=== PATIENT | male | born 1945 | race Caucasian/White ===

== ENCOUNTER → 2016-09-14 | Outpatient (CLI) | payer MEDICARE, OTHER ==
[~2016-09-14] MED LIST: ALPR-557 GT; ALPR1T PO; ASP81CT PO; ASPI-875 PO; ATRV10T PO; BARIUM SUSPENSION 2.1% (VANILLA SILQ) 450 ML PO ONE; CATHETER FLUSH 10 ML SYR IV PRN; CITA-105 PO; CLOP75TA PO; CLR7.5T PO; CTLP20T PO; HYDR28CR10 TP; IBUP-30 PO; IOHEXOL 350 MG/ML 100 ML (OMNIPAQUE 350) VIAL IV ONE; ISM30TCR PO; LEVO200T30 PO; LOPE2CAP PO; LVT.1T PO; MTP100TCR PO; NEBI20TA2 PO; NFNEB10T PO; NS 100 ML (IVPB) BAG IV ONE; OMEG-9 PO; OMEP20CA6 PO; OMEP40CA36 PO; OMG1KC PO; PNT40TEC PO
[2016-09-14] MEDS: CATHETER FLUSH 10 ML SYR IV PRN ×2 (11:56→12:34)
[2016-09-14 12:09] LABS: BLOOD UREA NITROGEN 4 MG/DL (7-18); BUN/CREATININE RATIO 5 (0-20); CREATININE SERUM 0.83 MG/DL (0.60-1.30); GFR ESTIMATED > 60
--- NOTE | 2016-09-14 13:18 | Diagnostic Imaging Report ---
PROCEDURE: CT abdomen and pelvis with contrast. TECHNIQUE: Multiple contiguous axial images were obtained through the abdomen and pelvis after administration of intravenous contrast. INDICATION: Prostate cancer. COMPARISON: 05/31/14 FINDINGS: The lung bases demonstrate no significant abnormality. There is diffuse hepatic steatosis. The right hepatic lobe demonstrates a 1.5 cm hypodense lesion adjacent to the gallbladder and in the upper aspect of the left hepatic lobe there is a 1.7 cm hypodense lesion noted posteriorly. When compared to 05/31/2014 exam, these appear stable suggestive of benign etiology, possibly cysts. No calcified gallstones are seen. The spleen is not enlarged. The pancreas demonstrates a nonspecific focal calcification in the uncinate process similar to 05/31/14 with no associated mass identified. The adrenal glands appear unremarkable. The kidneys have symmetric enhancement and excretion. There is no hydronephrosis. The abdominal aorta is normal in caliber. No para-aortic significantly enlarged lymph nodes are seen. Tiny fat-containing periumbilical hernia seen. There is a direct fat-containing right inguinal hernia. The prostate is enlarged and slightly heterogeneous. It measures 5.3 cm in transverse dimension. There is no bowel obstruction. There is diverticulosis mostly in the sigmoid colon with no evidence of diverticulitis. No significant free fluid or fluid collection in the abdomen or pelvis is seen. The urinary bladder appears unremarkable. IMPRESSION: 1. The prostate is enlarged and heterogeneous with no abdominal or pelvic lymphadenopathy or evidence of metastasis. 2. Hepatic steatosis. 3. Diverticulosis. No diverticulitis. 4. Fat-containing periumbilical and right inguinal hernias. Dictated by: Dictated on workstation # [id number]
--- NOTE | 2016-09-14 16:06 | Diagnostic Imaging Report ---
Whole body bone scan. Technique: After the intravenous administration of 27.1 mCi of Technetium 99m MDP, whole body delayed phase bone scan images were obtained with lateral views of the head and neck and the chest regions. Indication: Prostate cancer. Findings: There is normal distribution of the tracer in the osseous structures with mild increased tracer activity in joints compatible with degenerative changes. There is photopenia around the knees suggestive of knee replacement. Urinary tract excretion is noted. No suspicious foci of increased activity particularly within the axial skeleton to suggest metastasis. IMPRESSION: No scintigraphic evidence of osseous metastasis. Dictated by: Dictated on workstation # [id number]
== END ==
LOC: CARD 11:21
PROVIDERS: ATTEND Urology
DX: C61 Malignant neoplasm of prostate (principal)
CPT/HCPCS: 36415; 74177; 78306; 82565; 84520

== ENCOUNTER 2017-05-26 10:40 | Day surgery (SDC) | payer MEDICARE, OTHER ==
[2017-05-26] VITALS (10 sets, daily range): BP systolic 114–151; BP diastolic 72–93
[~2017-05-26] VITALS: Ht 167.6 cm; Wt 79.8 kg
[~2017-05-26 10:40] MED LIST changes: -BARIUM SUSPENSION 2.1% (VANILLA SILQ) 450 ML PO ONE; -CATHETER FLUSH 10 ML SYR IV PRN; -IOHEXOL 350 MG/ML 100 ML (OMNIPAQUE 350) VIAL IV ONE; -NS 100 ML (IVPB) BAG IV ONE
--- OUTSIDE RECORDS SUMMARY | 2017-05-26 10:43 | XMS REPORT ---
Author BOB Gudino Organization [employer] Address Unknown Phone Unavailable Care Team Providers Care Embalmer Apprentice Name Role Phone BOB JOEL CP Unavailable Allergies No Known Allergies Problems Problem Type Condition ICD-9 Code Onset Dates Condition Status Assessment Dental examination V72.2 Active Medications No Known Medications Procedures Procedure Coding System Code Date Billing Notes on claim CPT-4 EC109 Dec 05, 2014 CROWN - PORCELAIN/CERAMIC SUBSTRATE CPT-4 D2740 Dec 05, 2014 Results No Known Results Summary Purpose [employer] Submission
--- OUTSIDE RECORDS SUMMARY | 2017-05-26 10:43 | XMS REPORT ---
Author CONCETTA Lopez Organization [employer] Address Unknown Phone Unavailable Care Team Providers Care Gill Tender Name Role Phone CONCETTA HERNANDEZ CP Unavailable Allergies, Adverse Reactions, Alerts Substance Reaction Event Type Sulfamethoxazole Info Not Available Drug Allergy Penicillin V Potassium Info Not Available Drug Allergy Problems Problem Type Condition Code Onset Dates Condition Status Assessment Dental examination Z01.20 Active Medications No Known Medications Procedures Procedure Coding System Code Date Billing Notes on claim CPT-4 EC109 Jan 01, 2015 CROWN - PORCELAIN/CERAMIC SUBSTRATE CPT-4 D2740 Dec 31, 2014 Vital Signs Date/Time: Jan 01, 2015 Blood Pressure Diastolic 91 mmHg Blood Pressure Systolic 130 mmHg Results No Known Results Summary Purpose [employer] Submission
--- OUTSIDE RECORDS SUMMARY | 2017-05-26 10:43 | XMS REPORT ---
Author Author KIMBERLI GARY Organization [employer] Address Unknown Phone Unavailable Care Team Providers Care Dental Insurance Biller Name Role Phone KIMBERLI GARY CP Unavailable Allergies No Known Allergies Problems Problem Type Condition Code Onset Dates Condition Status Assessment Dental examination Z01.20 Active Problem Major depressive disorder, recurrent episode, moderate F33.1 Active Medications No Known Medications Procedures Procedure Coding System Code Date Billing Notes on claim CPT-4 EC109 Dec 17, 2015 Results No Known Results Summary Purpose [employer] Submission
--- OUTSIDE RECORDS SUMMARY | 2017-05-26 10:43 | XMS REPORT ---
Author ANABELL Fallon Organization [employer] Address Unknown Phone Unavailable Care Team Providers Care Hadoop Infrastructure Architect Name Role Phone ANABELL SILVA CP Unavailable Allergies No Known Allergies Problems Problem Type Condition ICD-9 Code Onset Dates Condition Status Assessment Dental examination V72.2 Active Medications No Known Medications Procedures Procedure Coding System Code Date INTRAORL-PERIAPICAL 1 FILM 83067 CPT-4 D0220 October 19, 2014 INTRAORL-PERIAPICAL EA ADD FILM CPT-4 D0230 October 19, 2014 COMP ORAL EVALUATION - NEW/EST PT CPT-4 D0150 October 19, 2014 TOPICAL FLUORIDE VARNISH CPT-4 D1206 October 19, 2014 BITEWINGS - FOUR FILMS CPT-4 D0274 October 19, 2014 INTRAORL-PERIAPICAL EA ADD FILM CPT-4 D0230 October 19, 2014 PROPHYLAXIS - ADULT CPT-4 D1110 October 19, 2014 PANORAMIC FILM SEE ALSO CODE 88022 CPT-4 D0330 October 19, 2014 Results No Known Results Summary Purpose [employer] Submission
--- OUTSIDE RECORDS SUMMARY | 2017-05-26 10:43 | XMS REPORT ---
Author Author KIMBERLI GARY [facility] Address Unknown Care Team Providers Care Hardwood Flooring Specialist Name Role Phone KIMBERLI GARY Unavailable PROBLEMS Type Condition ICD9-CM Code DTO32-RL Code Onset Dates Condition Status SNOMED Code Problem Major depressive disorder, recurrent episode, moderate F33.1 Active [id number] ALLERGIES Substance Reaction Event Type Date Status Sulfamethoxazole Unknown Drug Allergy Jun, Active Penicillin V Potassium Unknown Drug Allergy Jun, Active SOCIAL HISTORY Never Assessed PLAN OF CARE Activity Details Follow Up prn Reason:PT WILL CALL VITAL SIGNS Blood pressure systolic 155 mmHg 2016-07-07 Blood pressure diastolic 85 mmHg 2016-07-07 MEDICATIONS Medication Instructions Dosage Frequency Start Date End Date Duration Status Xanax Active Bystolic Active Synthroid Active Aspir-81 Active Lexapro Active Lipitor Active RESULTS No Results PROCEDURES Procedure Date Ordered Result Body Site Dental no charge July 07, 2016 IMMUNIZATIONS No Known Immunizations MEDICAL (GENERAL) HISTORY Type Description Date Medical History HBP Medical History Thyroid Medical History Blood thinners Surgical History Stent placed 2012
--- OUTSIDE RECORDS SUMMARY | 2017-05-26 10:44 | XMS REPORT | Continuity of Care Document ---
Author Author [facility] Organization [facility] Address Unknown Phone Unavailable Allergies Active Description Code Type Severity Reaction Onset Reported/Identified Relationship to Patient Clinical Status Yes Penicillins [id number] Drug Allergy Unknown N/A 03/09/2011 Medications There is no data. Problems Date Dx Coded Attending Type Code Diagnosis Diagnosed By 03/13/2011 Ot 244.0 POSTSURGICAL HYPOTHYROID 03/13/2011 Ot 276.1 HYPOSMOLALITY 03/13/2011 Ot 291.0 DELIRIUM TREMENS 03/13/2011 Ot 300.00 ANXIETY STATE NOS 03/13/2011 Ot 303.00 AC ALCOHOL INTOX-UNSPEC 03/13/2011 Ot 401.9 HYPERTENSION NOS 03/13/2011 Ot 411.1 INTERMED CORONARY SYND 03/13/2011 Ot 414.01 CORONARY ATHEROSCLEROSIS OF [place] CORON 03/13/2011 Ot 571.0 ALCOHOLIC FATTY LIVER 03/13/2011 Ot 787.60 FULL INCONTINENCE OF FECES 03/13/2011 Ot V12.79 PERSONAL HISTORY OTH SPEC DIGESTIVE SYST 03/13/2011 Ot V15.82 HISTORY OF TOBACCO USE 03/13/2011 Ot V17.3 FAM HX- ISCHEM HEART DIS 01/03/2013 SELAM CALLEJAS MD Ot 244.9 HYPOTHYROIDISM NOS 01/03/2013 SELAM CALLEJAS MD Ot 272.4 HYPERLIPIDEMIA NEC/NOS 01/03/2013 SELAM CALLEJAS MD Ot 300.00 ANXIETY STATE NOS 01/03/2013 SELAM CALLEJAS MD Ot 305.1 TOBACCO USE DISORDER 01/03/2013 SELAM CALLEJAS MD Ot 401.9 HYPERTENSION NOS 01/03/2013 SELAM CALLEJAS MD Ot 414.01 CORONARY ATHEROSCLEROSIS OF [place] CORON 01/03/2013 SELAM CALLEJAS MD Ot 414.4 CORONARY ATHEROSCLEROSIS DUE TO [place] 01/03/2013 SELAM CALLEJAS MD Ot 530.81 ESOPHAGEAL REFLUX 01/03/2013 SELAM CALLEJAS MD Ot 786.50 CHEST PAIN NOS 01/03/2013 SELAM CALLEJAS MD Ot V45.82 PERCUTANEOUS TRANSLUM CORON ANGIOPLASTY 01/03/2013 SELAM CALLEJAS MD Ot V58.66 LONG-TERM (CURRENT) USE OF ASPIRIN 01/03/2013 SELAM CALLEJAS MD Ot V58.69 OTH MED,LT,CURRENT USE 06/22/2014 Ot 550.90 06/22/2014 Ot 553.1 06/22/2014 Ot 562.10 06/22/2014 Ot 571.8 12/27/2014 ELIZABETH ANAND REAL ESTATE APPRAISER Ot 611.71 01/14/2015 ELIZABETH ANAND REAL ESTATE APPRAISER Ot 611.71 09/27/2015 Ot 562.10 DIVERTICULOSIS COLON (W/O MENT OF HEMORR 09/27/2015 Ot 786.50 CHEST PAIN NOS 09/27/2015 Ot 789.00 ABDOMINAL PAIN, UNSPECIFIED SITE 11/22/2015 Ot 401.1 BENIGN HYPERTENSION 11/22/2015 Ot 562.10 DIVERTICULOSIS COLON (W/O MENT OF HEMORR 11/22/2015 Ot 786.50 CHEST PAIN NOS 11/22/2015 Ot 789.00 ABDOMINAL PAIN, UNSPECIFIED SITE 11/22/2015 SELAM CALLEJAS MD Ot 397.0 TRICUSPID VALVE DISEASE 11/22/2015 SELAM CALLEJAS MD Ot 414.00 CORON ATHEROSCLER NOS TYPE VESSEL, NATIV 11/22/2015 SELAM CALLEJAS MD Ot 424.0 MITRAL VALVE DISORDER 11/22/2015 SELAM CALLEJAS MD Ot 786.50 CHEST PAIN NOS 11/22/2015 SELAM CALLEJAS MD Ot 414.01 CORONARY ATHEROSCLEROSIS OF [place] CORON 11/22/2015 SELAM CALLEJAS MD Ot 786.50 CHEST PAIN NOS 11/22/2015 CANDIDO ESCALANTE MD Ot 331.9 CEREB DEGENERATION NOS 11/22/2015 CANDIDO ESCALANTE MD Ot 721.3 LUMBOSACRAL SPONDYLOSIS 11/22/2015 CANDIDO ESCALANTE MD Ot 723.0 CERVICAL SPINAL STENOSIS 11/22/2015 CANDIDO ESCALANTE MD Ot 782.0 SKIN SENSATION DISTURB 11/22/2015 CANDIDO ESCALANTE MD Ot 959.01 HEAD INJURY, NOS 11/22/2015 CANDIDO ESCALANTE MD Ot E888.9 FALL NOS 11/22/2015 Ot 550.90 UNILAT INGUINAL HERNIA 11/22/2015 Ot 553.1 UMBILICAL HERNIA 11/22/2015 Ot 562.10 DIVERTICULOSIS COLON (W/O MENT OF HEMORR 11/22/2015 Ot 571.8 CHRONIC LIVER DIS NEC 11/22/2015 CHENG ELIZABETHBirgit Live APRN Ot 611.71 MASTODYNIA 11/25/2015 KIRAN CANTU Ot E78.2 MIXED HYPERLIPIDEMIA 11/25/2015 KIARN CANTU Ot I10 ESSENTIAL (PRIMARY) HYPERTENSION 11/25/2015 MIYA RODGERS, KIRAN Dowd Ot I25.10 ATHSCL HEART DISEASE OF [place] CORONARY 11/25/2015 KIARN CANTU Ot Z72.0 TOBACCO USE 11/28/2015 KIRAN CANTU Ot E78.2 MIXED HYPERLIPIDEMIA 11/28/2015 ZEE CANTUTH Noemí Ot I10 ESSENTIAL (PRIMARY) HYPERTENSION 11/28/2015 KIRAN CANTU Ot I25.10 ATHSCL HEART DISEASE OF [place] CORONARY 11/28/2015 KIRAN CANTU Ot Z72.0 TOBACCO USE 12/03/2015 KIRAN CANTU Ot E78.2 MIXED HYPERLIPIDEMIA 12/03/2015 ZEE CANTUTH K Ot I10 ESSENTIAL (PRIMARY) HYPERTENSION 12/03/2015 KIRAN CANTU Ot I25.10 ATHSCL HEART DISEASE OF [place] CORONARY 12/03/2015 KIRAN CANTU K Ot Z72.0 TOBACCO USE 12/17/2015 KIRAN CANTU Ot E78.2 MIXED HYPERLIPIDEMIA 12/17/2015 ZEE CANTUTH K Ot I10 ESSENTIAL (PRIMARY) HYPERTENSION 12/17/2015 KIRAN CANTU K Ot I25.10 ATHSCL HEART DISEASE OF [place] CORONARY 12/17/2015 KIRAN CANTU Ot Z72.0 TOBACCO USE 12/18/2015 KIRAN CANTU Ot E78.2 MIXED HYPERLIPIDEMIA 12/18/2015 ZEE CANTUTH K Ot I10 ESSENTIAL (PRIMARY) HYPERTENSION 12/18/2015 KIRAN CANTU Ot I25.10 ATHSCL HEART DISEASE OF [place] CORONARY 12/18/2015 KIRAN CANTU Ot Z72.0 TOBACCO USE 09/09/2016 SELAM CALLEJAS MD Ot 397.0 TRICUSPID VALVE DISEASE 09/09/2016 SELAM CALLEJAS MD Ot 414.00 CORON ATHEROSCLER NOS TYPE VESSEL, NATIV 09/09/2016 SELAM CALLEJAS MD Ot 424.0 MITRAL VALVE DISORDER 09/09/2016 SELAM CALLEJAS MD Ot 786.50 CHEST PAIN NOS 09/09/2016 SELAM CALLEJAS MD Ot 414.01 CORONARY ATHEROSCLEROSIS OF [place] CORON 09/09/2016 SELAM CALLEJAS MD Ot 786.50 CHEST PAIN NOS 09/09/2016 CANDIDO ESCALANTE MD Ot 331.9 CEREB DEGENERATION NOS 09/09/2016 CANDIDO ESCALANTE MD Ot 721.3 LUMBOSACRAL SPONDYLOSIS 09/09/2016 CANDIDO ESCALANTE MD Ot 723.0 CERVICAL SPINAL STENOSIS 09/09/2016 CANDIDO ESCALANTE MD Ot 782.0 SKIN SENSATION DISTURB 09/09/2016 CANDIDO ESCALANTE MD Ot 959.01 HEAD INJURY, NOS 09/09/2016 CANDIDO ESCALANTE MD Ot E888.9 FALL NOS 09/09/2016 Ot 550.90 UNILAT INGUINAL HERNIA 09/09/2016 Ot 553.1 UMBILICAL HERNIA 09/09/2016 Ot 562.10 DIVERTICULOSIS COLON (W/O MENT OF HEMORR 09/09/2016 Ot 571.8 CHRONIC LIVER DIS NEC 09/09/2016 ELIZABETH ANAND APRN Ot 611.71 MASTODYNIA 09/09/2016 KIRAN CANTU Ot E78.2 MIXED HYPERLIPIDEMIA 09/09/2016 KIRAN CANTU Ot I10 ESSENTIAL (PRIMARY) HYPERTENSION 09/09/2016 KIRAN CANTU Ot I25.10 ATHSCL HEART DISEASE OF [place] CORONARY 09/09/2016 KIRAN CANTU Ot Z72.0 TOBACCO USE 09/09/2016 KIRAN CANTU Ot E78.2 MIXED HYPERLIPIDEMIA 09/09/2016 KIRAN CANTU Ot I10 ESSENTIAL (PRIMARY) HYPERTENSION 09/09/2016 KIRAN CANTU Ot I25.10 ATHSCL HEART DISEASE OF [place] CORONARY 09/09/2016 KIRAN CANTU Ot Z72.0 TOBACCO USE 09/10/2016 SELAM CALLEJAS MD Ot 397.0 TRICUSPID VALVE DISEASE 09/10/2016 SELAM CALLEJAS MD Ot 414.00 CORON ATHEROSCLER NOS TYPE VESSEL, NATIV 09/10/2016 SELAM CALLEJAS MD Ot 424.0 MITRAL VALVE DISORDER 09/10/2016 SELAM CALLEJAS MD Ot 786.50 CHEST PAIN NOS 09/10/2016 SELAM CALLEJAS MD Ot 414.01 CORONARY ATHEROSCLEROSIS OF [place] CORON 09/10/2016 SELAM CALLEJAS MD Ot 786.50 CHEST PAIN NOS 09/10/2016 CANDIDO ESCALANTE MD Ot 331.9 CEREB DEGENERATION NOS 09/10/2016 CANDIDO ESCALANTE MD Ot 721.3 LUMBOSACRAL SPONDYLOSIS 09/10/2016 CANDIDO ESCALANTE MD Ot 723.0 CERVICAL SPINAL STENOSIS 09/10/2016 CANDIDO ESCALANTE MD Ot 782.0 SKIN SENSATION DISTURB 09/10/2016 CANDIDO ESCALANTE MD Ot 959.01 HEAD INJURY, NOS 09/10/2016 CANDIDO ESCALANTE MD Ot E888.9 FALL NOS 09/10/2016 Ot 550.90 UNILAT INGUINAL HERNIA 09/10/2016 Ot 553.1 UMBILICAL HERNIA 09/10/2016 Ot 562.10 DIVERTICULOSIS COLON (W/O MENT OF HEMORR 09/10/2016 Ot 571.8 CHRONIC LIVER DIS NEC 09/10/2016 ELIZABETH ANAND APRN Ot 611.71 MASTODYNIA 09/10/2016 KIRAN CANTU Ot E78.2 MIXED HYPERLIPIDEMIA 09/10/2016 KIRAN CANTU Ot I10 ESSENTIAL (PRIMARY) HYPERTENSION 09/10/2016 KIRAN CANTU Ot I25.10 ATHSCL HEART DISEASE OF [place] CORONARY 09/10/2016 KIRAN CANTU Ot Z72.0 TOBACCO USE 09/10/2016 KIRAN CANTU Ot E78.2 MIXED HYPERLIPIDEMIA 09/10/2016 KIRAN CANTU Ot I10 ESSENTIAL (PRIMARY) HYPERTENSION 09/10/2016 KIRAN CATNU Ot I25.10 ATHSCL HEART DISEASE OF [place] CORONARY 09/10/2016 KIRAN CANTU Ot Z72.0 TOBACCO USE 09/14/2016 SELAM CALLEJAS MD Ot 397.0 TRICUSPID VALVE DISEASE 09/14/2016 SELAM CALLEJAS MD Ot 414.00 CORON ATHEROSCLER NOS TYPE VESSEL, NATIV 09/14/2016 SELAM CALLEJAS MD Ot 424.0 MITRAL VALVE DISORDER 09/14/2016 SELAM CALLEJAS MD Ot 786.50 CHEST PAIN NOS 09/14/2016 SELAM CALLEJAS MD Ot 414.01 CORONARY ATHEROSCLEROSIS OF [place] CORON 09/14/2016 SELAM CALLEJAS MD Ot 786.50 CHEST PAIN NOS 09/14/2016 CANDIDO ESCALANTE MD Ot 331.9 CEREB DEGENERATION NOS 09/14/2016 CANDIDO ESCALANTE MD Ot 721.3 LUMBOSACRAL SPONDYLOSIS 09/14/2016 CANDIDO ESCALANTE MD Ot 723.0 CERVICAL SPINAL STENOSIS 09/14/2016 CANDIDO ESCALANTE MD Ot 782.0 SKIN SENSATION DISTURB 09/14/2016 CANDIDO ESCALANTE MD Ot 959.01 HEAD INJURY, NOS 09/14/2016 CANDIDO ESCALANTE MD Ot E888.9 FALL NOS 09/14/2016 Ot 550.90 UNILAT INGUINAL HERNIA 09/14/2016 Ot 553.1 UMBILICAL HERNIA 09/14/2016 Ot 562.10 DIVERTICULOSIS COLON (W/O MENT OF HEMORR 09/14/2016 Ot 571.8 CHRONIC LIVER DIS NEC 09/14/2016 ELIZABETH ANAND APRN Ot 611.71 MASTODYNIA 09/14/2016 KIRAN CANTU Ot E78.2 MIXED HYPERLIPIDEMIA 09/14/2016 KIRAN CANTU Ot I10 ESSENTIAL (PRIMARY) HYPERTENSION 09/14/2016 KIRAN CANTU Ot I25.10 ATHSCL HEART DISEASE OF [place] CORONARY 09/14/2016 KIRAN CANTU Ot Z72.0 TOBACCO USE 09/14/2016 KIRAN CANTU Ot E78.2 MIXED HYPERLIPIDEMIA 09/14/2016 KIRAN CANTU Ot I10 ESSENTIAL (PRIMARY) HYPERTENSION 09/14/2016 KIRAN CANTU Ot I25.10 ATHSCL HEART DISEASE OF [place] CORONARY 09/14/2016 KIRAN CANTU Ot Z72.0 TOBACCO USE 09/14/2016 KIRAN CANTU Ot E78.2 MIXED HYPERLIPIDEMIA 09/14/2016 KIRAN CANTU Ot I10 ESSENTIAL (PRIMARY) HYPERTENSION 09/14/2016 KIRAN CANTU Ot I25.10 ATHSCL HEART DISEASE OF [place] CORONARY 09/14/2016 KIRAN CANTU Ot Z72.0 TOBACCO USE 09/14/2016 YANET ALONSO, SAY Becerra Ot C61 MALIGNANT NEOPLASM OF PROSTATE 09/16/2016 SAY HOLT MD, Ot C61 MALIGNANT NEOPLASM OF PROSTATE 10/07/2016 SAY HOLT MD, Ot C61 MALIGNANT NEOPLASM OF PROSTATE Procedures Code Description Performed By Performed On 94.62 03/09/2011 88.56 03/10/2011 00.40 03/12/2011 00.45 03/12/2011 00.66 03/12/2011 36.07 03/12/2011 Results Test Result Range [id number] - 09/14/16 11:51 Serum or plasma urea nitrogen measurement (mass/volume) 4 mg/dL 7-18 Serum or plasma creatinine measurement (mass/volume) 0.83 mg/dL 0.60-1.30 Serum or plasma urea nitrogen/creatinine mass ratio 5 0- 20 Serum or plasma creatinine measurement with calculation of estimated glomerular filtration rate > NRG Encounters ACCT No. Visit Date/Time Discharge Status Pt. Type Provider Facility Loc./Unit Complaint [id number] 09/14/2016 11:21:00 09/14/2016 23:59:59 CLS Outpatient SAY HOLT MD [facility] CARD CA PROSTATE [id number] 11/27/2015 11:26:00 11/27/2015 23:59:59 CLS Outpatient KIRAN CANTU [facility] CARD CAD,HTN,HLP [id number] 11/22/2015 12:49:00 11/22/2015 23:59:59 CLS Outpatient KIRAN CANTU [facility] CARD CAD,HTN,HLP [id number] 12/07/2014 08:58:00 12/07/2014 23:59:59 CLS Outpatient ELIZABETH ANAND APRN [facility] RAD LEFT BREAST PAIN [id number] 08/18/2013 13:46:00 08/18/2013 23:59:59 CLS Outpatient CANDIDO ESCALANTE MD [facility] RAD FALL TRAUMA TO HEAD [id number] 03/27/2013 13:17:00 03/27/2013 23:59:59 CLS Outpatient CANDIDO ESCALANTE MD [facility] RAD LEFT SIDE [place], SPASTICITY [id number] 01/03/2013 10:28:00 01/03/2013 17:00:00 DIS Outpatient SELAM CALLEJAS MD [facility] CATH CHEST PAIN,CAD,HTN,SOB [id number] 12/06/2012 11:56:00 12/06/2012 23:59:59 CLS Outpatient SELAM CALLEJAS MD [facility] RAD CP,CAD [id number] 12/01/2012 07:53:00 12/01/2012 23:59:59 CLS Outpatient SELAM CALLEJAS MD [facility] CARD CP,CAD [id number] 11/22/2015 12:49:00 Document Registration [id number] 05/31/2014 10:04:00 Document Registration [id number] 03/09/2011 16:09:00 Document Registration [id number] 03/09/2011 13:47:00 Document Registration [id number] 02/23/2011 10:43:00 Document Registration
[2017-05-26] MEDS ORDERED: NS IV 1000 ML 1,000 ML ONE (11:42)
[2017-05-26] MEDS ORDERED: HEParin (CATH LAB) 2,000 ML IV ONE (11:42)
[2017-05-26] MEDS ORDERED: LIDOCAINE 1% INJ 50 ML (XYLOCAINE) VIAL ONE (11:42)
[2017-05-26] MEDS ORDERED: INFLUENZA TRIvalent 2017-2018 0.5 ML/45 MCG SYR IM ONE (12:15)
[2017-05-26] MEDS ORDERED: NS IV 1000 ML 1,000 ML IV ONE (12:15)
[2017-05-26 12:17] LABS: HEMOGLOBIN 15.4 G/DL (13.3-17.7); MEAN PLATELET VOLUME 9.7 FL (7.4-10.4); RED BLOOD COUNT 4.88 10^6/uL (4.35-5.85); RED CELL DISTRIBUTION WIDTH 13.4 % (10.0-14.5); WHITE BLOOD COUNT 5.6 10^3/uL (4.3-11.0)
[2017-05-26] MEDS ORDERED: LEVO100T7 PO (12:22)
[2017-05-26] MEDS ORDERED: NFNEB10T PO (12:23)
[2017-05-26] MEDS ORDERED: ESCI20TA PO (12:23)
[2017-05-26] MEDS ORDERED: FOLI-88 PO (12:24)
[2017-05-26] MEDS ORDERED: ALPR1TAB7 PO (12:25)
[2017-05-26 12:28] LABS: PROTHROMBIN TIME PATIENT 13.6 SEC (12.2-14.7)
--- NOTE | 2017-05-26 12:35 | Diagnostic Imaging Report ---
INDICATION: pre op heart cath COMPARISON: 01/03/2013 FINDINGS: Single frontal view of the chest demonstrates normal heart size and pulmonary vascularity. The lungs are well aerated and clear. No large pleural effusion or pneumothorax is seen. The visualized osseous structures show no acute abnormalities. There is calcified aortic atherosclerosis. IMPRESSION: 1. No acute cardiopulmonary process. Dictated by: Dictated on workstation # [id number]
[2017-05-26 12:36] LABS: ALANINE AMINOTRANSFERASE 50 U/L (0-55); ALBUMIN 3.7 GM/DL (3.2-4.5); ALKALINE PHOSPHATASE 92 U/L (40-136); BILIRUBIN,TOTAL 1.2 MG/DL (0.1-1.0); BUN/CREATININE RATIO 6; CALCIUM 8.5 MG/DL (8.5-10.1); CARBON DIOXIDE 22 MMOL/L (21-32); CHLORIDE 101 MMOL/L (98-107); CHOLESTEROL 126 MG/DL (< 200); CREATININE SERUM 0.62 MG/DL (0.60-1.30); GFR ESTIMATED > 60; GLUCOSE 84 MG/DL (70-105); HDL CHOLESTEROL 51 MG/DL (40-60); POTASSIUM 3.8 MMOL/L (3.6-5.0); SODIUM 135 MMOL/L (135-145); TOTAL PROTEIN 7.2 GM/DL (6.4-8.2); TRIGLYCERIDES 58 MG/DL (<150); VLDL CHOLESTEROL 12 MG/DL (5-40)
[2017-05-26] MEDS ORDERED: fentaNYL INJECTION 100 MCG/2 ML AMP ONE (14:39)
[2017-05-26] MEDS ORDERED: MIDAZOLAM 5 MG/5 ML (VERSED) VIAL ONE (14:39)
--- NOTE | 2017-05-26 14:55 | Cardiac Procedure Note-CS/ASA ---
Pre-Procedure Note Pre-Op Procedure Note H&P Reviewed The H&P was reviewed, patient examined and no changes noted. Date H&P Reviewed: May 26, 2017 Time H&P Reviewed: 14:55 Conscious Sedation Pre-Proced Time Reviewed: 14:55 ASA Class: 3 Airway Mallampati Classification: ([place] appropriate class) I. II. III, IV Lungs Heart ASA score ASA 1: a normal healthy patient ASA 2: a patient with a mild systemic disease (mid diabetes, controlled hypertension, obesity x ASA 3: a patient with a severe systemic disease that limits activity (angina , COPD, prior Myocardial infarction) ASA 4: a patient with an incapacitating disease that is a constant threat to life (CHF, renal failure) ASA 5: a moribund patient not expected to survive 24 hrs. (ruptured aneurysm) ASA 6: a declared brain patient whose organs are being harvested. For emergent operations, add the letter E after the classification Grade 3 Sedation Plan: Analgesia, Amnesia, Plan communicated to team members, Discussed options with patient/fam, Discussed risks with patient/fam Note The patient is an appropriate candidate to undergo the planned procedure, sedation, and anesthesia. The patient immediately re-assessed prior to indication. SELAM CALLEJAS MD May 26, 2017 14:55
[2017-05-26] MEDS ORDERED: NS IV 1000 ML 1,000 ML IV SCH (15:05)
--- NOTE | 2017-05-26 15:07 | Discharge Inst-Post CATH ---
Discharge Inst-CATH Post Cardiac Cath D/C Inst Follow Up/Plan Appointment with Dr. Coughlin's office in 4 weeks CARDIAC CATH DISCHARGE INSTRUCTIONS *Hold Metformin for 48 hours post heart cath. ACTIVITY * Go Home directly and rest. * Limit activity of the leg (or wrist if it was used) for 7 days including aerobics, swimming, jogging, bicycling, etc. * Restrict stair-climbing for 7 days if possible, if not, climb up with your non -cath leg, then bring together on the same step. * Avoid lifting, pushing, pulling or excessive movement of the affected extremity for 7 days. * Customary sexual activity may be resumed after 2 days-use caution not to use a position that strains or causes pain to the affected extremity. * No driving for 24 hours. * NO SMOKING. * Avoid straining for bowel movements for 7 days. * Gentle walking on level ground is allowed. * Returning to work will depend on the type of procedure and the results. Your doctor will discuss this with you. CALL YOUR DOCTOR FOR ANY OF THE FOLLOWING: *If bleeding from the puncture site occurs- Apply gentle pressure to site with clean cloth and call your doctor or EMS. * If a knot or lump forms under the skin, increases in size, or causes pain. * If bruising appears to be worsening or moving further down your leg instead of disappearing. * Temperature above 101 F. CARE OF YOUR GROIN INCISION; * Bruising or purple discoloration of the skin near the puncture site is common. * You may shower only, no bathtub bathing for 5 days. Be careful to avoid slipping as your leg may feel stiff. * If a closure device was used on your femoral artery, please see the attached guide regarding care of the device and your leg. * REMOVE the dressing from your groin the next day after your procedure in the shower. CARE OF YOUR WRIST INCISION; * Bruising or purple discoloration of the skin near the puncture site is common. * You may shower. * DO NOT submerge wrist. * Remove dressing in 24 hours. SELAM COUGHLIN MD May 26, 2017 15:07
[2017-05-26] MEDS ORDERED: PATIENT MAY USE OWN MEDS, ALL PO SCH (15:15)
--- NOTE | 2017-05-26 15:55 | Cardiac Cath Report ---
Cardiac Cath Report Physician (s)/Rougher Helper (s) Physician SELAM CALLEJAS MD Pre-Procedure Diagnosis Pre-Procedure Diagnosis: Coronary artery disease, chest pain Post-Procedure Note Procedure Start Date: May 26, 2017 Name of Procedure: Left heart catheterization, left ventriculogram Findings/Procedure Note PROCEDURE NOTE: After explaining the procedure to the patient, all pros and cons were explained, all questions were answered. The patient signed the consent and then she was placed on the cardiac catheterization laboratory. The patient was placed on the cardiac catheterization laboratory. Groin was prepped SL fashion local anesthesia was used. Sheath placed in the right femoral artery. Eligio right and left catheter were used to access the coronary system. Eligio right was advanced to the right ventricular cavity, pressure was measured, left ventricular gram was done At the end of the procedure the sheath was removed. Closure device was used FINDINGS: Hemodynamics LV 135/15, end-diastolic pressure 15 Aorta 145/80, mean of 62 ANATOMY: Left Main is free of obstructive disease Left Anterior Descending has patent stent with 30-40 percent in-stent restenosis , mild disease distally Left Circumflex has mild disease nonobstructive disease Right Coronory Artery is dominant with mild disease nonobstructive disease LV Gram was done showing normal left ventricular size and normal contracted T with ejection fraction 60 percent CONCLUSION: 1. Patent stent in the mid LAD with mild in-stent restenosis, mild coronary artery disease otherwise nonobstructive disease 2. Normal left ventricular size and systolic function estimated ejection fraction 60 percent DISCUSSION AND RECOMMENDATION: medical therapy is recommended no intervention is warranted Anesthesia Type: Conscious Sedation Estimated blood loss (mL): 10 ml Contrast Amount: 35 ml Total Radiation Dose: 477 mGy Post-Procedure Diagnosis Post-operative diagnosis: Chest pain nonspecific etiology Coronary artery disease Hypertension Hyperlipidemia SELAM CALLEJAS MD May 26, 2017 15:55
== END 2017-05-26 19:12 | disposition home or self-care (01) ==
LOC: CATH 10:40 → ICU 15:25 → CATH 19:12
PROVIDERS: ATTEND Internal Medicine Cardiovascular Disease
DX: R07.9 Chest pain, unspecified (principal); I25.10 Atherosclerotic heart disease of native coronary artery without angina pectoris; I10 Essential (primary) hypertension; E78.5 Hyperlipidemia, unspecified; E03.9 Hypothyroidism, unspecified; Z88.0 Allergy status to penicillin; Z88.2 Allergy status to sulfonamides; Z79.82 Long term (current) use of aspirin; Z79.899 Other long term (current) drug therapy; F17.210 Nicotine dependence, cigarettes, uncomplicated; F32.9 Major depressive disorder, single episode, unspecified; R09.89 Other specified symptoms and signs involving the circulatory and respiratory systems
CPT/HCPCS: 36415; 71045; 80053; 80061; 85027; 85610; 85730; 87081; 93458

== ENCOUNTER → 2017-12-29 | Outpatient (CLI) | payer MEDICARE, OTHER ==
[~2017-12-29] MED LIST changes: +ALPR1TAB7 PO; +ESCI20TA PO; +FOLI-88 PO; +LEVO100T7 PO
--- NOTE | 2017-12-29 11:29 | Diagnostic Imaging Report ---
Lumbar spine. INDICATION: Back pain. AP, lateral and spot lateral views were obtained. FINDINGS: As noted on the thoracic spine exam performed in conjunction with the study, there is a 40-50% compression deformity of superior endplate of L1. This finding was not present on the prior CT abdomen/pelvis exam of 09/14/2016 and consequently this injury could be acute or subacute in nature. If further imaging is desired, then MRI would be recommended. There is no acute bony abnormality noted otherwise. There is narrowing of the disc spaces at L4-L5 and L5-S1 and there is vacuum disc formation at these 2 levels. The other intervertebral disc space is well-maintained. There is no sign of a paraspinal mass. There is mild sclerosis of the left sacroiliac joint. The right sacroiliac joint is not included. IMPRESSION: 1. There is a 40-50% compression deformity of the superior endplate of L1. The age of this injury is indeterminate but this could be acute or subacute in nature. Recommendations as above. 2. There is no acute bony abnormality noted otherwise. Dictated by: Dictated on workstation # [id number]
--- NOTE | 2017-12-29 11:52 | Diagnostic Imaging Report ---
Thoracic spine at 10:51 a.m. INDICATION: Back pain. AP, lateral and swimmer's views were obtained. FINDINGS: There is a mild compression deformity of the superior endplate of T9. This injury may well be long-standing in nature. There is no acute bony abnormality identified with certainty. There is at least moderate degenerative disease of the thoracic spine. There is no sign of a paraspinal mass. Incidental note is made of a 40-50% compression deformity of L1. The age of this injury is indeterminate but this could be acute. Lumbar spine exam is pending for further study. IMPRESSION: There is no acute bony abnormality of the thoracic spine but there is a 40-50% compression fracture of L1. A lumbar spine exam is pending for further evaluation. Dictated by: Dictated on workstation # [id number]
== END ==
LOC: RAD 10:15
PROVIDERS: ATTEND Family Medicine
DX: S32.010A Wedge compression fracture of first lumbar vertebra, initial encounter for closed fracture (principal); M51.37 Other intervertebral disc degeneration, lumbosacral region; M53.3 Sacrococcygeal disorders, not elsewhere classified; M54.6 Pain in thoracic spine
CPT/HCPCS: 72072; 72100

== ENCOUNTER → 2018-10-06 | Outpatient (CLI) | payer MEDICARE, OTHER | LOC: RAD 14:30 | PROVIDERS: ATTEND Family Medicine | DX: R07.81 Pleurodynia (principal); Z53.8 Procedure and treatment not carried out for other reasons ==

== ENCOUNTER → 2018-10-20 | Outpatient (CLI) | payer MEDICARE, OTHER ==
[~2018-10-20] MED LIST changes: +HOLD METFORMIN - RECEIVED CONTRAST 20 ML VIAL IV SCH; +IOHEXOL 350 MG/ML 100 ML (OMNIPAQUE 350) VIAL IV ONE; +NS 100 ML (IVPB) BAG IV ONE
--- NOTE | 2018-10-20 15:36 | Diagnostic Imaging Report ---
PROCEDURE: CT abdomen and pelvis with contrast. TECHNIQUE: Multiple contiguous axial images were obtained through the abdomen and pelvis after administration of intravenous contrast. Auto Exposure Controls were utilized during the CT exam to meet ALARA standards for radiation dose reduction. INDICATION: Abdominal pain and left lower quadrant pain. COMPARISON: Comparison is made with prior examination of 09/14/2016. FINDINGS: The heart size is normal. The lung bases are clear. There is fatty infiltration of the liver. The gallbladder is unremarkable. There is no biliary ductal dilatation. Spleen is normal. The pancreas and adrenal glands are unremarkable. The kidneys are normal in appearance. There is atherosclerotic calcification of the aorta which is nonaneurysmal. The bowel gas pattern is nonspecific. There is no free air. There is no ascites. No focal inflammatory changes. There is mild diverticular disease without evidence of diverticulitis. There is a small periumbilical hernia containing only omental fat. There are degenerative changes in the spine. There has been previous L1 kyphoplasty. IMPRESSION: Fatty infiltration of the liver. There is unchanged cyst in the posterior aspect of left lobe of the liver. Small periumbilical hernia containing only omental fat. Diverticular disease without evidence of diverticulitis. No other acute abnormality in the abdomen or pelvis. Dictated by: Dictated on workstation # [id number]
== END ==
LOC: RAD 13:39
PROVIDERS: ATTEND Family Medicine
DX: K76.0 Fatty (change of) liver, not elsewhere classified (principal); K76.89 Other specified diseases of liver; K42.9 Umbilical hernia without obstruction or gangrene; K57.90 Diverticulosis of intestine, part unspecified, without perforation or abscess without bleeding
CPT/HCPCS: 74177

== ENCOUNTER → 2018-12-05 | Outpatient (CLI) | payer MEDICARE, OTHER ==
[~2018-12-05] MED LIST changes: -HOLD METFORMIN - RECEIVED CONTRAST 20 ML VIAL IV SCH; -IOHEXOL 350 MG/ML 100 ML (OMNIPAQUE 350) VIAL IV ONE; -NS 100 ML (IVPB) BAG IV ONE
--- NOTE | 2018-12-05 16:51 | Diagnostic Imaging Report ---
INDICATION: Low back pain. Recent fall. COMPARISON: 12/29/2017 FINDINGS: Frontal and lateral radiographic views of the lumbar spine were obtained. Patient is status post interval L1 methylmethacrylate augmentation. No new vertebral body height loss is identified. There is no evidence of acute fracture. Static alignment is maintained. Mild multilevel degenerative changes are noted. Included small bowel loops are nondistended. Note is made of calcified aortic atherosclerosis. IMPRESSION: 1. Interval methylmethacrylate augmentation of L1. 2. No convincing evidence of new acute fracture or dislocation of the lumbar spine. 3. Mild multilevel degenerative changes. Dictated by: Dictated on workstation # [id number]
--- NOTE | 2018-12-05 19:03 | Diagnostic Imaging Report ---
INDICATION: Right-sided rib pain. PA and lateral chest. FINDINGS: Heart size and pulmonary vascularity are normal. Lungs are clear. There are no effusions or pneumothoraces. IMPRESSION: Negative chest. Dictated by: Dictated on workstation # [id number]
== END ==
LOC: RAD 15:19
PROVIDERS: ATTEND Family Medicine
DX: R07.81 Pleurodynia (principal); W19.XXXA Unspecified fall, initial encounter; M47.816 Spondylosis without myelopathy or radiculopathy, lumbar region
CPT/HCPCS: 71046; 72100

== ENCOUNTER 2019-06-07 09:56 | Inpatient (IN) | payer MEDICARE, OTHER ==
[~2019-06-07] VITALS: Ht 160 cm; Wt 72.0 kg
[2019-06-07] MEDS ORDERED: LACTATED RINGERS 1,000 ML IV ONE (10:17)
[2019-06-07] MEDS ORDERED: CATHETER FLUSH 10 ML SYR IV PRN ×2 (10:30→15:00)
[2019-06-07] MEDS ORDERED: HOLD METFORMIN - RECEIVED CONTRAST 20 ML VIAL IV SCH (10:30)
[2019-06-07] MEDS ORDERED: IOHEXOL 350 MG/ML 100 ML (OMNIPAQUE 350) VIAL IV ONE (10:30)
[2019-06-07] MEDS ORDERED: NS 100 ML (IVPB) BAG IV ONE (10:30)
[2019-06-07 11:00] LABS: BASOPHILS % (AUTO) 0 % (0-10); EOSINOPHILS # (AUTO) 0.1 10^3/uL (0.0-0.3); EOSINOPHILS % (AUTO) 1 % (0-10); HEMATOCRIT 42 % (40-54); HEMOGLOBIN 14.1 G/DL (13.3-17.7); LYMPHOCYTES # (AUTO) 1.8 X 10^3 (1.0-4.0); LYMPHOCYTES % (AUTO) 21 % (12-44); MEAN CORPUSCULAR HEMOGLOBIN 28 PG (25-34); MEAN CORPUSCULAR HGB CONC 34 G/DL (32-36); MEAN CORPUSCULAR VOLUME 83 FL (80-99); MEAN PLATELET VOLUME 9.5 FL (7.4-10.4); MONOCYTES # (AUTO) 1.2 X 10^3 (0.0-1.0); MONOCYTES % (AUTO) 14 % (0-12); NEUTROPHILS # (AUTO) 5.4 X 10^3 (1.8-7.8); NEUTROPHILS % (AUTO) 63 % (42-75); PLATELET COUNT 225 10^3/uL (130-400); RED CELL DISTRIBUTION WIDTH 14.7 % (10.0-14.5); WHITE BLOOD COUNT 8.6 10^3/uL (4.3-11.0)
[2019-06-07 11:16] LABS: INR 1.1 (0.8-1.4); PROTHROMBIN TIME PATIENT 14.2 SEC (12.2-14.7)
[2019-06-07 11:17] LABS: ALANINE AMINOTRANSFERASE 19 U/L (0-55); ALBUMIN 3.8 GM/DL (3.2-4.5); ALKALINE PHOSPHATASE 107 U/L (40-136); AMYLASE 59 U/L (25-125); BILIRUBIN,TOTAL 1.6 MG/DL (0.1-1.0); BUN/CREATININE RATIO 11; CALCIUM 8.9 MG/DL (8.5-10.1); CARBON DIOXIDE 21 MMOL/L (21-32); CHLORIDE 97 MMOL/L (98-107); CREATINE KINASE 208 U/L (30-200); GFR ESTIMATED > 60; GLUCOSE 67 MG/DL (70-105); LIPASE 22 U/L (8-78); MAGNESIUM 1.9 MG/DL (1.6-2.4); POTASSIUM 3.8 MMOL/L (3.6-5.0); SODIUM 130 MMOL/L (135-145); TOTAL PROTEIN 7.5 GM/DL (6.4-8.2)
--- NOTE | 2019-06-07 11:23 | ED Fall/Injury ---
General Chief Complaint: Trauma-Non Activation Stated Complaint: FALL Nursing Triage Note: pt presents to ed via ems from home with complaints of head, back, and r knee pain after having a fall at home last evening at 1800. Source: patient (LIMITED HISTORIAN) History of Present Illness Date Seen by Provider: Jun 07, 2019 Time Seen by Provider: 10:00 Initial Comments PT ARRIVES VIA [facility] FROM HOME PT STATES HE FELL YESTERDAY AROUND 1800--NOT WITNESSED PT STATES HE WAS "TURNING LEFT WITH MY WALKER" AND "WALKER FEEL OVER TO THE RIGHT AND SO DID I" STATES HE HIT HIS HEAD AND HIS RIBS ON THE DOOR JAM PT DOES NOT KNOW IF HE HAD LOSS OF CONSCIOUSNESS OR NOT A FRIEND/NEIGHBOR CAME OVER AND HELPED HIM INTO BED LAST NIGHT--IS UNCLEAR HOW LONG HE WAS ON THE FLOOR--, AND PT HAS NOT BEEN OUT OF BED SINCE THEN--COULD NOT GET OUT OF BED THIS MORNING "BECAUSE OF THE PAIN" PT HAS DIFFICULTY LOCALIZING PAIN--BUT DOES C/O PAIN TO HIS HEAD, " ALL ACROSS MY BACK", "ALL DOWN MY RIGHT LEG" AND BILATERAL RIB PAIN ON DIRECT QUESTIONING. NO DIZZINESS NO VISION CHANGES + NAUSEA, NO VOMITING NO PARESTHESIAS OR ACTUAL MOTOR DEFICITS--JUST HURTS TO MOVE PT HAS BEEN INCONTINENT OF URINE AND BEDDING FROM HOME IS SATURATED, BUT PT IS ALSO WEARING INCONTINENCE BRIEFS. PT HAD RIGHT HIP FRACTURE AND REPAIR 12/[address] CAUSEY AT [place]. STATES "I BROKE IT TWICE" Location Injury Occurred: home residence PCP: DR. DEWAYNE QUINN Allergies and Home Medications Allergies Coded Allergies: Penicillins (Unverified Allergy, Unknown, 03/09/11) Home Medications Alprazolam 1 Mg Tablet, 0.5 MG PO HS PRN for SLEEP, (Reported) Aspirin 81 Mg Tablet., 81 MG PO DAILY, (Reported) Atorvastatin Calcium 10 Mg Tablet, 10 MG PO DAILY, (Reported) Escitalopram Oxalate 20 Mg Tablet, 40 MG PO DAILY, (Reported) Folic Acid/Multivit-Min/Lutein 1 Each Tab.chew, 1 EACH PO DAILY, (Reported) Ibuprofen 200 Mg Tablet, 600 MG PO DAILY PRN, (Reported) NEEDED FOR HEADACHE Levothyroxine Sodium 100 Mcg Tablet, 100 MCG PO DAILY, (Reported) Nebivolol HCl 10 Mg Tab, 10 MG PO DAILY, (Reported) Omeprazole 40 Mg Capsule.dr, 40 MG PO DAILY, (Reported) Review of Systems Review of Systems Constitutional: no symptoms reported Eyes: No Symptoms Reported Ears, Nose, Mouth, Throat: no symptoms reported Respiratory: No cough, No short of breath Cardiovascular: see HPI, chest pain Gastrointestinal: No abdominal pain; nausea Genitourinary: see HPI, incontinence Musculoskeletal: see HPI, back pain, other ("HURTS ALL OVER" ) Skin: no symptoms reported Psychiatric/Neurological: See HPI, Headache; Denies Numbness, Denies Paresthesia, Denies Weakness Past Gyicbno-Akivxt-Prlsla Hx Past Med/Social Hx: Reviewed and Corrections made Patient Social History Alcohol Use: Occasionally Uses (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, NOW "OCCASIONALLY" DRINKS) Recreational Drug Use: No Smoking Status: Former Smoker (> 2 PPD, AND CHEWING TOBACCO) Type Used: Cigarettes, Smokeless Tobacco Former Smoker, Quit: Jun 16, 2004 Recent Foreign Travel: No Contact w/Someone Who Travel: No Recent Infectious Disease Expo: No Recent Hopitalizations: No Physical Abuse: No Sexual Abuse: No Mistreated: No Fear: No Immunizations Up To Date Date of Pneumonia Vaccine: May 26, 2015 Date of Influenza Vaccine: Jan 07, 2011 Past Medical History Surgeries: Yes (SEE BELOW) Cardiac, Coronary Stent, Orthopedic, Thyroidectomy Respiratory: Yes COPD Cardiac: Yes (STENT TO LAD 2010--STENT PATENT ON CATH 04/2017) Coronary Artery Disease, High Cholesterol, Hypertension Neurological: No Reproductive Disorders: No Genitourinary: Yes (INCONTINENCE) Gastrointestinal: Yes (GASTRITIS NOTED ON EGD) Diverticulosis, Hemorrhoids, Irritable Bowel Musculoskeletal: Yes (RIGHT HIP/FEMUR FRACTURE/ORIF; L1 KYPHOPLASTY; POOR AMBULATION/USES WALKER) Arthritis, Chronic Back Pain, Fractures Endocrine: Yes (RIGHT THYROIDECTOMY FOR BENIGN GOITER) Hypothyroidsim HEENT: No Cancer: No Psychosocial: Yes Anxiety, Depression Integumentary: Yes (REMOVAL OF SKIN LESIONS) Blood Disorders: No Family Medical History PSH: -CARDIAC CATHS--STENT TO LAD IN 2010. LAST CATH 04/2017--PATENT STENT, NO INTERVENTION. -EGD/COLONOSCOPY 2009--GASTRITIS, DIVERTICULOSIS, HEMORRHOIDS, IBS -RIGHT HIP/FEMUR FX/ORIF -L1 KYPHOPLASTY -RIGHT THYROIDECTOMY FOR BENIGN GOITER -REMOVAL OF SKIN LESIONS Physical Exam Vital Signs Vital Signs - First Documented 3/11/20 10:11 Temp 37.1 Pulse 70 Resp 18 B/P (MAP) 153/84 (107) Pulse Ox 91 Capillary Refill : Less Than 3 Seconds Height, Weight, BMI Height: 5'6.00" Weight: 176lbs. 0.0oz. 79.822245it; 25.00 BMI Method: General Appearance: WD/WN, no apparent distress, other (REEKS OF OLD URINE) HEENT: PERRL/EOMI Neck: tender lateral, tender midline Cardiovascular: normal peripheral pulses, regular rate, rhythm, no murmur Respiratory: normal breath sounds, no respiratory distress, no accessory muscle use, other (DIFFUSE CHEST TENDERNESS--RIGHT > LEFT, NO CREPITANCE, NO DEFORMITY OR SUB Q AIR) Gastrointestinal: normal bowel sounds, non tender, soft Back: other (DIFFUSE TENDERNESS TO BACK) Extremities: no pedal edema, normal capillary refill, other (DIFFUSE TENDERNESS TO RIGHT HIP AND ENTIRE LEG, INCLUDING FOOT) Neurologic/Psychiatric: truck jumper II-XII nml as tested, no motor/sensory deficits, alert, normal mood/affect, oriented x 3 Skin: normal color, warm/dry, other (NO EXTERNAL EVIDENCE OF TRAUMA) [place] Coma Score Best Eye Response: (4) Open Spontaneously Best Verbal Response: (5) Oriented Best Motor Response: (6) Obeys Commands Megha Total: 15 Progress/Results/Core Measures Results/Orders Lab Results Laboratory Tests Test 06/07/19 10:36 06/07/19 11:38 Range/Units White Blood Count 8.6 4.3-11.0 10^3/uL Red Blood Count 5.06 4.35-5.85 10^6/uL Hemoglobin 14.1 13.3-17.7 G/DL Hematocrit 42 40-54 % Mean Corpuscular Volume 83 80-99 FL Mean Corpuscular Hemoglobin 28 25-34 PG Mean Corpuscular Hemoglobin Concent 34 32-36 G/DL Red Cell Distribution Width 14.7 H 10.0-14.5 % Platelet Count 225 130-400 10^3/uL Mean Platelet Volume 9.5 7.4-10.4 FL Neutrophils (%) (Auto) 63 42-75 % Lymphocytes (%) (Auto) 21 12-44 % Monocytes (%) (Auto) 14 H 0-12 % Eosinophils (%) (Auto) 1 0-10 % Basophils (%) (Auto) 0 0-10 % Neutrophils # (Auto) 5.4 1.8-7.8 X 10^3 Lymphocytes # (Auto) 1.8 1.0-4.0 X 10^3 Monocytes # (Auto) 1.2 H 0.0-1.0 X 10^3 Eosinophils # (Auto) 0.1 0.0-0.3 10^3/uL Basophils # (Auto) 0.0 0.0-0.1 10^3/uL Prothrombin Time 14.2 12.2-14.7 SEC INR Comment 1.1 0.8-1.4 Activated Partial Thromboplast Time 29 24-35 SEC Sodium Level 130 L 135-145 MMOL/L Potassium Level 3.8 3.6-5.0 MMOL/L Chloride Level 97 L 98-107 MMOL/L Carbon Dioxide Level 21 21-32 MMOL/L Anion Gap 12 5-14 MMOL/L Blood Urea Nitrogen 8 7-18 MG/DL Creatinine 0.70 0.60-1.30 MG/DL Estimat Glomerular Filtration Rate > 60 BUN/Creatinine Ratio 11 Glucose Level 67 L 70-105 MG/DL Calcium Level 8.9 8.5-10.1 MG/DL Corrected Calcium 9.1 8.5-10.1 MG/DL Magnesium Level 1.9 1.6-2.4 MG/DL Total Bilirubin 1.6 H 0.1-1.0 MG/DL Aspartate Amino Transf (AST/SGOT) 39 H 5-34 U/L Alanine Aminotransferase (ALT/SGPT) 19 0-55 U/L Alkaline Phosphatase 107 40-136 U/L Total Creatine Kinase 208 H 30-200 U/L Creatine Kinase MB 2.0 <6.6 NG/ML Myoglobin 74.3 10.0-92.0 NG/ML Total Protein 7.5 6.4-8.2 GM/DL Albumin 3.8 3.2-4.5 GM/DL Amylase Level 59 25-125 U/L Lipase 22 8-78 U/L Urine Color YELLOW Urine Clarity CLEAR Urine pH 6.0 5-9 Urine Specific [place] 1.020 1.016-1.022 Urine Protein NEGATIVE NEGATIVE Urine Glucose (UA) NEGATIVE NEGATIVE Urine Ketones TRACE H NEGATIVE Urine Nitrite NEGATIVE NEGATIVE Urine Bilirubin NEGATIVE NEGATIVE Urine Urobilinogen 1.0 < = 1.0 MG/DL Urine Leukocyte Esterase NEGATIVE NEGATIVE Urine RBC (Auto) TRACE-I NEGATIVE Urine RBC RARE /HPF Urine WBC NONE /HPF Urine Crystals NONE /LPF Urine Bacteria NEGATIVE /HPF Urine Casts NONE /LPF Urine Mucus NEGATIVE /LPF Urine Culture Indicated NO My Orders Orders - TATIANA SCHULTZ DO Ct Head/Cervical Spine Wo (06/07/19 10:04) Ct Thoracic/Lumbar Spine Wo (06/07/19 10:17) Chest 1 View, Ap/Pa Only (06/07/19 10:17) Femur, Right, 2 Views (06/07/19 10:17) Tibia/Fibula, Right, 2 Views (06/07/19 10:17) Knee, Right, 3 Views (06/07/19 10:17) Foot, Right, 3 View (06/07/19 10:17) Ankle, Right, 3 Views (06/07/19 10:17) Pelvis With Right Hip 2-3views (06/07/19 10:17) Amylase (06/07/19 10:17) Cbc With Automated Diff (06/07/19 10:17) Comprehensive Metabolic Panel (06/07/19 10:17) Creatine Kinase (06/07/19 10:17) Creatine Kinase Mb (06/07/19 10:17) Lipase (06/07/19 10:17) Magnesium (06/07/19 10:17) Protime With Inr (06/07/19 10:17) Partial Thromboplastin Time (06/07/19 10:17) Ua Culture If Indicated (06/07/19 10:17) Myoglobin Serum (06/07/19 10:17) Ed Iv/Invasive Line Start (06/07/19 10:17) Lactated Ringers (Lr 1000 Ml Iv Solution (06/07/19 10:17) Ct Chest/Abdomen/Pelvis W (06/07/19 10:17) Iohexol Injection (Omnipaque 350 Mg/Ml 1 (06/07/19 10:30) Received Contrast (Hold Metformin- Contr (06/07/19 10:30) Sodium Chloride Flush (Catheter Flush Sy (06/07/19 10:30) Ns (Ivpb) (Sodium Chloride 0.9% Ivpb Bag (06/07/19 10:30) Fentanyl Injection (Sublimaze Injection (06/07/19 12:13) Fentanyl Injection (Sublimaze Injection (06/07/19 13:15) Medications Given in ED Current Medications Medications Dose Ordered Sig/Malcolm Route Start Time Stop Time Status Last Admin Dose Admin Fentanyl Citrate 50 mcg ONCE ONCE IVP 06/07/19 13:15 06/07/19 13:16 DC 06/07/19 13:09 50 MCG Iohexol 100 ml ONCE ONCE IV 06/07/19 10:30 06/07/19 10:31 DC 06/07/19 12:21 100 ML Lactated Ringer's 1,000 ml @ 0 mls/hr Q0M ONCE IV 06/07/19 10:17 06/07/19 10:20 DC 06/07/19 10:40 0 MLS/HR Sodium Chloride 100 ml ONCE ONCE IV 06/07/19 10:30 06/07/19 10:31 DC 06/07/19 12:21 80 ML Vital Signs/I&O 06/07/19 06/07/19 10:11 11:04 Temp 37.1 37.1 Pulse 70 70 Resp 18 18 B/P (MAP) 153/84 (107) 153/84 (107) Pulse Ox 91 91 2 Blood Pressure Mean: 107 Progress Progress Note : Progress Note O2 SATS 90-92% ON ROOM AIR--UP TO MID 90'S ON O2 AT 2L/NC--DOES NOT HAVE HOME O2 NO DETERIORATION IN PT'S CONDITION DURING ER STAY Departure Departure-Patient Inst. Referrals: DEWAYNE QUINN MD (PCP/Family) Primary Care Physician TATIANA SCHULTZ DO Jun 07, 2019 11:23
[2019-06-07 11:47] LABS: BILIRUBIN,URINE NEGATIVE (NEGATIVE); CLARITY,URINE CLEAR; COLOR,URINE YELLOW; GLUCOSE, URINE (UA) NEGATIVE (NEGATIVE); KETONES,URINE TRACE (NEGATIVE); LEUKOCYTE ESTERASE ,URINE NEGATIVE (NEGATIVE); NITRITE,URINE NEGATIVE (NEGATIVE); PROTEIN,URINE NEGATIVE (NEGATIVE)
[2019-06-07 11:56] LABS: BACTERIA,URINE NEGATIVE /HPF; RBC,URINE RARE /HPF
[2019-06-07] MEDS ORDERED: fentaNYL INJECTION 100 MCG/2 ML AMP IVP STA (12:13)
--- NOTE | 2019-06-07 12:36 | Diagnostic Imaging Report ---
PROCEDURE: CT thoracic and lumbar spine without contrast. TECHNIQUE: Multiple contiguous axial images were obtained through the thoracic and lumbar spine without the use of intravenous contrast. Sagittal and coronal reformations were then performed. All CT scans use one or more of the following dose optimizing techniques: automated exposure control, MA and/or KvP adjustment based on a patient size and exam type, or iterative reconstruction. INDICATION: Fall with mid back pain. FINDINGS: CT THORACIC SPINE: There is normal thoracic kyphotic curvature. The thoracic vertebral body heights appear to be maintained. No acute fracture is seen. The bony canal appears to be patent. The patient does have fractures involving the right posterior 5th and 6th ribs. There is some pleural fluid on the right which may represent a hemothorax. The paraspinous tissues are unremarkable. IMPRESSION: 1. Right posterior 5th and 6th rib fractures with a probable small right hemothorax. 2. No thoracic spinal fracture is seen. CT LUMBAR SPINE: The curvature of the lumbar spine is normal. There are kyphoplasty changes at the L1 vertebral body. The remaining lumbar vertebrae show normal stature. No acute vertebral body fracture is seen. The paraspinous tissues are unremarkable. IMPRESSION: Treated compression fracture at L1. No acute lumbar fracture is detected. Dictated by: Dictated on workstation # [id number]
--- NOTE | 2019-06-07 12:46 | Diagnostic Imaging Report ---
PROCEDURE: CT chest, abdomen, and pelvis with contrast. TECHNIQUE: Multiple contiguous axial images were obtained through the chest, abdomen, and pelvis after the administration of intravenous contrast. Auto Exposure Controls were utilized during the CT exam to meet ALARA standards for radiation dose reduction. INDICATION: Fall with difficulty breathing. Patient also complains of rib pain. COMPARISON: Correlation is made with prior CT chest from 05/31/[address] abdomen and pelvis from 10/20/2018. FINDINGS: CT chest: No definite mediastinal hematoma or great vessel injury is identified. No pericardial fluid is identified. There appears to be some trace right pleural fluid. No pneumothorax is identified. There is some parenchymal consolidation in right lower lobe. This could represent a pulmonary contusion or atelectasis. There is a fracture involving the right posterior fifth and sixth ribs. There is also fracture of the right posterior 10th rib which appears to be partially healed. Left-sided ribs are intact. Sternum is unremarkable. IMPRESSION: Right-sided 5th, 6th and 10th rib fractures, as described. Trace right pleural fluid is noted which could represent a small hemothorax. There is also some associated consolidation in the right lower lobe consistent with atelectasis versus pulmonary contusion. No mediastinal hematoma or great vessel injury is detected. CT abdomen and pelvis: Small low densities in the liver are noted, suggestive of cysts. There is some generalized low density within the liver consistent with hepatic steatosis. No focal liver laceration is identified. The gallbladder is unremarkable. Pancreas is unremarkable. No splenic laceration is seen. No adrenal hematoma or renal injury is identified. Aorta is unremarkable. There is no retroperitoneal hemorrhage. Bowel loops are normal caliber. There is no free fluid to suggest hemoperitoneum. The bladder is unremarkable. The prostate is enlarged. There are postsurgical changes to the right hip. No acute pelvic fracture is detected. IMPRESSION: 1. Hepatic steatosis and hepatic cysts. 2. No evidence of abdominal or pelvic visceral injury. 3. Prostatomegaly. Dictated by: Dictated on workstation # [id number]
--- NOTE | 2019-06-07 12:46 | Diagnostic Imaging Report ---
PROCEDURE: CT head and CT cervical spine without contrast. TECHNIQUE: Multiple contiguous axial images were obtained through the brain and cervical spine without the use of intravenous contrast. Sagittal and coronal reformations through the cervical spine were then performed. Auto Exposure Controls were utilized during the CT exam to meet ALARA standards for radiation dose reduction. INDICATION: Fall and headache. Correlation is made with prior head CT from 08/18/2013. CT HEAD: The ventricles and sulci are appropriate for the patient's age. No sulcal effacement or midline shift is identified. No acute intra-axial or extra-axial hemorrhage is detected. Cisterns are patent. Visualized paranasal sinuses are clear. IMPRESSION: No acute intracranial process is detected. CT CERVICAL SPINE: Curvature and alignment of the cervical spine is normal. There is some degenerative disc disease C5-C6 level with disc space narrowing noted. No fractures are identified. The odontoid is intact. Prevertebral tissues are within normal limits. IMPRESSION: No acute bony abnormality is detected. Dictated by: Dictated on workstation # [id number]
--- NOTE | 2019-06-07 13:08 | Diagnostic Imaging Report ---
INDICATION: Fall. TIME OF EXAMINATION: 12:40 PM. TECHNIQUE: Three views of the right knee were obtained. FINDINGS: There is generalized demineralization. The alignment is normal. The joint spaces are well maintained. The articular surfaces are smooth. No fracture, dislocation, or effusion is seen. IMPRESSION: No acute bony abnormality is detected. Dictated by: Dictated on workstation # [id number]
--- NOTE | 2019-06-07 13:13 | Diagnostic Imaging Report ---
INDICATION: Fall with right leg pain. TIME OF EXAMINATION: 12:39 PM. FINDINGS: An intramedullary carlie and compression screw transfix the proximal right femur. The distal femur appears to be intact. The proximal femur does show a medially displaced fracture fragment involving the lesser trochanter. There appears to be an osseous density cephalad to the femoral neck, also likely an old fracture fragment. The rami appear to be intact. IMPRESSION: Post surgical and post traumatic changes in the proximal right femur. The mid and distal femur appear to be intact. Dictated by: Dictated on workstation # [id number]
--- NOTE | 2019-06-07 13:14 | Diagnostic Imaging Report ---
INDICATION: Fall with right ankle pain. TIME OF EXAMINATION: 12:42 PM. TECHNIQUE: Three views of the right ankle were obtained. FINDINGS: The ankle alignment is normal. The ankle mortise is well-maintained. The talar dome is smooth. No fracture or dislocation is seen. There are vascular calcifications. IMPRESSION: No acute bony abnormality is detected. Dictated by: Dictated on workstation # [id number]
[2019-06-07] MEDS ORDERED: fentaNYL INJECTION 100 MCG/2 ML AMP IVP ONE ×2 (13:15→14:30)
--- NOTE | 2019-06-07 13:17 | Diagnostic Imaging Report ---
INDICATION: Fall, pain. COMPARISON: CT from the same date and from October 20, 2018. TECHNIQUE: Three radiographs of the pelvis and right hip are obtained dated June 07, 2019. FINDINGS: Contrast is identified within the urinary bladder related to recent CT examination. Gamma nail is identified transfixing a proximal right femoral fracture. The lesser trochanter is medially displaced. No evidence of hardware complication. No acute fracture or dislocation. No destructive osseous process. The sacroiliac joints are intact. Mild degenerative changes within the partially visualized lower lumbar spine. The right femoral head maintains its normal shape and contour. IMPRESSION: No acute osseous abnormality. Postsurgical changes associated with the right femur without evidence of hardware complication. Dictated by: Dictated on workstation # [id number]
--- NOTE | 2019-06-07 13:21 | Diagnostic Imaging Report ---
EXAMINATION: Right foot at 12:43 p.m. INDICATION: Fell, foot pain. FINDINGS: Three views were obtained. There are no prior studies available for comparison. There is no fracture, dislocation, or acute bony abnormality evident. The Lisfranc joint seems well maintained. There is a minimal calcaneal spur. The soft tissues are unremarkable. IMPRESSION: There is no evidence for an acute bony abnormality. Dictated by: Dictated on workstation # [id number]
--- NOTE | 2019-06-07 13:22 | Diagnostic Imaging Report ---
INDICATION: Fall, pain. COMPARISON: 12/05/[address] of the chest dated 06/07/2019. FINDINGS: The cardiac silhouette is within normal limits in size. No significant pulmonary vascular congestion. Linear right perihilar opacities are present. The left lung is clear. Tiny right pleural effusion. No significant left pleural effusion. No pneumothorax. Recent posterior right 6th rib fracture, mildly displaced. Vertebroplasty changes within the upper lumbar spine. IMPRESSION: Mildly displaced recent appearing posterior right 6th rib fracture. Tiny right pleural effusion. No pneumothorax. Right perihilar atelectasis and/or contusion. Recommend radiographic followup to ensure resolution. Dictated by: Dictated on workstation # [id number]
--- NOTE | 2019-06-07 13:24 | Diagnostic Imaging Report ---
EXAMINATION: Right tibia and fibula. INDICATION: Pain. FINDINGS: AP and lateral views of the tibia and fibula were obtained. The knee joint was not included on this exam. In reviewing the right knee exam performed in conjunction with this study, there was no sign of an acute bony abnormality. There is no fracture or acute bony abnormality of the remainder of the tibia or fibula. The ankle joint is fairly well maintained. The soft tissues are unremarkable. IMPRESSION: The tibia and fibula, where visualized, are unremarkable for an acute abnormality. Dictated by: Dictated on workstation # [id number]
[2019-06-07 13:59] LABS: SALICYLATE < 5.0 MG/DL (5.0-20.0)
[2019-06-07 14:02] LABS: ACETAMINOPHEN < 10 UG/ML (10-30)
[2019-06-07 14:07] LABS: AMPHETAMINE SCREEN, URINE NEGATIVE (NEGATIVE); BARBITURATE SCREEN URINE NEGATIVE (NEGATIVE); CANNABINOID SCREEN, URINE NEGATIVE (NEGATIVE); COCAINE SCREEN URINE NEGATIVE (NEGATIVE); METHADONE STAT NEGATIVE (NEGATIVE); METHAMPHETAMINE SCREEN URINE S NEGATIVE (NEGATIVE); OPIATE SCREEN URINE POSITIVE (NEGATIVE); TRICYCLIC ANTIDEPRESSANTS SCRE NEGATIVE (NEGATIVE)
[2019-06-07 14:08] LABS: BENZODIAZEPINES SCREEN URINE POSITIVE (NEGATIVE); OXYCODONE STAT NEGATIVE (NEGATIVE); PROPOXYPHENE STAT NEGATIVE (NEGATIVE)
[2019-06-07] MEDS ORDERED: 1/2 NS IV SOLUTION 1,000 ML IV PRN (14:47)
[2019-06-07] MEDS ORDERED: SENNA W/DOCUSATE (SENOKOT S) TABLET PO PRN (15:00)
[2019-06-07] MEDS ORDERED: ONDANSETRON 4 MG (ZOFRAN) ORAL DISSOLVE TAB SL PRN (15:00)
[2019-06-07] MEDS ORDERED: LORazepam INJ 2 MG/ML (ATIVAN) VIAL IM/IV PRN (15:00)
[2019-06-07] MEDS ORDERED: LORazepam INJ 2 MG/ML (ATIVAN) VIAL IV PRN (15:00)
[2019-06-07] MEDS ORDERED: LORazepam 1 MG (ATIVAN) TAB PO PRN (15:00)
[2019-06-07] MEDS ORDERED: ONDANSETRON 4 MG/2 ML (SDV) Z0FRAN IV PRN (15:00)
[2019-06-07] MEDS ORDERED: ANTACID SUSP 30 ML UDC (MYLANTA) PO PRN (15:00)
[2019-06-07] MEDS ORDERED: D5 1/2 NS 1000 ML IV SOLUTION 1,000 ML IV PRN (15:00)
[2019-06-07] MEDS: D5 1/2 NS W/KCL 20 MEQ/L 1,000 ML IV SCH (15:00)
--- NOTE | 2019-06-07 15:45 | History & Physical-Surgical ---
History of Present Illness History of Present Illness Reason for visit/HPI CC: Fall/Trauma Zackary Aguayo is a 74 y/o male who presents to [facility] today for trauma. Pt states yesterday he was using his walker and fell at 1800. PT states he fell on his back and hit his head. He states he now has constant sharp pain in his back/rib area. Pt states the pain is sharp and constant, a 10/10 on the pain scale. The pain does not radiate anywhere other than his back. Pt states the pain gets worse on movement and coughing. Pt is currently on Fentanyl which he states helps the pain. ROS: Pt denies fever, SOB, chest pain, nausea, vomiting, diarrhea, chills, headache Date of Admission Jun 07, 2019 at 13:30 Date Seen by a Provider: Jun 07, 2019 Time Seen by a Provider: 15:00 I consulted on this patient on 06/07/19 15:39 Attending Physician Dudley Foster DO Admitting Physician Alejandro Hawk MD Consult Allergies and Home Medications Allergies Coded Allergies: Penicillins (Unverified Allergy, Unknown, 03/09/11) Sulfa (Sulfonamide Antibiotics) (Verified Allergy, Unknown, 06/07/19) Home Medications Alprazolam 1 Mg Tablet, 0.5 MG PO HS PRN for SLEEP, (Reported) Aspirin 81 Mg Tablet.dr, 81 MG PO DAILY, (Reported) Atorvastatin Calcium 10 Mg Tablet, 10 MG PO DAILY, (Reported) Escitalopram Oxalate 20 Mg Tablet, 40 MG PO DAILY, (Reported) Folic Acid/Multivit-Min/Lutein 1 Each Tab.chew, 1 EACH PO DAILY, (Reported) Ibuprofen 200 Mg Tablet, 600 MG PO DAILY PRN, (Reported) NEEDED FOR HEADACHE Levothyroxine Sodium 100 Mcg Tablet, 100 MCG PO DAILY, (Reported) Nebivolol HCl 10 Mg Tab, 10 MG PO DAILY, (Reported) Omeprazole 40 Mg Capsule.dr, 40 MG PO DAILY, (Reported) Past Wpthomp-Obkcpl-Lfgefa Hx Patient Social History Alcohol Use: Occasionally Uses (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, NOW "OCCASIONALLY" DRINKS) Recreational Drug Use: No Smoking Status: Former Smoker (> 2 PPD, AND CHEWING TOBACCO) Former Smoker, Quit: Jun 16, 2004 Type Used: Cigarettes, Smokeless Tobacco Recent Foreign Travel: No Contact w/Someone Who Travel: No Recent Infectious Disease Expo: No Recent Hopitalizations: No Immunizations Up To Date Date of Pneumonia Vaccine: May 26, 2015 Date of Influenza Vaccine: Jan 07, 2011 Surgeries History of Surgeries: Yes (SEE BELOW) Surgeries: Cardiac, Coronary Stent, Orthopedic, Thyroidectomy Respiratory History of Respiratory Disorde: Yes Respiratory Disorders: COPD Cardiovascular History of Cardiac Disorders: Yes (STENT TO LAD 2010--STENT PATENT ON CATH 04/2017) Cardiac Disorders: Coronary Artery Disease, High Cholesterol, Hypertension Neurological History of Neurological Disord: No Reproductive System Hx Reproductive Disorders: No Genitourinary History of Genitourinary Disor: Yes (INCONTINENCE) Gastrointestinal History of Gastrointestinal Di: Yes (GASTRITIS NOTED ON EGD) Gastrointestinal Disorders: Diverticulosis, Hemorrhoids, Irritable Bowel Musculoskeletal History of Musculoskeletal Dis: Yes (RIGHT HIP/FEMUR FRACTURE/ORIF; L1 KYPHOPLASTY; POOR AMBULATION/USES WALKER) Musculoskeletal Disorders: Arthritis, Chronic Back Pain, Fractures Endocrine History of Endocrine Disorders: Yes (RIGHT THYROIDECTOMY FOR BENIGN GOITER) Endocrine Disorders: Hypothyroidsim HEENT History of HEENT Disorders: No Cancer History of Cancer: No Psychosocial History of Psychiatric Problem: Yes Behavioral Health Disorders: Anxiety, Depression Integumentary History of Skin or Integumenta: Yes (REMOVAL OF SKIN LESIONS) Blood Transfusions History of Blood Disorders: No Review of Systems Constitutional: No chills, No dizziness, No fever EENTM: No eye pain, No vision loss Respiratory: cough; No short of breath Cardiovascular: No chest pain, No edema Gastrointestinal: No abdominal pain, No constipation, No diarrhea; heartburn Genitourinary: No dysuria, No frequency Musculoskeletal: back pain (back and rib pain- right sided); No muscle pain Skin: No lumps, No rash Psychiatric/Neurological: Denies Anxiety, Denies Depressed Physical Exam Vital Signs Vital Signs - First Documented 06/07/19 06/07/19 10:11 10:20 Temp 37.1 Pulse 70 Resp 18 B/P (MAP) 153/84 (107) Pulse Ox 91 O2 Delivery Nasal Cannula O2 Flow Rate 2.00 Capillary Refill : Less Than 3 Seconds Height, Weight, BMI Height: 5'6.00" Weight: 176lbs. 0.0oz. [id number]; 25.00 BMI Method: General Appearance: No Apparent Distress Eyes: Bilateral Eye Normal Inspection, Bilateral Eye PERRL, Bilateral Eye EOMI HEENT: PERRL/EOMI, TMs Normal, Normal ENT Inspection Neck: Full Range of Motion, Supple Respiratory: Chest Non Tender, Lungs Clear, Normal Breath Sounds, No Respiratory Distress; No Crackles Cardiovascular: Regular Rate, Rhythm, No Edema, No Gallop, No JVD Gastrointestinal: Normal Bowel Sounds, No Pulsatile Mass Extremity: Normal Capillary Refill, Normal Inspection, No Calf Tenderness Neurologic/Psychiatric: Alert, Oriented x3, No Motor/Sensory Deficits Skin: Normal Color, Warm/Dry Data Review Labs Laboratory Tests 06/07/19 10:36: White Blood Count 8.6, Red Blood Count 5.06, Hemoglobin 14.1, Hematocrit 42, Mean Corpuscular Volume 83, Mean Corpuscular Hemoglobin 28, Mean Corpuscular Hemoglobin Concent 34, Red Cell Distribution Width 14.7H, Platelet Count 225, Mean Platelet Volume 9.5, Neutrophils (%) (Auto) 63, Lymphocytes (%) (Auto) 21, Monocytes (%) (Auto) 14H, Eosinophils (%) (Auto) 1, Basophils (%) (Auto) 0, Neutrophils # (Auto) 5.4, Lymphocytes # (Auto) 1.8, Monocytes # (Auto) 1.2H, Eosinophils # (Auto) 0.1, Basophils # (Auto) 0.0, Prothrombin Time 14.2, INR Comment 1.1, Activated Partial Thromboplast Time 29, Sodium Level 130L, Potassium Level 3.8, Chloride Level 97L, Carbon Dioxide Level 21, Anion Gap 12, Blood Urea Nitrogen 8, Creatinine 0.70, Estimat Glomerular Filtration Rate > 60, BUN/Creatinine Ratio 11, Glucose Level 67L, Calcium Level 8.9, Corrected Calcium 9.1, Magnesium Level 1.9, Total Bilirubin 1.6H, Aspartate Amino Transf (AST/SGOT) 39H, Alanine Aminotransferase (ALT/SGPT) 19, Alkaline Phosphatase 107, Total Creatine Kinase 208H, Creatine Kinase MB 2.0, Myoglobin 74.3, Total Protein 7.5, Albumin 3.8, Amylase Level 59, Lipase 22, Salicylates Level < 5.0L, Acetaminophen Level < 10L, Serum Alcohol 36H 06/07/19 11:38: Urine Color YELLOW, Urine Clarity CLEAR, Urine pH 6.0, Urine Specific [place] 1.020, Urine Protein NEGATIVE, Urine Glucose (UA) NEGATIVE, Urine Ketones TRACEH , Urine Nitrite NEGATIVE, Urine Bilirubin NEGATIVE, Urine Urobilinogen 1.0, Urine Leukocyte Esterase NEGATIVE, Urine RBC (Auto) TRACE-I, Urine RBC RARE, Urine WBC NONE, Urine Crystals NONE, Urine Bacteria NEGATIVE, Urine Casts NONE, Urine Mucus NEGATIVE, Urine Culture Indicated NO, Urine Opiates Screen POSITIVEH , Urine Oxycodone Screen NEGATIVE, Urine Methadone Screen NEGATIVE, Urine Propoxyphene Screen NEGATIVE, Urine Barbiturates Screen NEGATIVE, Ur Tricyclic Antidepressants Screen NEGATIVE, Urine Phencyclidine Screen NEGATIVE, Urine Amphetamines Screen NEGATIVE, Urine Methamphetamines Screen NEGATIVE, Urine Benzodiazepines Screen POSITIVEH, Urine Cocaine Screen NEGATIVE, Urine Cannabinoids Screen NEGATIVE Assessment/Plan Assessment/Plan Assessment/Plan Fall/ Trauma Right 5th 6th 10th Rib Fracture Small Hemothorax Alcohol Detox SUNIL MARCIAL MEDICAL STUDENT Jun 07, 2019 15:45
[2019-06-07 16:00] VITALS: BP 159/85
--- NOTE | 2019-06-07 16:12 | Consultation - Surgery ---
SUNIL MARCIAL MEDICAL STUDENT 06/07/19 1612: History of Present Illness History of Present Illness Patient Consulted On(chapo/time) 06/07/19 16:09 Date Seen by Provider: Jun 07, 2019 Time Seen by Provider: 15:30 History of Present Illness CC: Fall/Trauma Zackary Aguayo is a 74 y/o male who presents to [facility] today for trauma. Pt states yesterday he was using his walker and fell at 1800. PT states he fell on his back and hit his head. He states he now has constant sharp pain in his back/rib area. Pt states the pain is sharp and constant, a 10/10 on the pain scale. The pain does not radiate anywhere other than his back. Pt states the pain gets worse on movement and coughing. Pt is currently on Fentanyl which he states helps the pain. ROS: Pt denies fever, SOB, chest pain, nausea, vomiting, diarrhea, chills, headache Allergies and Home Medications Allergies Coded Allergies: Penicillins (Unverified Allergy, Unknown, 03/09/11) Sulfa (Sulfonamide Antibiotics) (Verified Allergy, Unknown, 06/07/19) Home Medications Alprazolam 1 Mg Tablet, 0.5 MG PO HS PRN for SLEEP, (Reported) Aspirin 81 Mg Tablet.dr, 81 MG PO DAILY, (Reported) Atorvastatin Calcium 10 Mg Tablet, 10 MG PO DAILY, (Reported) Escitalopram Oxalate 20 Mg Tablet, 40 MG PO DAILY, (Reported) Folic Acid/Multivit-Min/Lutein 1 Each Tab.chew, 1 EACH PO DAILY, (Reported) Ibuprofen 200 Mg Tablet, 600 MG PO DAILY PRN, (Reported) NEEDED FOR HEADACHE Levothyroxine Sodium 100 Mcg Tablet, 100 MCG PO DAILY, (Reported) Nebivolol HCl 10 Mg Tab, 10 MG PO DAILY, (Reported) Omeprazole 40 Mg Capsule.dr, 40 MG PO DAILY, (Reported) Past Quqvxpo-Rcqzjd-Edsvpp Hx Patient Social History Alcohol Use: Occasionally Uses (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, NOW "OCCASIONALLY" DRINKS) Recreational Drug Use: No Smoking Status: Former Smoker (> 2 PPD, AND CHEWING TOBACCO) Former Smoker, Quit: Jun 16, 2004 Type Used: Cigarettes, Smokeless Tobacco Recent Foreign Travel: No Contact w/Someone Who Travel: No Recent Infectious Disease Expo: No Recent Hopitalizations: No Immunizations Up To Date Date of Pneumonia Vaccine: May 26, 2015 Date of Influenza Vaccine: Jan 07, 2011 Surgeries History of Surgeries: Yes (SEE BELOW) Surgeries: Cardiac, Coronary Stent, Orthopedic, Thyroidectomy Respiratory History of Respiratory Disorde: Yes Respiratory Disorders: COPD Cardiovascular History of Cardiac Disorders: Yes (STENT TO LAD 2010--STENT PATENT ON CATH 04/2017) Cardiac Disorders: Coronary Artery Disease, High Cholesterol, Hypertension Neurological History of Neurological Disord: No Reproductive System Hx Reproductive Disorders: No Genitourinary History of Genitourinary Disor: Yes (INCONTINENCE) Gastrointestinal History of Gastrointestinal Di: Yes (GASTRITIS NOTED ON EGD) Gastrointestinal Disorders: Diverticulosis, Hemorrhoids, Irritable Bowel Musculoskeletal History of Musculoskeletal Dis: Yes (RIGHT HIP/FEMUR FRACTURE/ORIF; L1 KYPHOPLASTY; POOR AMBULATION/USES WALKER) Musculoskeletal Disorders: Arthritis, Chronic Back Pain, Fractures Endocrine History of Endocrine Disorders: Yes (RIGHT THYROIDECTOMY FOR BENIGN GOITER) Endocrine Disorders: Hypothyroidsim HEENT History of HEENT Disorders: No Cancer History of Cancer: No Psychosocial History of Psychiatric Problem: Yes Behavioral Health Disorders: Anxiety, Depression Integumentary History of Skin or Integumenta: Yes (REMOVAL OF SKIN LESIONS) Blood Transfusions History of Blood Disorders: No Review of Systems-General Constitutional: No chills, No diaphoresis, No dizziness, No fever EENTM: No blurred vision, No vision loss Respiratory: cough; No short of breath Cardiovascular: No chest pain, No palpitations Gastrointestinal: No constipation, No diarrhea Genitourinary: No frequency, No pain Musculoskeletal: back pain; No neck pain Skin: No hx of skin cancer, No rash Psychiatric/Neurological: Denies Headache, Denies Numbness Physical Exam-General Problems Physical Exam Vital Signs Vital Signs - First Documented 06/07/19 06/07/19 10:11 10:20 Temp 37.1 Pulse 70 Resp 18 B/P (MAP) 153/84 (107) Pulse Ox 91 O2 Delivery Nasal Cannula O2 Flow Rate 2.00 Capillary Refill : Less Than 3 Seconds General Appearance: mild distress HEENT: PERRL/EOMI, normal ENT inspection, TMs normal Neck: non-tender, full range of motion Respiratory: chest non-tender, lungs clear, normal breath sounds Cardiovascular: regular rate, rhythm, no edema Gastrointestinal: non tender, soft Back: normal inspection, decreased range of motion Extremities: non-tender, no pedal edema Neurologic/Psychiatric: no motor/sensory deficits, alert, normal mood/affect Skin: normal color, warm/dry Lymphatic: no adenopathy Data Review Labs Laboratory Tests 06/07/19 10:36: White Blood Count 8.6, Red Blood Count 5.06, Hemoglobin 14.1, Hematocrit 42, Mean Corpuscular Volume 83, Mean Corpuscular Hemoglobin 28, Mean Corpuscular Hemoglobin Concent 34, Red Cell Distribution Width 14.7H, Platelet Count 225, Mean Platelet Volume 9.5, Neutrophils (%) (Auto) 63, Lymphocytes (%) (Auto) 21, Monocytes (%) (Auto) 14H, Eosinophils (%) (Auto) 1, Basophils (%) (Auto) 0, Neutrophils # (Auto) 5.4, Lymphocytes # (Auto) 1.8, Monocytes # (Auto) 1.2H, Eosinophils # (Auto) 0.1, Basophils # (Auto) 0.0, Prothrombin Time 14.2, INR Comment 1.1, Activated Partial Thromboplast Time 29, Sodium Level 130L, Potassium Level 3.8, Chloride Level 97L, Carbon Dioxide Level 21, Anion Gap 12, Blood Urea Nitrogen 8, Creatinine 0.70, Estimat Glomerular Filtration Rate > 60, BUN/Creatinine Ratio 11, Glucose Level 67L, Calcium Level 8.9, Corrected Calcium 9.1, Magnesium Level 1.9, Total Bilirubin 1.6H, Aspartate Amino Transf (AST/SGOT) 39H, Alanine Aminotransferase (ALT/SGPT) 19, Alkaline Phosphatase 107, Total Creatine Kinase 208H, Creatine Kinase MB 2.0, Myoglobin 74.3, Total Protein 7.5, Albumin 3.8, Amylase Level 59, Lipase 22, Salicylates Level < 5.0L, Acetaminophen Level < 10L, Serum Alcohol 36H 06/07/19 11:38: Urine Color YELLOW, Urine Clarity CLEAR, Urine pH 6.0, Urine Specific [place] 1.020, Urine Protein NEGATIVE, Urine Glucose (UA) NEGATIVE, Urine Ketones TRACEH , Urine Nitrite NEGATIVE, Urine Bilirubin NEGATIVE, Urine Urobilinogen 1.0, Urine Leukocyte Esterase NEGATIVE, Urine RBC (Auto) TRACE-I, Urine RBC RARE, Urine WBC NONE, Urine Crystals NONE, Urine Bacteria NEGATIVE, Urine Casts NONE, Urine Mucus NEGATIVE, Urine Culture Indicated NO, Urine Opiates Screen POSITIVEH , Urine Oxycodone Screen NEGATIVE, Urine Methadone Screen NEGATIVE, Urine Propoxyphene Screen NEGATIVE, Urine Barbiturates Screen NEGATIVE, Ur Tricyclic Antidepressants Screen NEGATIVE, Urine Phencyclidine Screen NEGATIVE, Urine Amphetamines Screen NEGATIVE, Urine Methamphetamines Screen NEGATIVE, Urine Benzodiazepines Screen POSITIVEH, Urine Cocaine Screen NEGATIVE, Urine Cannabinoids Screen NEGATIVE Assessment/Plan Assessment/Plan Assessment/Plan Fall/ Trauma Right 5th 6th 10th Rib Fracture Small Hemothorax Alcohol Detox Pain management Insensitive Spirometry Alcohol Withdrawal Protocol Diet as tolerated SHANTI FOSTER DO 06/07/19 1810: History of Present Illness History of Present Illness Time Seen by Provider: 15:31 History of Present Illness Pt is technically a trauma, same level fall and full work-up basically showed 3 broken ribs and small hemothorax. Unfortunately pt has no one to help him at home and is being admitted for pain control. His main complaint when I saw him was he wanted to eat. Allergies and Home Medications Allergies Coded Allergies: Penicillins (Unverified Allergy, Unknown, 03/09/11) Sulfa (Sulfonamide Antibiotics) (Verified Allergy, Unknown, 06/07/19) Home Medications Alprazolam 1 Mg Tablet, 0.5 MG PO HS PRN for SLEEP, (Reported) Aspirin 81 Mg Tablet.dr, 81 MG PO DAILY, (Reported) Atorvastatin Calcium 10 Mg Tablet, 10 MG PO DAILY, (Reported) Escitalopram Oxalate 20 Mg Tablet, 40 MG PO DAILY, (Reported) Folic Acid/Multivit-Min/Lutein 1 Each Tab.chew, 1 EACH PO DAILY, (Reported) Ibuprofen 200 Mg Tablet, 600 MG PO DAILY PRN, (Reported) NEEDED FOR HEADACHE Levothyroxine Sodium 100 Mcg Tablet, 100 MCG PO DAILY, (Reported) Nebivolol HCl 10 Mg Tab, 10 MG PO DAILY, (Reported) Omeprazole 40 Mg Capsule.dr, 40 MG PO DAILY, (Reported) Patient Home Medication List Home Medication List Reviewed: Yes Past Qvjkfsq-Tchhbr-Smubvv Hx Patient Social History Alcohol Use: Regular Use Recreational Drug Use: No Family Medical History Significant Family History: Diabetes (denies DM in his family) Review of Systems-General Constitutional: No chills, No diaphoresis, No dizziness, No fever; weakness EENTM: No ear pain, No blurred vision, No vision loss Respiratory: No cough, No short of breath Cardiovascular: No chest pain, No palpitations Gastrointestinal: No constipation, No diarrhea Musculoskeletal: back pain, joint pain, joint swelling, muscle stiffness; No neck pain Skin: No hx of skin cancer, No rash Psychiatric/Neurological: Denies Headache, Denies Numbness Physical Exam-General Problems Physical Exam General Appearance: WD/WN, mild distress Eyes: Bilateral Eye PERRL, Bilateral Eye EOMI HEENT: pharynx normal; No scleral icterus (R), No pale conjunctivae (R) Neck: supple; No thyromegaly Respiratory: lungs clear, normal breath sounds, other (chest pain with deep breath) Cardiovascular: regular rate, rhythm, no murmur Gastrointestinal: non tender, soft Back: normal inspection, decreased range of motion Extremities: non-tender, no pedal edema Neurologic/Psychiatric: guidance secretary II-XII nml as tested, alert, normal mood/affect Skin: normal color, warm/dry Assessment/Plan Assessment/Plan Assessment/Plan Pt was evalutated by Trauma service; he does not need any surgical intervention. I will sign off and Medicine can take over care of pt. Supervisory-Addendum Brief Verification & Attestation Participated in pt care: history, MDM, physical Personally performed: exam, history, MDM Care discussed with: Medical Student Procedures: n/a Verification and Attestation of Medical Student E/M Service A medical student performed and documented this service. I then reviewed and verified all information documented by the medical student and made modifications to such information, when appropriate. I personally performed a physical exam, medical decision making and then discussed any differences between the notes and made revisions as necessary to create one note. Shanti Foster , 06/07/19 , 18:13 SUNIL MARCIAL MEDICAL STUDENT Jun 07, 2019 16:12 SHANTI FOSTER DO Jun 07, 2019 18:10
[2019-06-07] MEDS: THIAMINE INJECTION 100 MG, FOLIC ACID INJECTION 1 MG, MAGNESIUM SULFATE 2 GM, VITAMIN M... IV SCH ×5 (16:20)
[2019-06-07] MEDS: fentaNYL INJECTION 100 MCG/2 ML AMP IV PRN ×2 (16:21→22:01)
[2019-06-07 16:30] VITALS: BP 157/81
[2019-06-07 20:00] VITALS: BP 163/81
[2019-06-07] MEDS ORDERED: ALPRAZolam 1 MG (XANAX) TAB PO PRN (21:00)
--- NOTE | 2019-06-07 21:44 | NUR ---
THIS RN SPOKE WITH DR. QUINN IN REGARDS TO STARTING HOME MEDICATIONS - PROVIDER APPROVED
[2019-06-07] MEDS ORDERED: NEBIVOLOL 5 MG TAB (NON-FORMULARY) PO SCH (22:30)
[2019-06-07] MEDS: meTOprolol TARTRATE 25 MG (LOPRESSOR) TABLET PO SCH (23:44)
[2019-06-08] VITALS: BP 150/79
[2019-06-08] MEDS: D5 1/2 NS W/KCL 20 MEQ/L 1,000 ML IV SCH ×2 (01:00→02:37)
[2019-06-08] MEDS: fentaNYL INJECTION 100 MCG/2 ML AMP IV PRN ×5 (02:37→20:22)
[2019-06-08 02:55] LABS: BASOPHILS % (AUTO) 0 % (0-10); EOSINOPHILS # (AUTO) 0.2 10^3/uL (0.0-0.3); EOSINOPHILS % (AUTO) 3 % (0-10); HEMATOCRIT 39 % (40-54); LYMPHOCYTES # (AUTO) 1.5 X 10^3 (1.0-4.0); LYMPHOCYTES % (AUTO) 22 % (12-44); MEAN CORPUSCULAR HEMOGLOBIN 28 PG (25-34); MEAN CORPUSCULAR HGB CONC 34 G/DL (32-36); MEAN CORPUSCULAR VOLUME 84 FL (80-99); MEAN PLATELET VOLUME 9.5 FL (7.4-10.4); MONOCYTES # (AUTO) 1.6 X 10^3 (0.0-1.0); MONOCYTES % (AUTO) 22 % (0-12); NEUTROPHILS # (AUTO) 3.7 X 10^3 (1.8-7.8); NEUTROPHILS % (AUTO) 53 % (42-75); PLATELET COUNT 203 10^3/uL (130-400); RED CELL DISTRIBUTION WIDTH 14.6 % (10.0-14.5); WHITE BLOOD COUNT 7.1 10^3/uL (4.3-11.0)
[2019-06-08 03:36] LABS: ALANINE AMINOTRANSFERASE 16 U/L (0-55); ALBUMIN 3.5 GM/DL (3.2-4.5); ALKALINE PHOSPHATASE 95 U/L (40-136); BUN/CREATININE RATIO 10; CALCIUM 8.3 MG/DL (8.5-10.1); CARBON DIOXIDE 24 MMOL/L (21-32); CHLORIDE 94 MMOL/L (98-107); CREATININE SERUM 0.68 MG/DL (0.60-1.30); GFR ESTIMATED > 60; GLUCOSE 106 MG/DL (70-105); POTASSIUM 3.4 MMOL/L (3.6-5.0); SODIUM 127 MMOL/L (135-145); TOTAL PROTEIN 6.8 GM/DL (6.4-8.2)
[2019-06-08 04:00] VITALS: BP 133/76
[2019-06-08 04:22] LABS: BAND NEUTROPHILS 1 %; EOSINOPHILS % (MANUAL) 2 %; LYMPHOCYTES % (MANUAL) 29 %; MONOCYTES % (MANUAL) 22 %; NEUTROPHILS % (MANUAL) 46 %; RBC MORPH NORMAL
--- NOTE | 2019-06-08 05:31 | Diagnostic Imaging Report ---
Indication: Pulmonary contusion Portable chest 3:32 AM Heart size and pulmonary vascularity are normal. There is minimal right perihilar atelectasis. There are no effusions or pneumothoraces. IMPRESSION: Right perihilar atelectasis. No appreciable change compared to the previous day. Dictated by: Dictated on workstation # [id number]
[2019-06-08] MEDS ORDERED: ENOXAPARIN 30 MG/0.3 ML (LOVENOX) SYR SC SCH (06:00)
[2019-06-08] MEDS: LEVOTHYROXINE 100 MCG (LEVOTHROID) TAB PO SCH (06:36)
[2019-06-08] MEDS: THIAMINE INJECTION 100 MG, FOLIC ACID INJECTION 1 MG, MAGNESIUM SULFATE 2 GM, VITAMIN M... IV SCH ×10 (08:17→10:51)
[2019-06-08] MEDS: PANTOPRAZOLE 40 MG (PROTONIX) TAB PO SCH (08:17)
[2019-06-08] MEDS: FOLIC ACID 1 MG TAB PO SCH (08:17)
[2019-06-08] MEDS ORDERED: NS IV 1000 ML 1,000 ML IV SCH (08:30)
[2019-06-08] MEDS ORDERED: NEBIVOLOL 5 MG TAB (NON-FORMULARY) PO SCH (09:00)
--- NOTE | 2019-06-08 09:02 | History & Physical ---
History of Present Illness History of Present Illness Reason for visit/HPI 74 yo male admitted for a trauma after falling in his home on 06/06/2019- he was walking with his walker and attempted to turn left and fell over. He complains of head pain, chest pain, rib pain, knee pain, ankle pain. He is a known alcoholic and continues to drink which results in his falls. He lives alone. He is but his lives in [place] and works at [employer]; she rents a place so she does not have to be at home. He broke his right hip January 2019, and re-injured it again in February 2019- both of which are likely related to being intoxicated. [facility] will not go back to his house as they felt uncomfortable after the comments he made when he found out that home health would not clean his house and do his dishes. We have attempted detox with librium but was unsuccessful. Patient this AM stated that he only drinks beer now and that it is not that bad. He will need to be monitored inpatient since his saturation (oxygen) are low 90s on room air and imaging noted a small hemothorax, pulmonary effusions, multiple right sided rib fractures 5,6,10. Date of Admission Jun 07, 2019 at 13:30 Date Seen by a Provider: Jun 08, 2019 Time Seen by a Provider: 08:56 I consulted on this patient on 06/08/19 08:55 Attending Physician Dudley Foster DO Admitting Physician Alejandro Quinn MD Consult Allergies and Home Medications Allergies Coded Allergies: Penicillins (Unverified Allergy, Unknown, 03/09/11) Sulfa (Sulfonamide Antibiotics) (Verified Allergy, Unknown, 06/07/19) Home Medications Aspirin 81 Mg Tablet.dr, 81 MG PO DAILY, (Reported) Atorvastatin Calcium 10 Mg Tablet, 10 MG PO HS, (Reported) Carvedilol 6.25 Mg Tablet, 6.25 MG PO BID, (Reported) Escitalopram Oxalate 20 Mg Tablet, 40 MG PO DAILY, (Reported) Ibuprofen 200 Mg Tablet, 600 MG PO Q8H PRN for PAIN-MILD (1-4), (Reported) Levothyroxine Sodium 200 Mcg Tablet, 100 MCG PO DAILY, (Reported) TAKES OF A 200MCG TO EQUAL 100MCG DAILY Omeprazole 20 Mg Capsule.dr, 20 MG PO DAILY, (Reported) Oxybutynin Chloride 5 Mg Tablet, 5 MG PO BID, (Reported) Patient Home Medication List Home Medication List Reviewed: Yes Past Qnvrstq-Nabfpr-Yxnswf Hx Patient Social History Marrital Status: () Alcohol Use: Regular Use Recreational Drug Use: No Smoking Status: Former Smoker (> 2 PPD, AND CHEWING TOBACCO) Former Smoker, Quit: Jun 16, 2004 Type Used: Cigarettes, Smokeless Tobacco Recent Foreign Travel: No Contact w/other who traveled: No Recent Hopitalizations: No Recent Infectious Disease Expo: No Immunizations Up To Date Date of Pneumonia Vaccine: Jan 07, 2019 Date of Influenza Vaccine: Jan 07, 2019 Surgeries Yes (SEE BELOW) Cardiac, Coronary Stent, Orthopedic, Thyroidectomy Respiratory Yes Cardiovascular Yes (STENT TO LAD 2010--STENT PATENT ON CATH 04/2017) Coronary Artery Disease, High Cholesterol, Hypertension Neurological No Reproductive System Hx Reproductive Disorders: No Genitourinary Yes (INCONTINENCE) Gastrointestinal Yes (GASTRITIS NOTED ON EGD) Diverticulosis, Hemorrhoids, Irritable Bowel Musculoskeletal Yes (RIGHT HIP/FEMUR FRACTURE/ORIF; L1 KYPHOPLASTY; POOR AMBULATION/USES WALKER) Arthritis, Chronic Back Pain, Fractures Endocrine History of Endocrine Disorders: Yes (RIGHT THYROIDECTOMY FOR BENIGN GOITER) Endocrine Disorders: Hypothyroidsim HEENT History of HEENT Disorders: No Cancer No Psychosocial History of Psychiatric Problem: Yes Behavioral Health Disorders: Anxiety, Depression Integumentary History of Skin or Integumenta: Yes (REMOVAL OF SKIN LESIONS) Blood Transfusions History of Blood Disorders: No Family Medical History Significant Family History: Diabetes (denies DM in his family) Other Significan Family Hx: PSH: -CARDIAC CATHS--STENT TO LAD IN 2010. LAST CATH 04/2017--PATENT STENT, NO INTERVENTION. -EGD/COLONOSCOPY 2009--GASTRITIS, DIVERTICULOSIS, HEMORRHOIDS, IBS -RIGHT HIP/FEMUR FX/ORIF -L1 KYPHOPLASTY -RIGHT THYROIDECTOMY FOR BENIGN GOITER -REMOVAL OF SKIN LESIONS Review of Systems Review of Systems General: No Chills, No Night Sweats HEENT: No Head Aches Pulmonary: No Dyspnea, No Cough Cardiovascular: Chest Pain Gastrointestinal: No: Nausea, Vomiting Genitourinary: No Dysuria; Frequency, Incontinence Musculoskeletal: shoulder pain, back pain, leg pain, foot pain Neurological: Weakness Physical Exam Vital Signs Vital Signs - First Documented 06/07/19 06/07/19 10:11 10:20 Temp 37.1 Pulse 70 Resp 18 B/P (MAP) 153/84 (107) Pulse Ox 91 O2 Delivery Nasal Cannula O2 Flow Rate 2.00 Capillary Refill : Less Than 3 Seconds Height, Weight, BMI Height: 5'6.00" Weight: 176lbs. 0.0oz. 79.537895ua; 28.12 BMI Method: General Appearance: Mild Distress HEENT: PERRL/EOMI Neck: Non Tender, Supple Respiratory: Chest Non Tender, Lungs Clear Cardiovascular: Regular Rate, Rhythm, No Edema Gastrointestinal: Non Tender, Soft Extremity: Normal Inspection, Other (pain with right knee movement) Neurologic/Psychiatric: Alert, Oriented x3 (mentation is slow due to alcohol use) Skin: Warm/Dry Assessment/Plan Assessment/Plan Admission Dx intractable pain. rib fractures- small hemothorax Admission Status: Inpatient Order (span 2 midnights) Reason for Inpatient Admission: will need 2 midnights to stabilize his hyponatremia and monitor his hemothorax, intractable pain. His oxygen saturations were around 90 on admission they have improved to low 90s on room air. He could decompensate quickly. Assessment and Plan transferring to the floor to continue care. continue home medications. 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 Goal is not to bring it up too fast though as it is a chronic issue. [facility] protocol- ativan ordered prn recommend he quit drinking etoh. pain management- will send home on hydrocodone/apap- Dispo: case management consult- consider placement- as he lives alone and is declining in his ability to care for himself. But, he will likely stay at a facility for a short period of time and get mad at staff and walk out. After this admission patient will likely no longer be a patient of [facility]- we will continue to care for him 30 days from 06/06/2019 while he finds another p rovider. Indication: due to multiple events of being inappropriate and rude to office staff (most recently on 06/06/19), [facility] staff, [facility] staff (Jan, Feb 2019). Problems: (1) Intractable pain Assessment & Plan: fentanyl iv will transition to po. (2) Hypothyroid Assessment & Plan: continue levothyroxine (3) HTN (hypertension) Qualifiers: Qualified Codes: I10 - Essential (primary) hypertension (4) Fall at home Qualifiers: Qualified Codes: W19.XXXA - Unspecified fall, initial encounter; Y92.009 - Unspecified place in unspecified non-institutional (private) residence as the place of occurrence of the external cause (5) Alcohol abuse (6) Chronic hyponatremia Assessment & Plan: worsened by 1/2 NS IVF overnight changed to NS. Clinical Quality Measures DVT/VTE Risk/Contraindication: Risk Factor Score Per Nursin RFS Level Per Nursing on Admit: 4+=Very High ALEJANDRO QUINN MD Jun 08, 2019 09:02
[2019-06-08 09:20] VITALS: BP 152/78
--- NOTE | 2019-06-08 09:20 | NUR ---
Report received from [facility]. 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 Will assume care at this time.
--- NOTE | 2019-06-08 10:25 | Pulmonary Consultation ---
History of Present Illness History of Present Illness Date Seen by Provider: Jun 08, 2019 Time Seen by Provider: 05:00 Date of Admission History of Present Illness 74yo who is known alcohololic presented to ED s/p fall. He was found to have small bilateral pleural effusions and multiple fractured ribs. He has a hx of multiple falls resulting in fractures. Dr. Foster did see pt and has signed off. Pt is on RA and does not have significant SOB or productive cough. Allergies and Home Medications Allergies Coded Allergies: Penicillins (Unverified Allergy, Unknown, 03/09/11) Sulfa (Sulfonamide Antibiotics) (Verified Allergy, Unknown, 06/07/19) Home Medications Alprazolam 1 Mg Tablet, 0.5 MG PO HS PRN for SLEEP, (Reported) Aspirin 81 Mg Tablet.dr, 81 MG PO DAILY, (Reported) Atorvastatin Calcium 10 Mg Tablet, 10 MG PO DAILY, (Reported) Escitalopram Oxalate 20 Mg Tablet, 40 MG PO DAILY, (Reported) Folic Acid/Multivit-Min/Lutein 1 Each Tab.chew, 1 EACH PO DAILY, (Reported) Ibuprofen 200 Mg Tablet, 600 MG PO DAILY PRN, (Reported) NEEDED FOR HEADACHE Levothyroxine Sodium 100 Mcg Tablet, 100 MCG PO DAILY, (Reported) Nebivolol HCl 10 Mg Tab, 10 MG PO DAILY, (Reported) Omeprazole 40 Mg Capsule.dr, 40 MG PO DAILY, (Reported) Past Jwkivyz-Uplzut-Lszknf Hx Past Med/Social Hx: Reviewed and Corrections made Patient Social History Alcohol Use: Regular Use Recreational Drug Use: No Smoking Status: Former Smoker (> 2 PPD, AND CHEWING TOBACCO) Type Used: Cigarettes, Smokeless Tobacco Former Smoker, Quit: Jun 16, 2004 Recent Foreign Travel: No Contact w/Someone Who Travel: No Recent Infectious Disease Expo: No Recent Hopitalizations: No Physical Abuse: No Sexual Abuse: No Mistreated: No Fear: No Immunizations Up To Date Date of Pneumonia Vaccine: Jan 07, 2019 Date of Influenza Vaccine: Jan 07, 2019 Past Medical History Surgeries: Yes (SEE BELOW) Cardiac, Coronary Stent, Orthopedic, Thyroidectomy Respiratory: Yes COPD Cardiac: Yes (STENT TO LAD 2010--STENT PATENT ON CATH 04/2017) Coronary Artery Disease, High Cholesterol, Hypertension Neurological: No Reproductive Disorders: No Genitourinary: Yes (INCONTINENCE) Gastrointestinal: Yes (GASTRITIS NOTED ON EGD) Diverticulosis, Hemorrhoids, Irritable Bowel Musculoskeletal: Yes (RIGHT HIP/FEMUR FRACTURE/ORIF; L1 KYPHOPLASTY; POOR AMBULATION/USES WALKER) Arthritis, Chronic Back Pain, Fractures Endocrine: Yes (RIGHT THYROIDECTOMY FOR BENIGN GOITER) Hypothyroidsim HEENT: No Cancer: No Psychosocial: Yes Anxiety, Depression Integumentary: Yes (REMOVAL OF SKIN LESIONS) Blood Disorders: No Family Medical History Diabetes (denies DM in his family) PSH: -CARDIAC CATHS--STENT TO LAD IN 2010. LAST CATH 04/2017--PATENT STENT, NO INTERVENTION. -EGD/COLONOSCOPY 2009--GASTRITIS, DIVERTICULOSIS, HEMORRHOIDS, IBS -RIGHT HIP/FEMUR FX/ORIF -L1 KYPHOPLASTY -RIGHT THYROIDECTOMY FOR BENIGN GOITER -REMOVAL OF SKIN LESIONS Review of Systems Time Seen by Provider: 10:25 Sepsis Event Evaluation Height, Weight, BMI Height: 5'6.00" Weight: 176lbs. 0.0oz. 79.536069km; 28.12 BMI Method: Exam Exam Vital Signs Date Time Temp Pulse Resp B/P (MAP) Pulse Ox O2 Delivery O2 Flow Rate FiO2 06/08/19 09:00 94 Room Air 06/08/19 08:00 36.6 06/08/19 07:00 75 06/08/19 04:00 36.9 60 19 133/76 (95) 93 Room Air 06/08/19 01:00 69 06/08/19 00:00 36.4 73 21 150/79 (102) 93 Room Air 06/07/19 21:00 94 Room Air 06/07/19 20:00 36.4 77 19 163/81 (108) 94 Room Air 06/07/19 19:00 80 06/07/19 18:31 94 Room Air 06/07/19 16:30 37.2 78 20 157/81 (106) 96 Room Air 06/07/19 16:00 37.1 72 159/85 (109) 94 06/07/19 15:02 78 06/07/19 14:28 81 16 162/96 94 Nasal Cannula 2.00 06/07/19 11:04 37.1 70 18 153/84 (107) 91 06/07/19 10:20 94 Nasal Cannula 2.00 I & O 06/08/19 06:59 Intake Total 2880 ml Output Total 1600 ml Balance 1280 ml Height & Weight Height: 5'6.00" Weight: 176lbs. 0.0oz. 79.841385kr; 28.12 BMI Method: General Appearance: No Apparent Distress HEENT: PERRL/EOMI Neck: Non Tender, Supple Respiratory: Chest Non Tender, Lungs Clear Cardiovascular: Regular Rate, Rhythm, No Edema Capillary Refill: Less Than 3 Seconds Gastrointestinal: non tender, soft Extremity: Normal Inspection, Other (pain with right knee movement) Neurologic/Psychiatric: Alert, Oriented x3 (mentation is slow due to alcohol use) Skin: Warm/Dry Results Lab Laboratory Tests 06/07/19 10:36 06/08/19 02:40 Assessment/Plan Assessment/Plan s/p fall he has a very small hemothorax -Surgery signed off rib fractures right 5th, 6th, and 10th Alcohol dependance I discussed with Dr. Hawk. Will send pt to 4th floor. I am going to sign off. Please call with any questions or concerns. LATOYA LUONG DO Jun 08, 2019 10:25
[2019-06-08 12:57] VITALS: BP 146/74
--- NOTE | 2019-06-08 13:30 | Occupational Therapy Eval ---
OT Evaluation-General/PLF Medical Diagnosis Admission Date Jun 07, 2019 at 13:30 Medical Diagnosis: Rib fx, small hemothorax Onset Date: Jun 07, 2019 Therapy Diagnosis Therapy Diagnosis: Weakness, Decreased ADL skills Height/Weight Height (Feet): 5 Height (Inches): 6.00 Weight (Pounds): 176 Weight (Ounces): 0.0 Precautions Precautions/Isolations: Fall Prevention, Standard Precautions Weight Bear Status Weight Bearing Restriction: Weight Bearing/Tolerated Referral Physician: Dr. Hawk Referral Reason: Activity Tolerance, Self Care, Evaluation/Treatment, Strengthening/ROM Medical History Pertinent Medical History: CAD, HTN Additional Medical History Kyphoplasty, Right hip fx, coronary stent, Current History Pt. fell at home. Sustained rib fx. Pt. also has small hemothorax. Reviewed History: Yes Social History Home: Single Level Current Living Status: Alone ADL-Prior Level of Function SCALE: Activities may be completed with or without assistive devices. 9-Ekdftivipu-sblbzsk completes the activity by him/herself with no assistance from a helper. 5-Set-up or Clean-up Assistance-helper sets up or cleans up; patient completes activity. Hallock assists only prior to or following the activity. 4-Supervision or Touching Assistance-helper provides verbal cues and/or touching/steadying and/or contact guard assistance as patient completes activity. Assistance may be provided throughout the activity or intermittently. 3-Partial/Moderate Assistance-helper does LESS THAN HALF the effort. Hallock lifts, holds or supports trunk or limbs, but provides less than half the effort. 2-Substantial/Maximal Assistance-helper does MORE THAN HALF the effort. Hallock lifts or holds trunk or limbs and provides more than half the effort. 1-Abdtxizmp-ebskzo does ALL the effort. Patient does none of the effort to complete the activity. Or, the assistance of 2 or more helpers is required for the patient to complete the activity. If activity was not attempted, code reason: 7-Patient Refused. 9-Not Applicable-not attempted and the patient did not perform the activity before the current illness, exacerbation or injury. 10-Not Attempted due to Environmental Limitations-(lack of equipment, weather restraints, etc.). 88-Not Attempted due to Medical Conditions or Safety Concerns. ADL PLOF Comments Pt. reports that he was independent with daily skills. States that he sometimes has difficulty with right LE, but that he has a sock aide. Self Care: Unknown Functional Cognition: Unknown DME/Equipment Comments Pt. reports that he has a 4 ww, a 2 ww, and a cane. Reports that he was using his cane when he fell. Drive Self: Yes (Pt reports that he was driving previous to this hospitalization.) OT Current Status Subjective Pt. is asked if he has pain. States that he has pain "all over." Does not give pain rating. OT assisted with positioning pt. after treatment to comfort level. Pt. has had medication. Appearance Pt. up in [place] with PT when came to assess him. Mental Status/Objective Patient Orientation: Person, Place Attachments: IV ADL-Treatment On/Off Footwear (QC): 3 (Pt. able to doff/don left slipper sock, but unable to fully doff right. Required assistance to don right.) OT took over treatment for PT in hallway. Noted slow gait with 4 ww, requiring SBA. OT obtained waffle cushion for chair but pt. did not want to sit in chair. OT encouraged pt. to shower, and offered to put cushion on shower chair. Pt. declines and states, "I will do it when I go home." Pt. requires cues throughout for safety, and to complete the next step. Pt. sat on side of bed with cues to sit toward HOB. Increased time needed. Pt. practiced doffing/donning slipper socks. OT educates him that purpose of treatment is to gain strength and independence with daily skills, but also to determine possible needs after discharge from home. Pt. states that he wont need help at home. OT encourages him that he might. Pt. required mod assistance for sit-supine, and cues and min assist to position self in bed. All needs met and pt. then grateful for OT assist. Education OT Patient Education: Correct positioning, Modified ADL techniques, Progress toward Goal/Update tx plan, Purpose of tx/functional activities, Reviewed precautions, Rehab process, Transfer techniques Teaching Recipient: Patient Teaching Methods: Demonstration, Discussion Response to Teaching: Verbalize Understanding, Return Demonstration OT Caustic Room Attendant Goals Caustic Room Attendant Goals Time Frame: Jun 15, 2019 Eating (QC): 6 Oral Hygiene (QC): 6 Toileting Hygiene (QC): 6 Shower/Bathe Self (QC): 5 Upper Body Dressing (QC): 5 Lower Body Dressing (QC): 5 On/Off Footwear (QC): 5 Additional Goals: 1-Demonstrate ADL Tasks, 2-Verbalize Understanding, 3- ImproveStrength/Dirk 1=Demonstrate adherence to instructed precautions during ADL tasks. 2=Patient will verbalize/demonstrate understanding of assistive devices/modifications for ADL. 3=Patient will improve strength/tolerance for activity to enable patient to perform ADL's. OT Education/Plan Problem List/Assessment Assessment: Decreased Activ Tolerance, Dependent Transfers, Impaired I ADL's, Impaired Self-Care Skills Discharge Recommendations Plan/Recommendations: Continue POC Therapy Discharge Recommendati: Post Acute OT Equpiment Recommendations-D/C: Hip Kit Treatment Plan/Plan of Care Treatment,Training & Education: Yes Patient would benefit from OT for education, treatment and training to promote independence in ADL's, mobility, safety and/or upper extremity function for ADL's. Plan of Care: ADL Retraining, Functional Mobility, UE Funct Exercise/Act Treatment Duration: Jun 15, 2019 Frequency: 5 times per week Rehab Potential: Fair Time/GCodes Start Time: 14:05 Stop Time: 14:25 Total Time Billed (hr/min): 20 Billed Treatment Time 1, JUNIE LEONG OT Jun 08, 2019 13:30
--- NOTE | 2019-06-08 14:03 | Physical Therapy Evaluation ---
PT Evaluation-General Medical Diagnosis Admission Date Jun 07, 2019 at 13:30 Medical Diagnosis: Rib fx, small hemothorax Onset Date: Jun 07, 2019 Therapy Diagnosis Therapy Diagnosis: debility/weakness Height/Weight Height (Feet): 5 Height (Inches): 6.00 Weight (Pounds): 176 Weight (Ounces): 0.0 Precautions Precautions/Isolations: Fall Prevention, Standard Precautions Referral Physician: Dr. Hawk Reason for Referral: Evaluation/Treatment Medical History Pertinent Medical History: Alcoholism, CAD, HTN, Smoking Current History EMS secondary to fall at home yesterday per patient report. Reviewed History: Yes Social History Home: Single Level Current Living Status: Alone Prior Prior Level of Function SCALE: Activities may be completed with or without assistive devices. 7-Gkklgbykeq-myhpgfk completes the activity by him/herself with no assistance from a helper. 5-Set-up or Clean-up Assistance-helper sets up or cleans up; patient completes activity. Orwell assists only prior to or following the activity. 4-Supervision or Touching Assistance-helper provides verbal cues and/or touching/steadying and/or contact guard assistance as patient completes activit y. Assistance may be provided throughout the activity or intermittently. 3-Partial/Moderate Assistance-helper does LESS THAN HALF the effort. Orwell lifts, holds or supports trunk or limbs, but provides less than half the effort. 2-Substantial/Maximal Assistance-helper does MORE THAN HALF the effort. Orwell lifts or holds trunk or limbs and provides more than half the effort. 9-Nrmuxbini-orzyhz does ALL the effort. Patient does none of the effort to complete the activity. Or, the assistance of 2 or more helpers is required for the patient to complete the activity. If activity was not attempted, code reason: 7-Patient Refused. 9-Not Applicable-not attempted and the patient did not perform the activity before the current illness, exacerbation or injury. 10-Not Attempted due to Environmental Limitations-(lack of equipment, weather restraints, etc.). 88-Not Attempted due to Medical Conditions or Safety Concerns. Bed Mobility: 6 Transfers (B,C,W/C): 6 Gait: 6 Indoor Mobility (Ambulation): Independent Prior Devices Use: Other-see list below (4WW) Prior Device Use: 4WW PT Evaluation-Current Subjective Patient agrees to PT. Reports 8/10 right back pain due to fractured ribs. Pain Numeric Pain Scale: 8 Location: Right Location Body Site: Back Pain Description: Acute Objective Patient Orientation: Normal For Age Attachments: IV ROM/Strength ROM Lower Extremities bilateral LE WFL Strength Lower Extremities 4/5 grossly bilateral LE Sensory Vision: Functional Hearing: Functional Sensation Right Lower Extremit: Intact Sensation Left Lower Extremity: Intact Transfers Sit to Lying (QC): 5 Lying to Sitting/Side of Bed(Q: 5 Sit to Stand (QC): 5 Chair/Ipf-mp-Tbpjw Xfer(QC): 5 Gait Does the Patient Walk?: Yes Mode of Locomotion: Walk Anticipated Mode of Locomotion: Walk Walk 10 feet (QC): 5 Walk 50 ft with 2 Turns(QC): 5 Walk 150 ft (QC): 5 Distance: 200' Gait Assistive Device: Walker 4 Wheeled Comments/Gait Description slow, steady with no deviation ( patient adamantly declined FWW use) Balance Sitting Static: Normal Sitting Dynamic: Normal Standing Static: Normal Standing Dynamic: Normal Assessment/Needs 74 y.o. male, will be seen short term by skilled PT to address functional strength and mobility to improve current LOF to safely return to home at maximum LOF. Rehab Potential: Fair Post Rehab Potential-Barriers: compliance PT Assisted Goals Remediation Technician Goals PT Assisted Goals Time Frame: Jun 17, 2019 Roll Left & Right (QC): 6 Sit to Lying (QC): 6 Lying-Sitting on Side/Bed(QC): 6 Sit to Stand (QC): 6 Chair/Fds-iu-Vfdat Xfer(QC): 6 Toilet Transfer (QC): 6 Does the Patient Walk: Yes Walk 10 feet (QC): 6 Walk 50ft with 2 Turns (QC): 6 Walk 150 ft (QC): 6 PT Plan Problem List Problem List: Bed Mobility Treatment/Plan Treatment Plan: Continue Plan of Care Treatment Plan: Bed Mobility, Education, Functional Activity Dirk, Functional Strength, Gait, Safety, Therapeutic Exercise, Transfers Treatment Duration: Jun 17, 2019 Frequency: 6 times per week Estimated Hrs Per Day: .25 hour per day Patient and/or Family Agrees t: Yes Time/GCodes Time In: 1250 Time Out: 1305 Total Billed Treatment Time: 15 Total Billed Treatment 1 visit EVLow 15 min LINA DELANEY PT Jun 08, 2019 14:03
[2019-06-08] MEDS ORDERED: ASPI-983 PO (14:31)
[2019-06-08] MEDS ORDERED: IBUP-2473 PO (14:31)
[2019-06-08] MEDS ORDERED: OMEP20CA18 PO (14:40)
[2019-06-08] MEDS ORDERED: LEVO200T6 PO (14:40)
[2019-06-08] MEDS ORDERED: CARV6.25 PO (14:40)
[2019-06-08] MEDS ORDERED: ATOR10TA66 PO (14:40)
[2019-06-08] MEDS ORDERED: OXYB5TAB13 PO (14:40)
--- NOTE | 2019-06-08 14:41 | NUR ---
SPOKE WITH THE PT AND CALLED [facility] TO COMPLETE THE MED REC PT SAYS HE ONLY TAKES A TAB ON HIS LEVOTHYROXINE DUE TO SIDE EFFECTS ( DIRECTIONS ARE 1 TAB DAILY) THE FOLLOWING ARE FILL DATES: 03-06-2019 ATORVASTATIN 10MG #90/90DS 03-06-2019 LEVOTHYROXINE 200MCG #90/180DS 04-17-2019 COREG 6.25MG #180/90DS 05-19-2019 ESCITALOPRAM 20MG #180/90DS 05-19-2019 OXYBUTYNIN 5MG #60/630DS OTC MEDS" ASPIRIN IBUPROFEN OMEPRAZOLE
--- NOTE | 2019-06-08 15:28 | NUR ---
CM/SS: Visited with pt as to plan for discharge Plan: Undetermined at this time, pt wants to go home and family request that pt go to a long-term facility Summary: Call from pt's daughter Sparkle, , she would like pt to go to skilled facility and prefers [facility]. This worker visited with pt as to his plan discharge. Pt reports that he wants to go home and that he does not want to go to another facility as he went last year after he broke his hip and had a fall, and he did not have a good experience there. Pt not really open to hear about other options. Physician notified of pt's refusal to go to a facility.
[2019-06-08 17:01] VITALS: BP 186/73
[2019-06-08] MEDS: diphenhydrAMINE 25 MG TAB (BENADRYL) PO PRN (19:31)
[2019-06-08 20:00] VITALS: BP 165/73
[2019-06-08] MEDS: meTOprolol TARTRATE 25 MG (LOPRESSOR) TABLET PO SCH (20:22)
[2019-06-09] MEDS: fentaNYL INJECTION 100 MCG/2 ML AMP IV PRN ×4 (00:08→13:04)
[2019-06-09 00:37] VITALS: BP 136/77
[2019-06-09 00:57] LABS: ALBUMIN 3.5 GM/DL (3.2-4.5); BUN/CREATININE RATIO 10; CALCIUM 8.4 MG/DL (8.5-10.1); CARBON DIOXIDE 23 MMOL/L (21-32); CHLORIDE 97 MMOL/L (98-107); CREATININE SERUM 0.63 MG/DL (0.60-1.30); GFR ESTIMATED > 60; GLUCOSE 114 MG/DL (70-105); PHOSPHORUS 2.1 MG/DL (2.3-4.7); POTASSIUM 3.9 MMOL/L (3.6-5.0); SODIUM 129 MMOL/L (135-145)
[2019-06-09 04:00] VITALS: BP 169/82
[2019-06-09 05:20] LABS: ALBUMIN 3.6 GM/DL (3.2-4.5); BUN/CREATININE RATIO 11; CALCIUM 8.6 MG/DL (8.5-10.1); CARBON DIOXIDE 23 MMOL/L (21-32); CHLORIDE 96 MMOL/L (98-107); CREATININE SERUM 0.66 MG/DL (0.60-1.30); GFR ESTIMATED > 60; GLUCOSE 106 MG/DL (70-105); PHOSPHORUS 2.5 MG/DL (2.3-4.7); SODIUM 129 MMOL/L (135-145)
[2019-06-09] MEDS: LEVOTHYROXINE 100 MCG (LEVOTHROID) TAB PO SCH (05:23)
--- OUTSIDE RECORDS SUMMARY | 2019-06-09 05:53 | XMS REPORT ---
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 Name Role Phone KIMBERLI GARY Unavailable Unavailable WISAMBOB Unavailable Unavailable HERNANDEZCONCETTA OROSCO Unavailable Unavailable ABDIRAHMAN SILVAE Unavailable Unavailable CANDIDO ESCALANTE Unavailable KIMBERLI GARY Unavailable MIYA RODGERS, KIRAN Dowd Unavailable Unavailab ELIZABETH Barney APRN Unavailable Unavailable YANET ALONSO, SAY Becerra Unavailable Unavailable BRITTA ALONSO, SELAM Borjas Unavailable Unavailable BORIS ALONSO, CANDIDO Self Unavailable Unavailable KAI ALONSO, DEWAYNE Ballard Unavailable Unavailable Allergies The data below is from unstructured sourcesNo Known Allergies Medications The data below is from unstructured sourcesNo Known Medications Problems Active Problems Problem Normalized Date of Normalized Normalized Provider Fac ility Classification Problem(s) Problem Problem Problem Sta tus Onset/Resoluti Duration on Allergic Allergy status Episodic Active no name no info rmation reactions (5 to penicillin sources.) Translations: [ ALLERGY STATUS TO SULFONAMIDES STATUS] Anxiety Anxiety state, Chronic Active THUYDEVYN CALLEJAS , No t Available disorders (3 unspecified (36370) sources.) Coronary Atheroscleroti Chronic Active SELAM CALLEJAS , No t Available atherosclerosi c heart (35258) s and other disease of heart disease cabazon (19 sources.) coronary artery without angina pectoris Translations: [ PERCUTANEOUS TRANSLUM CORON ANGIOPLASTY , CORONARY ATHEROSCLEROSI S DUE TO [place], CORONARY ATHEROSCLEROSI S OF [place] CORON, CORON ATHEROSCLER NOS TYPE VESSEL, NATIV] 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, MD BORIS (28008) degenerative unspecified nervous system conditions (2 sources.) Nonspecific Chest pain, Episodic Active SELAM CALLEJAS , Not Available chest pain (12 unspecified (36189) sources.) Translations: [ CHEST PAIN NOS] Other nervous Disturbance of Episodic Active CANDIDO Not Available system skin sensation MD BORIS (04240) disorders (2 sources.) Diverticulosis Diverticulosis Chronic Active CANDIDO No t Available and of colon MD BORIS (60011) diverticulitis (without (4 sources.) mention of hemorrhage) Translations: [ DVRTCLOS OF INTEST, PART UNSP, W/O PERF ] Esophageal Esophageal Chronic Active SELAM CALLEJAS , Not A vailable disorders (3 reflux (64326) sources.) Essential Essential Chronic Active SELAM CALLEJAS , Not Danielle ilable hypertension (primary) () (13 sources.) hypertension Translations: [ HYPERTENSION NOS] Other liver Fatty (change Chronic Active DEWAYNE KAI , V [facility] diseases (2 of) liver, not MD Petersen sources.) elsewhere Hospital - classified [facility] (14047) Other injuries Head injury, Episodic Active CANDIDO Not Available and conditions unspecified MD BORIS (93768) due to external causes (2 sources.) Disorders of Hyperlipidemia Chronic Active SELAM CALLEJAS , Not Available lipid , unspecified () metabolism (13 Translations: sources.) [ MIXED HYPERLIPIDEMIA , HYPERLIPIDEMIA NEC/NOS] Thyroid Hypothyroidism Chronic Active SELAM CALLEJAS , No t Available disorders (8 , unspecified MD (92078) sources.) Translations: [ HYPOTHYROIDISM NOS] Other [facility] Episodic Active no name no informati on aftercare (5 (current) use sources.) of aspirin Other Long-term Episodic Active SELAM CALLEJAS , Not Danielle ilable aftercare (3 (current) use (70900) sources.) of aspirin Other Long-term Episodic Active SELAM CALLEJAS , Not Danielle ilable aftercare (3 (current) use (23993) sources.) of other medications Cancer of Malignant Chronic Active SAY YANET , Not Avai lable prostate (5 neoplasm of (33324) sources.) prostate Nonmalignant Mastodynia Episodic Active ELIZABETH CHENG Not Available breast (84806) conditions (2 sources.) Heart valve Mitral valve Chronic Active SELAM URBINAJI , No t Available disorders (3 disorders (96786) sources.) Translations: [ TRICUSPID VALVE DISEASE] Substance-rela Nicotine Chronic Active THUYHAR BRITTA , Not Available puma disorders dependence, (81868) (8 sources.) cigarettes, uncomplicated Translations: [ TOBACCO USE DISORDER] Other liver Other chronic Chronic Active CANDIDO Not Av ailable diseases (2 nonalcoholic MD BORIS (66307) sources.) liver disease Other Other long Episodic Active no name no informat ion aftercare (5 term (current) sources.) drug therapy Other liver Other Chronic Active SEAN CASE Vi a diseases (2 specified MD Petersen sources.) diseases of Hospital - liver [place] (21300) Other Other Episodic Active no name no informatio n circulatory specified disease (5 symptoms and sources.) signs involving the circulatory and respiratory systems Other lower Pleurodynia Episodic Active SEAN CASE Via respiratory MD [facility]en disease (1 Hospital - source.) [place] (83402) Spondylosis; 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 CANDIDO Not A vailable intervertebral stenosis in MD BORIS (59150) disc cervical disorders; region other back Translations: problems (5 [ LUMBOSACRAL sources.) SPONDYLOSIS, OTHER INTERVERTEBRAL DISC DEGENERATION, , SACROCOCCYGEAL DISORDERS, NOT ELSEWHERE , PAIN IN THORACIC SPINE] Spondylosis; Spondylosis Chronic Active DEWAYNE QUINN [facility] intervertebral without MD [facility]en disc myelopathy or Hospital - disorders; radiculopathy, [facility] other back lumbar region (42417) problems (1 source.) Residual Tobacco use Episodic Active IKRAN Not Availa ble codes; [place] (16758) unclassified N , [place] (5 sources.) External cause Unspecified Episodic Active SEAN CASE Via codes: Fall (1 fall, initial MD Petersen source.) encounter [facility] () Other [place] Episodic Active DEWAYNE QUINN Not Avai lable fractures (2 compression (44795) sources.) fracture of first lumbar vertebra, initial encounter for closed fracture Past or Other Problems Problem Normalized Date of Normalized Normalized Provider Fac ility Classification Problem(s) Problem Problem Problem Sta tus Onset/Resoluti Duration on Mood disorders Major no information no information no name no information (5 sources.) depressive disorder, single episode, unspecified Abdominal Umbilical Episodic Completed CANDIDO Not Availabl e hernia (5 hernia without MD BORIS (48470) sources.) mention of obstruction or gangrene Translations: [ UNILAT INGUINAL HERNIA, UMBILICAL HERNIA WITHOUT OBSTRUCTION OR ] External cause Unspecified no information no information KATHLE EN Not Available codes: Fall (2 fall MD BORIS (92877) sources.) Procedures No Information Immunizations The data below is from unstructured sources No Known Immunizations Results The data below is from unstructured sourcesNo Known Results No Results No Results Vital Signs The data below is from unstructured sources Blood pressure systolic 155 mmHg 2016-07-07 Blood pressure diastolic 85 mmHg 2016-07-07 Interventions No Information Plan of Treatment The data below is from unstructured sources Activity Details Follow Up prn Reason:PT WILL CALL Goals No Information Social History The data below is from unstructured sources History Response Recorde d Date/Time Hx Family Cancer Y MOTHER PANCREATIC 03/09/11 5:26pm Hx Family Cardiac Disorders Y FATHER TRIPLE BYPASS 03/09/11 5:26pm Hx Family Myocardial Infarction Y 03/09/11 5:26pm Functional Status No Information Mental Status No Information Encounters Encounter Normalized Encounter Encounter Diagnosis Care Provi lee Organization Date Type 12-29-2017 Patient encounter no information no name (no phone) no organization name (no phone) 05-26-2017 Patient encounter no information no name (no phone) no organization name - (no phone) 05-26-2017 09-14-2016 Patient encounter no information no name (no phone) no organization name (no phone) 11-27-2015 Patient encounter no information no name (no phone) no organization name (no phone) 11-22-2015 Patient encounter no information no name (no phone) no organization name (no phone) 12-07-2014 Patient encounter no information no name (no phone) no organization name (no phone) 05-31-2014 Patient encounter no information no name (no phone) no organization name (no phone) 08-18-2013 Patient encounter no information no name (no phone) no organization name (no phone) 03-27-2013 Patient encounter no information no name (no phone) no organization name (no phone) 01-03-2013 Patient encounter no information no name (no phone) no organization name - (no phone) 01-03-2013 12-06-2012 Patient encounter no information no name (no phone) no organization name (no phone) 12-01-2012 Patient encounter no information no name (no phone) no organization name (no phone) 12-05-2018 Patient encounter no information no name (no phone) no organization name procedure (no phone) 10-20-2018 Patient encounter no information no name (no phone) no organization name procedure (no phone) 10-06-2018 Patient encounter no information no name (no phone) no organization name procedure (no phone) Medical Equipment No Information Payers The data below is from unstructured sources Payer Name Policy Number Subscriber Name Relationship [employer] [id number] Zackary Aguayo Self / Same As Patient [facility] [id number] Zackary Aguayo Self / Same As Patient Summary Purpose eClinicalWorks Submission Advance Directives Directive Response Recor ded Date Advance Directives Y 11/08 10:47am Health Care Power of Shop Supervisor Y 01/03/13 10:47am Organ Donor Y 01/03/13 1 0:47am Additional Source Comments This clinical document has been generated using [employer] software that has been certified by the Office of the National Coordinator for Health Information Technology (ONC 15.99.04.3023.Diam.[id number]) and the National Committee for Ethylene Compressor Operator (NCQA, as an eMeasure certified technology). FOR RECORDS PERTAINING TO PATIENTS WHO ARE OR HAVE BEEN ENROLLED IN A CHEMICAL D EPENDENCY/SUBSTANCE ABUSE PROGRAM, SOME INFORMATION MAY BE OMITTED. This clinica l summary was aggregated from multiple sources. Caution should be exercised in using it in the provision of clinical care. This summary normalizes information from multiple sources, and as a consequence, information in this document may ma terially change the coding, format and clinical context of patient data. In joy tion, data may be omitted in some cases. CLINICAL DECISIONS SHOULD BE BASED ON T HE PRIMARY CLINICAL RECORDS. [employer] provides no warranty or guara ntee of the accuracy or completeness of information in this document.The followi ng information is based on time limited clinical information UNRECOGNIZED CONTENT PROVIDED BELOW FOR UNRECOGNIZED SECTION MEDICAL (GENERAL) HISTORY Type Description Date Medical History HBP Medical History Thyroid Medical History Blood thinners Surgical History Stent placed 2012
--- OUTSIDE RECORDS SUMMARY | 2019-06-09 05:54 | XMS REPORT | Continuity of Care Document ---
Author Organization Unknown Address Unknown Phone Unavailable Allergies Active Description Code Type Severity Reaction Onset Reported/Identified Relationship to Patient Clinical Status Yes Penicillins [id number] Drug Aller gy Unknown N/A 03/09/2011 Yes Sulfa (Sulfonamide Antibiotics) [id number] Drug Allergy Unknown N/A 020 Medications There is no data. 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 9 HYPOTHYROIDISM NOS 01/03/2013 SELAM CALLEJAS MD Ot 272. 4 HYPERLIPIDEMIA NEC/NOS 01/03/2013 SELAM CALLEJAS MD Ot 300. 00 ANXIETY STATE NOS 01/03/2013 SELAM CALLEJAS MD Ot 305. 1 TOBACCO USE DISORDER 01/03/2013 SELAM CALLEJAS MD Ot 401. 9 HYPERTENSION NOS 01/03/2013 SELAM CALLEJAS MD Ot 414. 01 CORONARY ATHEROSCLEROSIS OF CREEK CORON 01/03/2013 SELAM CALLEJAS MD Ot 414. 4 CORONARY ATHEROSCLEROSIS DUE TO CALCIFIE 01/03/2013 BRITTA MD, BASHAR J Ot 530. 81 ESOPHAGEAL REFLUX 01/03/2013 SELAM CALLEJAS MD Ot 786. 50 CHEST PAIN NOS 01/03/2013 SELAM CALLEJAS MD Ot V45. 82 PERCUTANEOUS TRANSLUM CORON ANGIOPLASTY 01/03/2013 SELAM CALLEJAS MD Ot V58. 66 LONG-TERM (CURRENT) USE OF ASPIRIN 01/03/2013 SELAM CALLEJAS MD Ot V58. 69 OT MED,LT,CURRENT USE 01/03/2013 SELAM CALLEJAS MD Ot 244. 9 HYPOTHYROIDISM NOS 01/03/2013 SELAM CALLEJAS MD Ot 272. 4 HYPERLIPIDEMIA NEC/NOS 01/03/2013 SELAM CALLEJAS MD Ot 300. 00 ANXIETY STATE NOS 01/03/2013 SELAM CALLEJAS MD Ot 305. 1 TOBACCO USE DISORDER 01/03/2013 SELAM CALLEJAS MD Ot 401. 9 HYPERTENSION NOS 01/03/2013 SELAM CALLEJAS MD Ot 414. 01 CORONARY ATHEROSCLEROSIS OF CREEK CORON 01/03/2013 SELAM CALLEJAS MD Ot 414. 4 CORONARY ATHEROSCLEROSIS DUE TO CALCIFIE 01/03/2013 SELAM CALLEJAS MD Ot 530. 81 ESOPHAGEAL REFLUX 01/03/2013 SELAM CALLEJAS MD Ot 786. 50 CHEST PAIN NOS 01/03/2013 SELAM CALLEJAS MD Ot V45. 82 PERCUTANEOUS TRANSLUM CORON ANGIOPLASTY 01/03/2013 SELAM CALLEJAS MD Ot V58. 66 LONG-TERM (CURRENT) USE OF ASPIRIN 01/03/2013 SELAM CALLEJAS MD Ot V58. 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 00 CORON ATHEROSCLER NOS TYPE VESSEL, NATIV 11/22/2015 SELAM CALLEJAS MD Ot 424. 0 MITRAL VALVE DISORDER 11/22/2015 SELAM CALLEJAS MD Ot 786. 50 CHEST PAIN NOS 11/22/2015 SELAM CALLEJAS MD Ot 414. 01 CORONARY ATHEROSCLEROSIS OF CREEK CORON 11/22/2015 SELAM CALLEJAS MD Ot 786. 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 11/22/2015 ELIZABETH ANAND APRN Ot 611.71 MASTODYNIA 11/25/2015 KIRAN CANTU Ot E78.2 MIXED HYPERLIPIDEMIA 11/25/2015 KIRAN CANTU Ot I10 ESSENTIAL (PRIMARY) HYPERTENSION 11/25/2015 KIRAN CANTU Ot I25.10 ATHSCL HEART DISEASE OF CREEK CORONARY 11/25/2015 KIRAN CANTU Ot Z72.0 TOBACCO USE 11/28/2015 KIRAN CANTU Ot E78.2 MIXED HYPERLIPIDEMIA 11/28/2015 MIYA RODGERS, KIRAN K Ot I10 ESSENTIAL (PRIMARY) HYPERTENSION 11/28/2015 ZEE CANTUTH Noemí Ot I25.10 ATHSCL HEART DISEASE OF CREEK CORONARY 11/28/2015 MIYA RODGERS, KIRAN K Ot Z72.0 TOBACCO USE 12/03/2015 MIYA RODGERS, KIRAN K Ot E78.2 MIXED HYPERLIPIDEMIA 12/03/2015 MIYA RODGERS KIRAN K Ot I10 ESSENTIAL (PRIMARY) HYPERTENSION 12/03/2015 MIYA RODGERS, KIRAN K Ot I25.10 ATHSCL HEART DISEASE OF CREEK CORONARY 12/03/2015 ZEE CANTUTH K Ot Z72.0 TOBACCO USE 12/17/2015 KIRAN CANTU Ot E78.2 MIXED HYPERLIPIDEMIA 12/17/2015 MIYA RODGERS KIRAN K Ot I10 ESSENTIAL (PRIMARY) HYPERTENSION 12/17/2015 ZEE CANTUTH K Ot I25.10 ATHSCL HEART DISEASE OF CREEK CORONARY 12/17/2015 MIYA RODGERS KIRAN K Ot Z72.0 TOBACCO USE 12/18/2015 ZEE CANTUTH K Ot E78.2 MIXED HYPERLIPIDEMIA 12/18/2015 MIYA RODGERS KIRAN K Ot I10 ESSENTIAL (PRIMARY) HYPERTENSION 12/18/2015 JONNATHAN CANTUDITH K Ot I25.10 ATHSCL HEART DISEASE OF CREEK CORONARY 12/18/2015 MIYA RODGERS KIRAN K Ot Z72.0 TOBACCO USE 09/09/2016 SELAM CALLEJAS MD Ot 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 00 CORON ATHEROSCLER NOS TYPE VESSEL, NATIV 09/09/2016 SELAM CALLEJAS MD Ot 424. 0 MITRAL VALVE DISORDER 09/09/2016 SELAM CALLEJAS MD Ot 786. 50 CHEST PAIN NOS 09/09/2016 SELAM CALLEJAS MD Ot 414. 01 CORONARY ATHEROSCLEROSIS OF CREEK CORON 09/09/2016 SELAM CALLEJAS MD Ot 786. 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 00 CORON ATHEROSCLER NOS TYPE VESSEL, NATIV 09/10/2016 SELAM CALLEJAS MD Ot 424. 0 MITRAL VALVE DISORDER 09/10/2016 SELAM CALLEJAS MD Ot 786. 50 CHEST PAIN NOS 09/10/2016 SELAM CALLEJAS MD Ot 414. 01 CORONARY ATHEROSCLEROSIS OF CREEK CORON 09/10/2016 SELAM CALLEJAS MD Ot 786. 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 00 CORON ATHEROSCLER NOS TYPE VESSEL, NATIV 09/14/2016 SELAM CALLEJAS MD Ot 424. 0 MITRAL VALVE DISORDER 09/14/2016 SELAM CALLEJAS MD Ot 786. 50 CHEST PAIN NOS 09/14/2016 SELAM CALLEJAS MD Ot 414. 01 CORONARY ATHEROSCLEROSIS OF CREEK CORON 09/14/2016 BRITTA ALONSO, SELAM Borjas Ot 786. 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 09/14/2016 ELIZABETH ANAND APRN Ot 611.71 MASTODYNIA 09/14/2016 KIRAN CANTU Ot E78.2 MIXED HYPERLIPIDEMIA 09/14/2016 KIRAN CANTU Ot I10 ESSENTIAL (PRIMARY) HYPERTENSION 09/14/2016 KIRAN CANTU Ot I25.10 ATHSCL HEART DISEASE OF CREEK CORONARY 09/14/2016 KIRAN CANTU Ot Z72.0 TOBACCO USE 09/14/2016 KIRAN CANTU Ot E78.2 MIXED HYPERLIPIDEMIA 09/14/2016 KIRAN CANTU Ot I10 ESSENTIAL (PRIMARY) HYPERTENSION 09/14/2016 KIRAN CANTU Ot I25.10 ATHSCL HEART DISEASE OF CREEK CORONARY 09/14/2016 KIRAN CANTU Ot Z72.0 TOBACCO USE 09/14/2016 KIRAN CANTU Ot E78.2 MIXED HYPERLIPIDEMIA 09/14/2016 KIRAN CANTU Ot I10 ESSENTIAL (PRIMARY) HYPERTENSION 09/14/2016 KIRAN CANTU Ot I25.10 ATHSCL HEART DISEASE OF CREEK CORONARY 09/14/2016 KIRAN CANTU Ot Z72.0 TOBACCO USE 09/14/2016 YANET ALONSO, SAY Becerra Ot C61 MALIGNANT NEOPLASM OF PROSTATE 09/16/2016 YANET ALONSO, SAY Becerra Ot C61 MALIGNANT NEOPLASM OF PROSTATE 10/07/2016 YANET ALONSO, SAY Becerra Ot C61 MALIGNANT NEOPLASM OF PROSTATE 05/26/2017 SELAM CALLEJAS MD Ot E03. 9 HYPOTHYROIDISM, UNSPECIFIED 05/26/2017 SELAM CALLEJAS MD Ot E78. 5 HYPERLIPIDEMIA, UNSPECIFIED 05/26/2017 SELAM CALLEJAS MD Ot F17.210 NICOTINE DEPENDENCE, CIGARETTES, UNCOMPL 05/26/2017 SELAM CALLEJAS MD Ot F32. 9 MAJOR DEPRESSIVE DISORDER, SINGLE EPISOD 05/26/2017 SELAM CALLEJAS MD Ot I10 ESSENTIAL (PRIMARY) HYPERTENSION 05/26/2017 SELAM CALLEJAS MD Ot I25. 10 ATHSCL HEART DISEASE OF CREEK CORONARY 05/26/2017 SELAM CALLEJAS MD Ot R07. 9 CHEST PAIN, UNSPECIFIED 05/26/2017 SELAM CALLEJAS MD Ot R09. 89 OTH SYMPTOMS AND SIGNS INVOLVING THE CIR 05/26/2017 SELAM CALLEJAS MD Ot Z79. 82 USP (CURRENT) USE OF ASPIRIN 05/26/2017 SELAM CALLEJAS MD Ot Z79.899 OTHER USP (CURRENT) DRUG THERAPY 05/26/2017 SELAM CALLEJAS MD Ot Z88. 0 ALLERGY STATUS TO PENICILLIN 05/26/2017 SELAM CALLEJAS MD Ot Z88. 2 ALLERGY STATUS TO SULFONAMIDES STATUS 05/28/2017 SELAM CALLEJAS MD Ot E03. 9 HYPOTHYROIDISM, UNSPECIFIED 05/28/2017 SELAM CALLEJAS MD Ot E78. 5 HYPERLIPIDEMIA, UNSPECIFIED 05/28/2017 SELAM CALLEJAS MD Ot F17.210 NICOTINE DEPENDENCE, CIGARETTES, UNCOMPL 05/28/2017 SELAM CALLEJAS MD Ot F32. 9 MAJOR DEPRESSIVE DISORDER, SINGLE EPISOD 05/28/2017 SELAM CALLEJAS MD Ot I10 ESSENTIAL (PRIMARY) HYPERTENSION 05/28/2017 SELAM CALLEJAS MD Ot I25. 10 ATHSCL HEART DISEASE OF CREEK CORONARY 05/28/2017 SELAM CALLEJAS MD Ot R07. 9 CHEST PAIN, UNSPECIFIED 05/28/2017 SELAM CALLEJAS MD Ot R09. 89 OTH SYMPTOMS AND SIGNS INVOLVING THE CIR 05/28/2017 SELAM CALLEJAS MD Ot Z79. 82 [place] (CURRENT) USE OF ASPIRIN 05/28/2017 SELAM CALLEJAS MD Ot Z79.899 OTHER [place] (CURRENT) DRUG THERAPY 05/28/2017 SELAM CALLEJAS MD Ot Z88. 0 ALLERGY STATUS TO PENICILLIN 05/28/2017 SELAM CALLEJAS MD Ot Z88. 2 ALLERGY STATUS TO SULFONAMIDES STATUS 05/28/2017 SELAM CALLEJAS MD Ot E03. 9 HYPOTHYROIDISM, UNSPECIFIED 05/28/2017 SELAM CALLEJAS MD Ot E78. 5 HYPERLIPIDEMIA, UNSPECIFIED 05/28/2017 SELAM CALLEJAS MD Ot F17.210 NICOTINE DEPENDENCE, CIGARETTES, UNCOMPL 05/28/2017 SELAM CALLEJAS MD Ot F32. 9 MAJOR DEPRESSIVE DISORDER, SINGLE EPISOD 05/28/2017 SELAM CALLEJAS MD Ot I10 ESSENTIAL (PRIMARY) HYPERTENSION 05/28/2017 SELAM CALLEJAS MD Ot I25. 10 ATHSCL HEART DISEASE OF CREEK CORONARY 05/28/2017 SELAM CALLEJAS MD Ot R07. 9 CHEST PAIN, UNSPECIFIED 05/28/2017 SELAM CALLEJAS MD Ot R09. 89 OTH SYMPTOMS AND SIGNS INVOLVING THE CIR 05/28/2017 SELAM CALLEJAS MD Ot Z79. 82 [place] (CURRENT) USE OF ASPIRIN 05/28/2017 SELAM CALLEJAS MD Ot Z79.899 OTHER [place] (CURRENT) DRUG THERAPY 05/28/2017 SELAM CALLEJAS MD Ot Z88. 0 ALLERGY STATUS TO PENICILLIN 05/28/2017 SELAM CALLEJAS MD Ot Z88. 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 00 CORON ATHEROSCLER NOS TYPE VESSEL, NATIV 12/29/2017 SELAM CALLEJAS MD Ot 424. 0 MITRAL VALVE DISORDER 12/29/2017 SELAM CALLEJAS MD Ot 786. 50 CHEST PAIN NOS 12/29/2017 SELAM CALLEJAS MD Ot 414. 01 CORONARY ATHEROSCLEROSIS OF CREEK CORON 12/29/2017 SELAM CALLEJAS MD Ot 786. 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 12/29/2017 ELIZABETH ANAND APRN Ot 611.71 MASTODYNIA 12/29/2017 KIRAN CANTU Ot E78.2 MIXED HYPERLIPIDEMIA 12/29/2017 KIRAN CANTU Ot I10 ESSENTIAL (PRIMARY) HYPERTENSION 12/29/2017 KIRAN CANTU Ot I25.10 ATHSCL HEART DISEASE OF CREEK CORONARY 12/29/2017 KIRAN CANTU Ot Z72.0 TOBACCO USE 12/29/2017 KIRAN CANTU Ot E78.2 MIXED HYPERLIPIDEMIA 12/29/2017 KIRAN CANTU Ot I10 ESSENTIAL (PRIMARY) HYPERTENSION 12/29/2017 KIRAN CANTU Ot I25.10 ATHSCL HEART DISEASE OF CREEK CORONARY 12/29/2017 KIRAN CANTU Ot Z72.0 TOBACCO USE 12/29/2017 YANET ALONSO, SAY Becerra Ot C61 MALIGNANT NEOPLASM OF PROSTATE 01/04/2018 DEWAYNE QUINN MD Ot 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 3 SACROCOCCYGEAL DISORDERS, NOT ELSEWHERE 01/04/2018 DEWAYNE QUINN MD, Ot M54. 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 3 SACROCOCCYGEAL DISORDERS, NOT ELSEWHERE 01/25/2018 DEWAYNE QUINN MD, Ot M54. 6 PAIN IN THORACIC SPINE 01/25/2018 DEWAYNE QUINN MD, Ot S32.010A WEDGE COMPRESSION FRACTURE OF FIRST LUMB 10/24/2018 DEWAYNE QUINN MD, Ot K42. 9 UMBILICAL HERNIA WITHOUT OBSTRUCTION OR 10/24/2018 DEWAYNE QUINN MD, Ot K57. 90 DVRTCLOS OF INTEST, PART UNSP, W/O PERF 10/24/2018 DEWAYNE QUINN MD Ot K76. 0 FATTY (CHANGE OF) LIVER, NOT ELSEWHERE C 10/24/2018 DEWAYNE QUINN MD Ot K76. 89 OTHER SPECIFIED DISEASES OF LIVER 11/14/2018 DEWAYNE QUINN MD, Ot K42. 9 UMBILICAL HERNIA WITHOUT OBSTRUCTION OR 11/14/2018 DEWAYNE QUINN MD, Ot K57. 90 DVRTCLOS OF INTEST, PART UNSP, W/O PERF 11/14/2018 DEWAYNE QUINN MD, Ot K76. 0 FATTY (CHANGE OF) LIVER, NOT ELSEWHERE C 11/14/2018 DEWAYNE QUINN MD, Ot K76. 89 OTHER SPECIFIED DISEASES OF LIVER 12/29/2018 DEWAYNE QUINN MD, Ot M47.816 SPONDYLOSIS W/O MYELOPATHY OR RADICULOPA 12/29/2018 DEWAYNE QUINN MD Ot R07. 81 PLEURODYNIA 12/29/2018 DEWAYNE QUINN MD, Ot W19.XXXA UNSPECIFIED FALL, INITIAL ENCOUNTER Procedures Code Description Performed By Per yolanda On 94.62 03/09/2011 88.56 03/10/2011 00.40 03/12/2011 00.45 03/12/2011 00.66 03/12/2011 36.07 03/12/2011 Results Test Result Range [id number] - 09/14/16 11:51 Serum or plasma urea nitrogen measurement (mass/volume ) 4 mg/dL 7-18 Serum or plasma creatinine measurement (mass/volume) 0.83 mg/dL 0.60-1.30 Serum or plasma urea nitrogen/creatinine mass ratio 5 0-20 Serum or plasma creatinine measurement w ith calculation of estimated glomerular filtration rate > NRG Automated blood complete blood count (he mogram) panel - 05/26/17 12:00 Blood leukocytes automated count (number/volume) 5.6 10*3/uL 4.3-11.0 Blood erythrocytes automated count (number/volume) 4.88 10*6/uL 4.35-5.85 Venous blood hemoglobin measurement (mass/volume) 15.4 g/dL 13.3-17.7 Blood hematocrit (volume fraction) 44 % 40-54 Automated erythrocyte mean corpuscular volume 90 [ foz_us] 80-99 Automated erythrocyte mean corpuscular h emoglobin (mass per erythrocyte) 32 pg 25-34 Automated erythrocyte mean corpuscular h emoglobin concentration measurement (mass/volume) 35 g/dL 32-36 Automated erythrocyte distribution width ratio 13. 4 % 10.0- 14.5 Automated blood platelet count (count/volume) 160 10*3/uL 130-400 Automated blood platelet mean volume measurement 9.7 [foz_us] 7.4-10.4 PT panel in platelet poor plasma by coag ulation assay - 05/26/17 12:00 Prothrombin time (PT) in platelet poor plasma by coagu lation assay 13.6 s 12.2-14.7 INR in platelet poor plasma or blood by coagulation as say 1.0 0.8-1.4 Activated partial thromboplastin time (a PTT) in platelet poor plasma bycoagulation assay - 05/26/17 12:00 Activated partial thromboplastin time (a PTT) in platelet poor plasma bycoagulation assay 28 s 24-35 Comprehensive metabolic panel - 05/26/17 12:00 Serum or plasma sodium measurement (moles/volume) 135 mmol/L 135-145 Serum or plasma potassium measurement (moles/volume) 3.8 mmol/L 3.6-5.0 Serum or plasma chloride measurement (moles/volume) 101 mmol/L 98-107 Carbon dioxide 22 mmol/L 21-32 Serum or plasma anion gap determination (moles/volume) 12 mmol/L 5-14 Serum or plasma urea nitrogen measurement (mass/volume ) 4 mg/dL 7-18 Serum or plasma creatinine measurement (mass/volume) 0.62 mg/dL 0.60-1.30 Serum or plasma urea nitrogen/creatinine mass ratio 6 NRG Serum or plasma creatinine measurement w ith calculation of estimated glomerular filtration rate > NRG Serum or plasma glucose measurement (mass/volume) 84 mg/dL 70-105 Serum or plasma calcium measurement (mass/volume) 8.5 mg/dL 8.5-10.1 Serum or plasma total bilirubin measurement (mass/volu me) 1.2 mg/dL 0.1-1.0 Serum or plasma alkaline phosphatase jose surement (enzymatic activity/volume) 92 U/L 40-136 Serum or plasma aspartate aminotransfera se measurement (enzymatic activity/volume) 100 U/L 5-34 Serum or plasma alanine aminotransferase measurement (enzymatic activity/volume) 50 U/L 0-55 Serum or plasma protein measurement (mass/volume) 7.2 g/dL 6.4-8.2 Serum or plasma albumin measurement (mass/volume) 3.7 g/dL 3.2-4.5 Lipid 1996 panel - 05/26/17 12:00 Serum or plasma triglyceride measurement (mass/volume) 58 mg/dL <150 Serum or plasma cholesterol measurement (mass/volume) 126 mg/dL < 200 Serum or plasma cholesterol in HDL measurement (mass/v olume) 51 mg/dL 40-60 Cholesterol in LDL [mass/volume] in serum or plasma by direct assay 61 mg/dL 1-129 Serum or plasma cholesterol in VLDL measurement (mass/ volume) 12 mg/dL 5-40 Methicillin resistant Staphylococcus aur eus (MRSA) screening culture - 05/26/17 12:00 Methicillin resistant Staphylococcus aureus (MRSA) scr eening culture NEG NRG Complete blood count (CBC) with automate d white blood cell (WBC) differential - 06/07/19 10:36 Blood leukocytes automated count (number/volume) 8.6 10*3/uL 4.3-11.0 Blood erythrocytes automated count (number/volume) 5.06 10*6/uL 4.35-5.85 Venous blood hemoglobin measurement (mass/volume) 14.1 g/dL 13.3-17.7 Blood hematocrit (volume fraction) 42 % 40-54 Automated erythrocyte mean corpuscular volume 83 [ foz_us] 80-99 Automated erythrocyte mean corpuscular h emoglobin (mass per erythrocyte) 28 pg 25-34 Automated erythrocyte mean corpuscular h emoglobin concentration measurement (mass/volume) 34 g/dL 32-36 Automated erythrocyte distribution width ratio 14. 7 % 10.0- 14.5 Automated blood platelet count (count/volume) 225 10*3/uL 130-400 Automated blood platelet mean volume measurement 9.5 [foz_us] 7.4-10.4 Automated blood neutrophils/100 leukocytes 63 % 42-75 Automated blood lymphocytes/100 leukocytes 21 % 12-44 Blood monocytes/100 leukocytes 14 % 0-12 Automated blood eosinophils/100 leukocytes 1 % 0-10 Automated blood basophils/100 leukocytes 0 % 0-10 Blood neutrophils automated count (number/volume) 5.4 10*3 1.8-7.8 Blood lymphocytes automated count (number/volume) 1.8 10*3 1.0-4.0 Blood monocytes automated count (number/volume) 1. 2 10*3 0.0-1.0 Automated eosinophil count 0.1 10*3/uL 0 .0-0.3 Automated blood basophil count (count/volume) 0.0 10*3/uL 0.0-0.1 Comprehensive metabolic panel - 06/07/19 10:36 Serum or plasma sodium measurement (moles/volume) 130 mmol/L 135-145 Serum or plasma potassium measurement (moles/volume) 3.8 mmol/L 3.6-5.0 Serum or plasma chloride measurement (moles/volume) 97 mmol/L 98-107 Carbon dioxide 21 mmol/L 21-32 Serum or plasma anion gap determination (moles/volume) 12 mmol/L 5-14 Serum or plasma urea nitrogen measurement (mass/volume ) 8 mg/dL 7-18 Serum or plasma creatinine measurement (mass/volume) 0.70 mg/dL 0.60-1.30 Serum or plasma urea nitrogen/creatinine mass ratio 11 NRG Serum or plasma creatinine measurement w ith calculation of estimated glomerular filtration rate > NRG Serum or plasma glucose measurement (mass/volume) 67 mg/dL 70-105 Serum or plasma calcium measurement (mass/volume) 8.9 mg/dL 8.5-10.1 Serum or plasma total bilirubin measurement (mass/volu me) 1.6 mg/dL 0.1-1.0 Serum or plasma alkaline phosphatase jose surement (enzymatic activity/volume) 107 U/L 40-136 Serum or plasma aspartate aminotransfera se measurement (enzymatic activity/volume) 39 U/L 5-34 Serum or plasma alanine aminotransferase measurement (enzymatic activity/volume) 19 U/L 0-55 Serum or plasma protein measurement (mass/volume) 7.5 g/dL 6.4-8.2 Serum or plasma albumin measurement (mass/volume) 3.8 g/dL 3.2-4.5 CALCIUM CORRECTED 9.1 mg/dL 8.5-10.1 Magnesium - 06/07/19 10:36 Magnesium 1.9 mg/dL 1.6-2.4 Serum or plasma creatine kinase measurem ent (enzymatic activity/volume) - 06/07/19 10:36 Serum or plasma creatine kinase measurem ent (enzymatic activity/volume) 208 U/L 30-200 Serum or plasma creatine kinase MB measu rement (enzymatic activity/volume) - 06/07/19 10:36 Serum or plasma creatine kinase MB measu rement (enzymatic activity/volume) 2.0 ng/mL <6.6 Myoglobin, serum - 06/07/19 10:36 Myoglobin, serum 74.3 ng/mL 10.0-92.0 PT panel in platelet poor plasma by coag ulation assay - 06/07/19 10:36 Prothrombin time (PT) in platelet poor plasma by coagu lation assay 14.2 s 12.2-14.7 INR in platelet poor plasma or blood by coagulation as say 1.1 0.8-1.4 Activated partial thromboplastin time (a PTT) in platelet poor plasma bycoagulation assay - 06/07/19 10:36 Activated partial thromboplastin time (a PTT) in platelet poor plasma bycoagulation assay 29 s 24-35 Serum or plasma amylase measurement (enz ymatic activity/volume) - 06/07/19 10:36 Serum or plasma amylase measurement (enzymatic activit y/volume) 59 U/L 25-125 Lipase - 06/07/19 10:36 Lipase 22 U/L 8-78 Serum or plasma salicylates measurement (mass/volume) - 06/07/19 10:36 Serum or plasma salicylates measurement (mass/volume) < mg/dL 5.0-20.0 Serum or plasma acetaminophen measuremen t (mass/volume) - 06/07/19 10:36 Serum or plasma acetaminophen measurement (mass/volume ) < ug/mL 10-30 Serum or plasma ethanol measurement (mas s/volume) - 06/07/19 10:36 Serum or plasma ethanol measurement (mass/volume) 36 mg/dL <10 Complete urinalysis with reflex to cultu re - 06/07/19 11:38 Urine color determination YELLOW NRG Urine clarity determination CLEAR NR G Urine pH measurement by test strip 6.0 5-9 Specific gravity of urine by test strip 1.020 1.016-1.022 Urine protein assay by test strip, semi-quantitative NEGATIVE NEGATIVE Urine glucose detection by automated test strip NE GATIVE NEGATIVE Erythrocytes detection in urine sediment by light micr oscopy TRACE-I NEGATIVE Urine ketones detection by automated test strip TR DIXON NEGATIVE Urine nitrite detection by test strip NEGATIVE NEGATIVE Urine total bilirubin detection by test strip NEGA TIVE NEGATIVE Urine urobilinogen measurement by automated test strip (mass/volume) 1.0 mg/dL < = 1.0 Urine leukocyte esterase detection by dipstick NEG ATIVE NEGATIVE Automated urine sediment erythrocyte cou nt by microscopy (number/high power field) RARE NRG Automated urine sediment leukocyte count by microscopy (number/high power field) NONE NRG Bacteria detection in urine sediment by light microsco py NEGATIVE NRG Crystals detection in urine sediment by light microsco py NONE NRG Casts detection in urine sediment by light microscopy NONE NRG Mucus detection in urine sediment by light microscopy NEGATIVE NRG Complete urinalysis with reflex to culture NO NRG Urine drug screening test - 06/07/19 11: 38 Urine phencyclidine detection by screening method NEGATIVE NEGATIVE Urine benzodiazepines detection by screening method POSITIVE NEGATIVE Urine cocaine detection NEGATIVE NEGATI VE Urine amphetamines detection by screening method N EGATIVE NEGATIVE Urine methamphetamine detection by screening method NEGATIVE NEGATIVE Urine cannabinoids detection by screening method N EGATIVE NEGATIVE Urine opiates detection by screening method POSITI VE NEGATIVE Urine barbiturates detection NEGATIVE N EGATIVE Screening urine tricyclic antidepressants detection NEGATIVE NEGATIVE Urine methadone detection by screening method NEGA TIVE NEGATIVE Urine oxycodone detection NEGATIVE NEGA TIVE Urine propoxyphene detection NEGATIVE N EGATIVE Complete blood count (CBC) with automate d white blood cell (WBC) differential - 06/08/19 02:40 Blood leukocytes automated count (number/volume) 7.1 10*3/uL 4.3-11.0 Blood erythrocytes automated count (number/volume) 4.63 10*6/uL 4.35-5.85 Venous blood hemoglobin measurement (mass/volume) 13.0 g/dL 13.3-17.7 Blood hematocrit (volume fraction) 39 % 40-54 Automated erythrocyte mean corpuscular volume 84 [ foz_us] 80-99 Automated erythrocyte mean corpuscular h emoglobin (mass per erythrocyte) 28 pg 25-34 Automated erythrocyte mean corpuscular h emoglobin concentration measurement (mass/volume) 34 g/dL 32-36 Automated erythrocyte distribution width ratio 14. 6 % 10.0- 14.5 Automated blood platelet count (count/volume) 203 10*3/uL 130-400 Automated blood platelet mean volume measurement 9.5 [foz_us] 7.4-10.4 Automated blood neutrophils/100 leukocytes 53 % 42-75 Automated blood lymphocytes/100 leukocytes 22 % 12-44 Blood monocytes/100 leukocytes 22 % 0-12 Automated blood eosinophils/100 leukocytes 3 % 0-10 Automated blood basophils/100 leukocytes 0 % 0-10 Blood neutrophils automated count (number/volume) 3.7 10*3 1.8-7.8 Blood lymphocytes automated count (number/volume) 1.5 10*3 1.0-4.0 Blood monocytes automated count (number/volume) 1. 6 10*3 0.0-1.0 Automated eosinophil count 0.2 10*3/uL 0 .0-0.3 Automated blood basophil count (count/volume) 0.0 10*3/uL 0.0-0.1 Comprehensive metabolic panel - 06/08/19 02:40 Serum or plasma sodium measurement (moles/volume) 127 mmol/L 135-145 Serum or plasma potassium measurement (moles/volume) 3.4 mmol/L 3.6-5.0 Serum or plasma chloride measurement (moles/volume) 94 mmol/L 98-107 Carbon dioxide 24 mmol/L 21-32 Serum or plasma anion gap determination (moles/volume) 9 mmol/L 5-14 Serum or plasma urea nitrogen measurement (mass/volume ) 7 mg/dL 7-18 Serum or plasma creatinine measurement (mass/volume) 0.68 mg/dL 0.60-1.30 Serum or plasma urea nitrogen/creatinine mass ratio 10 NRG Serum or plasma creatinine measurement w ith calculation of estimated glomerular filtration rate > NRG Serum or plasma glucose measurement (mass/volume) 106 mg/dL 70-105 Serum or plasma calcium measurement (mass/volume) 8.3 mg/dL 8.5-10.1 Serum or plasma total bilirubin measurement (mass/volu me) 2.0 mg/dL 0.1-1.0 Serum or plasma alkaline phosphatase jose surement (enzymatic activity/volume) 95 U/L 40-136 Serum or plasma aspartate aminotransfera se measurement (enzymatic activity/volume) 31 U/L 5-34 Serum or plasma alanine aminotransferase measurement (enzymatic activity/volume) 16 U/L 0-55 Serum or plasma protein measurement (mass/volume) 6.8 g/dL 6.4-8.2 Serum or plasma albumin measurement (mass/volume) 3.5 g/dL 3.2-4.5 CALCIUM CORRECTED 8.7 mg/dL 8.5-10.1 Manual absolute plasma cell count - 05/27 05/18 02:40 Blood monocytes/100 leukocytes 22 % NRG Manual blood segmented neutrophils/100 leukocytes 46 % NRG Blood band neutrophils/100 leukocytes 1 % NRG Manual blood lymphocytes/100 leukocytes 29 % NRG Manual eosinophils/100 leukocytes in nose 2 % NRG Blood erythrocyte morphology finding identification NORMAL NRG Serum or plasma renal function panel (Na , K, Cl, CO2, BUN, Cr, glucose,Ca, phos, alb) - 06/09/19 00:32 Serum or plasma sodium measurement (moles/volume) 129 mmol/L 135-145 Serum or plasma potassium measurement (moles/volume) 3.9 mmol/L 3.6-5.0 Serum or plasma chloride measurement (moles/volume) 97 mmol/L 98-107 Carbon dioxide 23 mmol/L 21-32 Serum or plasma anion gap determination (moles/volume) 9 mmol/L 5-14 Serum or plasma urea nitrogen measurement (mass/volume ) 6 mg/dL 7-18 Serum or plasma creatinine measurement (mass/volume) 0.63 mg/dL 0.60-1.30 Serum or plasma urea nitrogen/creatinine mass ratio 10 NRG Serum or plasma creatinine measurement w ith calculation of estimated glomerular filtration rate > NRG Serum or plasma glucose measurement (mass/volume) 114 mg/dL 70-105 Serum or plasma calcium measurement (mass/volume) 8.4 mg/dL 8.5-10.1 Serum or plasma albumin measurement (mass/volume) 3.5 g/dL 3.2-4.5 Serum or plasma phosphate measurement (mass/volume) 2.1 mg/dL 2.3-4.7 Magnesium - 06/09/19 00:32 Magnesium 2.0 mg/dL 1.6-2.4 Serum or plasma renal function panel (Na , K, Cl, CO2, BUN, Cr, glucose,Ca, phos, alb) - 06/09/19 04:25 Serum or plasma sodium measurement (moles/volume) 129 mmol/L 135-145 Serum or plasma potassium measurement (moles/volume) 4.0 mmol/L 3.6-5.0 Serum or plasma chloride measurement (moles/volume) 96 mmol/L 98-107 Carbon dioxide 23 mmol/L 21-32 Serum or plasma anion gap determination (moles/volume) 10 mmol/L 5-14 Serum or plasma urea nitrogen measurement (mass/volume ) 7 mg/dL 7-18 Serum or plasma creatinine measurement (mass/volume) 0.66 mg/dL 0.60-1.30 Serum or plasma urea nitrogen/creatinine mass ratio 11 NRG Serum or plasma creatinine measurement w ith calculation of estimated glomerular filtration rate > NRG Serum or plasma glucose measurement (mass/volume) 106 mg/dL 70-105 Serum or plasma calcium measurement (mass/volume) 8.6 mg/dL 8.5-10.1 Serum or plasma albumin measurement (mass/volume) 3.6 g/dL 3.2-4.5 Serum or plasma phosphate measurement (mass/volume) 2.5 mg/dL 2.3-4.7 Encounters ACCT No. Visit Date/Time Discharge Status Pt. Type Provider Facility Loc./Unit Complaint [id number] 12/05/2018 15:19:00 23:59:59 CLS Outpatient DEWAYNE QUINN MD [facility] RAD FELL,RIB PAIN [id number] 10/20/2018 13:39:00 23:59:59 CLS Outpatient DEWAYNE QUINN MD [facility] RAD INTRACTABLE ABD PAIN,NAUSEA,VOMITING,ALCHOLISM [id number] 10/06/2018 14:30:00 019 23:59:59 CLS Outpatient DEWAYNE QUINN MD [facility] RAD RIB PAIN [id number] 12/29/2017 10:15:00 018 23:59:59 CLS Outpatient DEWAYNE QUINN MD [facility] RAD BACK PAIN [id number] 05/26/2017 10:40:00 018 19:12:00 DIS Outpatient SELAM CALLEJAS MD [facility] CATH CP,SOB,HTN [id number] 09/14/2016 11:21:00 017 23:59:59 CLS Outpatient SAY HOLT MD [facility] CARD CA PROSTATE [id number] 11/27/2015 11:26:00 016 23:59:59 CLS Outpatient LAKEISHA CANTU [facility] CARD CAD,HTN,HLP [id number] 11/22/2015 12:49:00 016 23:59:59 CLS Outpatient LAKEISHA CANTU [facility] CARD CAD,HTN,HLP [id number] 12/07/2014 08:58:00 015 23:59:59 CLS Outpatient ELIZABETH ANAND APRN [facility] RAD LEFT BREAST JUAN ANTONIO N [id number] 08/18/2013 13:46:00 014 23:59:59 CLS Outpatient CANDIDO ESCALANTE MD [facility] RAD FALL TRAUMA TO HEAD [id number] 03/27/2013 13:17:00 013 23:59:59 CLS Outpatient CANDIDO ESCALANTE MD [facility] RAD LEFT SIDE TINGLING,SPASTICITY [id number] 01/03/2013 10:28:00 013 17:00:00 DIS Outpatient SELAM CALLEJAS MD [facility] CATH CHEST PAIN,CAD,HTN,SOB [id number] 12/06/2012 11:56:00 23:59:59 CLS Outpatient SELAM CALLEJAS MD [facility] RAD CP,CAD [id number] 12/01/2012 07:53:00 23:59:59 CLS Outpatient SELAM CALLEJAS MD [facility] CARD CP,CAD [id number] 06/07/2019 13:30:[address] Inpatient SHANTI FUNES DO [facility] 4TH S/P FALL;R RIB FRACTURES;SMA LL R HEMOTHORAX [id number] 11/22/2015 12:49:00 Document Registration [id number] 05/31/2014 10:04:00 Document Registration [id number] 03/09/2011 16:09:00 Document Registration [id number] 03/09/2011 13:47:00 Document Registration [id number] 02/23/2011 10:43:00 Document Registration
[2019-06-09] MEDS ORDERED: ENOXAPARIN 40 MG/0.4 ML (LOVENOX) SYR SC SCH (06:00)
[2019-06-09 08:00] VITALS: BP 168/85
[2019-06-09] MEDS: diphenhydrAMINE 25 MG TAB (BENADRYL) PO PRN (08:14)
[2019-06-09] MEDS: PANTOPRAZOLE 40 MG (PROTONIX) TAB PO SCH (08:14)
[2019-06-09] MEDS: FOLIC ACID 1 MG TAB PO SCH (08:15)
[2019-06-09] MEDS: THIAMINE INJECTION 100 MG, FOLIC ACID INJECTION 1 MG, MAGNESIUM SULFATE 2 GM, VITAMIN M... IV SCH ×5 (10:03)
--- NOTE | 2019-06-09 10:04 | Physical Therapy Daily Note ---
PT Daily Note-Current Subjective Patient agrees to PT. Pain Numeric Pain Scale: 5-Moderate Pain Location: Right Location Body Site: Side Pain Description: Acute Mental Status Patient Orientation: Normal For Age Transfers SCALE: Activities may be completed with or without assistive devices. 7-Ojxpugxgqi-giaaekd completes the activity by him/herself with no assistance from a helper. 5-Set-up or Clean-up Assistance-helper sets up or cleans up; patient completes activity. [place] assists only prior to or following the activity. 4-Supervision or Touching Assistance-helper provides verbal cues and/or touching/steadying and/or contact guard assistance as patient completes activity. Assistance may be provided throughout the activity or intermittently. 3-Partial/Moderate Assistance-helper does LESS THAN HALF the effort. Allen lifts, holds or supports trunk or limbs, but provides less than half the effort. 2-Substantial/Maximal Assistance-helper does MORE THAN HALF the effort. Allen lifts or holds trunk or limbs and provides more than half the effort. 4-Miiglxxaj-zdperv does ALL the effort. Patient does none of the effort to complete the activity. Or, the assistance of 2 or more helpers is required for the patient to complete the activity. If activity was not attempted, code reason: 7-Patient Refused. 9-Not Applicable-not attempted and the patient did not perform the activity before the current illness, exacerbation or injury. 10-Not Attempted due to Environmental Limitations-(lack of equipment, weather restraints, etc.). 88-Not Attempted due to Medical Conditions or Safety Concerns. Roll Left & Right (QC): 6 Sit to Lying (QC): 6 Lying to Sitting/Side of Bed(Q: 6 Sit to Stand (QC): 6 Chair/Gbr-te-Czira Xfer(QC): 6 log roll for bed mobility Gait Training Does the Patient Walk?: Yes Distance: 400' Walk 10 feet (QC): 6 Walk 50 ft with 2 Turns(QC): 6 Walk 150 ft (QC): 6 Gait Assistive Device: Walker 4 Wheeled slow, steady, functional gait sequence Stair Training Stair Training: Handrails/: 2 handrails #of Steps: 12 1 Step (curb) (QC): 5 4 Steps (QC): 5 12 Steps (QC): 5 Stairs: Pattern: Step to Assessment Patient tolerated treatment well and remains up in recliner with needs met. Patient is able to perform all gross motor skills without difficulty. Patient does require time to complete all functional tasks. PT Fci Goals Fci Goals PT Sheetrock Applicator Goals Time Frame: Jun 17, 2019 Roll Left & Right (QC): 6 Sit to Lying (QC): 6 Lying-Sitting on Side/Bed(QC): 6 Sit to Stand (QC): 6 Chair/Byz-uz-Lnvit Xfer(QC): 6 Toilet Transfer (QC): 6 Does the Patient Walk: Yes Walk 10 feet (QC): 6 Walk 50ft with 2 Turns (QC): 6 Walk 150 ft (QC): 6 PT Plan Treatment/Plan Treatment Plan: Continue Plan of Care Treatment Plan: Bed Mobility, Education, Functional Activity Dirk, Functional Strength, Gait, Safety, Therapeutic Exercise, Transfers Treatment Duration: Jun 17, 2019 Frequency: 6 times per week Estimated Hrs Per Day: .25 hour per day Patient and/or Family Agrees t: Yes Time/GCodes Time In: 926 Time Out: 950 Total Billed Treatment Time: 24 Total Billed Treatment 1 visit FA 13 min GT 11 min LINA DELANEY PT Jun 09, 2019 10:04
--- NOTE | 2019-06-09 10:26 | Occupational Ther Daily Note ---
OT Current Status-Daily Note Subjective Pt sitting in chair, agrees to therapy. Pt reports rib pain. ADL-Treatment Pt refused bathing or dressing this morning. States he showered yesterday afternoon and was able to complete most of task independently. Pt does agree to grooming, but requires increased time to participate. Sit to stand without assist. Gait to restroom with 4WW. Pt moves slowly and requires increased time for mobility. Pt stood at sink to complete oral care. Pt was able to complete with increased time after set up. Pt returned to chair with slow pace, but no LOB noted. Pt sitting in chair with needs met after session. Therapy Code Descriptions/Definitions Functional [place] Measure: 0=Not Assessed/NA 4=Minimal Assistance 1=Total Assistance 5=Supervision or Setup 2=Maximal Assistance 6=Modified [place] 3=Moderate Assistance 7=Complete IndependenceSCALE: Activities may be completed with or without assistive devices. 0-Wipeiccyws-rhcngjh completes the activity by him/herself with no assistance from a helper. 5-Set-up or Clean-up Assistance-helper sets up or cleans up; patient completes a ctivity. [place] assists only prior to or following the activity. 4-Supervision or Touching Assistance-helper provides verbal cues and/or touching/steadying and/or contact guard assistance as patient completes activity. Assistance may be provided throughout the activity or intermittently. 3-Partial/Moderate Assistance-helper does LESS THAN HALF the effort. [place] lifts, holds or supports trunk or limbs, but provides less than half the effort. 2-Substantial/Maximal Assistance-helper does MORE THAN HALF the effort. [place] lifts or holds trunk or limbs and provides more than half the effort. 6-Ktbixssdx-liwrxk does ALL the effort. Patient does none of the effort to complete the activity. Or, the assistance of 2 or more helpers is required for the patient to complete the activity. If activity was not attempted, code reason: 7-Patient Refused. 9-Not Applicable-not attempted and the patient did not perform the activity before the current illness, exacerbation or injury. 10-Not Attempted due to Environmental Limitations-(lack of equipment, weather restraints, etc.). 88-Not Attempted due to Medical Conditions or Safety Concerns. Oral Hygiene (QC): 5 Education OT Patient Education: Safety issues Teaching Recipient: Patient Teaching Methods: Discussion Response to Teaching: Verbalize Understanding, Reinforcement Needed OT Transfer Operator Goals Transfer Operator Goals Time Frame: Jun 15, 2019 Eating (QC): 6 Oral Hygiene (QC): 6 Toileting Hygiene (QC): 6 Shower/Bathe Self (QC): 5 Upper Body Dressing (QC): 5 Lower Body Dressing (QC): 5 On/Off Footwear (QC): 5 Additional Goals: 1-Demonstrate ADL Tasks, 2-Verbalize Understanding, 3- ImproveStrength/Dirk 1=Demonstrate adherence to instructed precautions during ADL tasks. 2=Patient will verbalize/demonstrate understanding of assistive devices/modifications for ADL. 3=Patient will improve strength/tolerance for activity to enable patient to perform ADL's. OT Education/Plan Discharge Recommendations Plan/Recommendations: Continue POC Treatment Plan/Plan of Care Patient would benefit from OT for education, treatment and training to promote independence in ADL's, mobility, safety and/or upper extremity function for ADL's. Plan of Care: ADL Retraining, Functional Mobility, UE Funct Exercise/Act Treatment Duration: Jun 15, 2019 Frequency: 5 times per week Rehab Potential: Fair Time/GCodes Start Time: 09:50 Stop Time: 10:14 Total Time Billed (hr/min): 24 Billed Treatment Time 1 visit, ADLx2(24minutes) SARAH BARBOSA OT Jun 09, 2019 10:26
--- NOTE | 2019-06-09 11:07 | NUR ---
CM/SS: Visited with pt as to plan for discharge Plan: Pt will return home and declines home care at this time Summary: Pt reports feeling better and that he is ready to go home. This worker shares with pt that the physician will need to check labs and if all is well he will be able to go home today. Pt seems eager to return home. Pt reports a neighbor or his "" can pick him up after 2pm today. This worker shared that once it was determined if he would be going home pt's daughter Sparkle will be notified. Pt was ok with that.
[2019-06-09 12:00] VITALS: BP 151/78
[2019-06-09] MEDS ORDERED: OXYC10TA7 PO (12:01)
--- NOTE | 2019-06-09 12:05 | Discharge Summary ---
Discharge Summary Hospital Course Was the Problem List Reviewed?: Yes Problems/Dx: (1) Intractable pain Status: Acute (2) Hypothyroid Status: Chronic (3) HTN (hypertension) Status: Chronic Qualifiers: Qualified Codes: I10 - Essential (primary) hypertension (4) Fall at home Qualifiers: Qualified Codes: W19.XXXD - Unspecified fall, subsequent encounter; Y92.009 - Unspecified place in unspecified non-institutional (private) residence as the place of occurrence of the external cause (5) Alcohol abuse Status: Chronic (6) Chronic hyponatremia Status: Chronic Hospital Course Date of Admission: Jun 07, 2019 at 13:30 Admission Diagnosis : Family Physician/Provider: Alejandro Quinn MD Date of Discharge: 06/09/19 Discharge Diagnosis: [ ] Hospital Course: [ ] Labs and Pending Lab Test: Laboratory Tests 06/09/19 00:32: Sodium Level 129L, Potassium Level 3.9, Chloride Level 97L, Carbon Dioxide Level 23, Anion Gap 9, Blood Urea Nitrogen 6L, Creatinine 0.63, Estimat Glomerular Filtration Rate > 60, BUN/Creatinine Ratio 10, Glucose Level 114H, Calcium Level 8.4L, Phosphorus Level 2.1L, Magnesium Level 2.0, Albumin 3.5 06/09/19 04:25: Sodium Level 129L, Potassium Level 4.0, Chloride Level 96L, Carbon Dioxide Level 23, Anion Gap 10, Blood Urea Nitrogen 7, Creatinine 0.66, Estimat Glomerular Filtration Rate > 60, BUN/Creatinine Ratio 11, Glucose Level 106H, Calcium Level 8.6, Phosphorus Level 2.5, Albumin 3.6 Home Meds Active Oxycodone HCl 10 Mg Tablet 10 Mg PO Q12H 7 Days Reported Oxybutynin Chloride 5 Mg Tablet 5 Mg PO BID Coreg (Carvedilol) 6.25 Mg Tablet 6.25 Mg PO BID Levothyroxine Sodium 200 Mcg Tablet 100 Mcg PO DAILY TAKES OF A 200MCG TO EQUAL 100MCG DAILY Atorvastatin Calcium 10 Mg Tablet 10 Mg PO HS Omeprazole 20 Mg Capsule.dr 20 Mg PO DAILY Ibuprofen 200 Mg Tablet 600 Mg PO Q8H PRN Aspirin EC (Aspirin) 81 Mg Tablet.dr 81 Mg PO DAILY Lexapro (Escitalopram Oxalate) 20 Mg Tablet 40 Mg PO DAILY Assessment/Pt Instructions follow up in 2 weeks at [facility] -start with taking 1/2 tablet of oxycodone [id number] for pain. Rib fracture pain should be more manageable in 1 week and not require opioids. -reduced alcohol drinking to 1-2 drinks daily. -you may salt your food. Discharge Planning: <30 minutes discharge planning Discharge Instructions Discharge Diet: Eat Small Frequent Meals Activity as Tolerated: Yes Discharge Physical Examination Vital Signs Vital Signs Date Time Temp Pulse Resp B/P (MAP) Pulse Ox O2 Delivery O2 Flow Rate FiO2 06/09/19 09:00 93 Room Air 2.00 06/09/19 08:00 36.9 58 20 168/85 (112) General Appearance: No Apparent Distress HEENT: PERRL/EOMI Respiratory: Chest Non Tender, Lungs Clear, Normal Breath Sounds Cardiovascular: Regular Rate, Rhythm Gastrointestinal: Soft Extremity: Non Tender Skin: Warm/Dry Neurologic/Psychiatric: Alert, Oriented x3 Allergies: Coded Allergies: Penicillins (Unverified Allergy, Unknown, 03/09/11) Sulfa (Sulfonamide Antibiotics) (Verified Allergy, Unknown, 06/07/19) Discharge Summary Date of Admission Jun 07, 2019 at 13:30 Date of Discharge Discharge Diagnosis (1) Intractable pain Status: Acute (2) Hypothyroid Status: Chronic Assessment & Plan: continue levothyroxine (3) HTN (hypertension) Status: Chronic Qualifiers: Qualified Codes: I10 - Essential (primary) hypertension (4) Fall at home Qualifiers: Qualified Codes: W19.XXXD - Unspecified fall, subsequent encounter; Y92.009 - Unspecified place in unspecified non-institutional (private) residence as the place of occurrence of the external cause (5) Alcohol abuse Status: Chronic (6) Chronic hyponatremia Status: Chronic Assessment & Plan: worsened by 1/2 NS IVF overnight changed to NS. Clinical Quality Measures DVT/VTE Risk/Contraindication: Risk Factor Score Per Nursin RFS Level Per Nursing on Admit: 4+=Very High ALEJANDRO QUINN MD Jun 09, 2019 12:05
== END 2019-06-09 13:43 | disposition home or self-care (01) | DRG 200 ==
LOC: EDUNIT# 09:56 → ER 09:58 → ICU 13:30 → 4TH 06-08 09:21
PROVIDERS: ADMIT Surgery; ATTEND Surgery
DX: S27.1XXA Traumatic hemothorax, initial encounter (principal); S22.41XA Multiple fractures of ribs, right side, initial encounter for closed fracture; E87.1 Hypo-osmolality and hyponatremia; R51 Headache; M79.661 Pain in right lower leg; M54.9 Dorsalgia, unspecified; R11.0 Nausea; R32 Unspecified urinary incontinence; F10.20 Alcohol dependence, uncomplicated; J44.9 Chronic obstructive pulmonary disease, unspecified; I25.10 Atherosclerotic heart disease of native coronary artery without angina pectoris; I10 Essential (primary) hypertension; E78.00 Pure hypercholesterolemia, unspecified; K29.70 Gastritis, unspecified, without bleeding; K57.90 Diverticulosis of intestine, part unspecified, without perforation or abscess without bleeding; K58.9 Irritable bowel syndrome, unspecified; K64.9 Unspecified hemorrhoids; M19.91 Primary osteoarthritis, unspecified site; F41.9 Anxiety disorder, unspecified; F32.9 Major depressive disorder, single episode, unspecified; E89.0 Postprocedural hypothyroidism; Y92.009 Unspecified place in unspecified non-institutional (private) residence as the place of occurrence of the external cause; W18.09XA Striking against other object with subsequent fall, initial encounter; Z87.891 Personal history of nicotine dependence; Z95.5 Presence of coronary angioplasty implant and graft; Z79.82 Long term (current) use of aspirin; Z79.1 Long term (current) use of non-steroidal anti-inflammatories (NSAID)
CPT/HCPCS: 36415; 70450; 71045; 71260; 72125; 72128; 72131; 73552; 73562; 73590; 73610; 73630; 74177; 80053; 80069; 80306; 80320; 80329; 81000; 82150; 82550; 82553; 83690; 83735; 83874; 85007; 85025; 85027; 85610; 85730; 93041

== ENCOUNTER → 2020-02-28 | Day surgery (SDC) | payer MEDICARE, OTHER ==
[~2020-02-28] MED LIST changes: +ASPI-1238 PO; +ATOR10TA66 PO; +CARV6.25 PO; +IBUP-2473 PO; +LEVO200T6 PO; +LIDOCAINE 1% INJ 20 ML 20 ML VIAL INJ ONE; +OMEP20CA18 PO; +OXYB5TAB13 PO; +OXYC10TA7 PO
--- NOTE | 2020-02-28 14:38 | Diagnostic Imaging Report ---
INDICATION: Right parotid mass. Patient presents for ultrasound-guided fine-needle aspiration. FINDINGS: Patient was brought to the procedure room, placed in bed in a jrju-dqgc-dvlj decubitus position. Ultrasound imaging of the right parotid region was performed. There is a solid, partially calcified mass in the region of the right parotid gland. The skin was prepped and draped in the usual sterile fashion. A small amount of 1% lidocaine was utilized for local anesthesia. Multiple passes were made into the solid mass utilizing 25-gauge needles and fine-needle aspiration technique. In addition, a single pass was performed with a Rotex needle and a Rotex biopsy was performed. Hemostasis was obtained using manual compression. Patient tolerated the procedure well and left the department in stable condition. IMPRESSION: Successful ultrasound-guided fine-needle aspiration and Rotex biopsy of the solid mass in the right parotid gland. Pathology results are currently pending. Dictated by: Dictated on workstation # [id number]
--- NOTE | 2020-02-28 15:25 | Diagnostic Imaging Report ---
INDICATION: Right parotid nodule. Sonographic interrogation of the right neck in the region of the right parotid was performed. There is a solid mass at this location with associated calcifications measuring 1.6 x 1.2 x 1.6 cm. No definite internal blood flow is present. No other abnormalities are seen. IMPRESSION: Partially calcified solid mass in the region of the right parotid gland. The patient is here for tissue sampling. Additional consideration could be given to performance of a CT soft tissue neck with IV contrast for better characterization. Dictated by: Dictated on workstation # [id number]
== END ==
LOC: RAD 12:20
PROVIDERS: ATTEND Otolaryngology
DX: C07 Malignant neoplasm of parotid gland (principal); Z88.0 Allergy status to penicillin; Z88.2 Allergy status to sulfonamides
CPT/HCPCS: 76536

== ENCOUNTER → 2020-03-01 | Outpatient (CLI) | payer MEDICARE, OTHER ==
[~2020-03-01] MED LIST changes: -LIDOCAINE 1% INJ 20 ML 20 ML VIAL INJ ONE
--- NOTE | 2020-03-01 13:36 | Diagnostic Imaging Report ---
PROCEDURE: MRI lumbar spine. TECHNIQUE: Multiplanar, multisequence MRI of the lumbar spine was performed without contrast. INDICATION: Back pain. History of previous compression fracture. COMPARISON: None. FINDINGS: For the purposes of this exam, last well-formed disc space is denoted to be L5-S1 level. Static alignment is maintained. There is no significant anteroretrolisthesis. There is no evidence of jumped facets. Acute fracture of the L4 vertebral body is identified. Fracture line parallels the superior endplate and extends to involve both the anterior and posterior vertebral body gallego. There is slight buckling of the posterior superior corner of the L4 vertebral body. No retropulsed fracture fragments are identified. There is no involvement of the posterior elements. As a result, there is approximately 15-20% vertebral body height loss. Chronic compression deformity of L1 is also identified. Patient appears to be status post previous cement augmentation. Additionally, there is multilevel intervertebral disc height loss, greatest at L5-S1. Multilevel anterior and posterior disc bulges are present. Visualized portions of the distal cord are unremarkable. Conus terminates at approximately the L1 level. No abnormal intrathecal filling defects are seen. Pre and paravertebral soft tissue structures are unremarkable. Axial images demonstrate the following: T12-L1: There is no large disc bulge or focal protrusion. There is however mild retropulsion of the posterior superior vertebral body wall. This does result in mild narrowing of the spinal canal. Neural foramen are unremarkable. L1-L2: There is no large disc bulge or focal protrusion. There is mild bilateral ligamentum flavum laxity and facet arthropathy, but no significant spinal canal or neuroforaminal stenosis. L2-L3: There is mild broad-based posterior disc bulge and bilateral ligamentum flavum laxity and facet arthropathy. As a result, there is mild narrowing of the spinal canal and bilateral neural foramen. L3-L4: There is broad-based posterior disc bulge with bilateral ligamentum flavum laxity and facet arthropathy. As a result, there is mild narrowing of dino spinal canal and bilateral neural foramen. L4-L5: There is no large disc bulge or focal protrusion. There is bilateral ligamentum flavum laxity and facet arthropathy. There is no significant spinal canal stenosis. Mild bilateral neuroforaminal narrowing is present. L5-S1: There is broad-based posterior disc bulge with small superimposed central posterior disc protrusion. There is also bilateral facet arthropathy. As a result, there is [id number]-[id number]-[id number] narrowing of the bilateral neural foramen and mild narrowing of the spinal canal. IMPRESSION: 1. Acute fracture of L4. This may be amenable to kyphoplasty. 2. Old compression deformity of L1. 3. Mild multilevel degenerative changes. Dictated by: Dictated on workstation # [id number]
== END ==
LOC: RAD 10:47
PROVIDERS: ATTEND Orthopaedic Surgery
DX: S32.040A Wedge compression fracture of fourth lumbar vertebra, initial encounter for closed fracture (principal); S32.010A Wedge compression fracture of first lumbar vertebra, initial encounter for closed fracture; M51.36 Other intervertebral disc degeneration, lumbar region; M51.37 Other intervertebral disc degeneration, lumbosacral region; X58.XXXA Exposure to other specified factors, initial encounter
CPT/HCPCS: 72148

== ENCOUNTER → 2020-03-12 | Outpatient (CLI) | payer MEDICARE, OTHER ==
--- NOTE | 2020-03-12 13:24 | Diagnostic Imaging Report ---
INDICATION: Osteoporosis. COMPARISON: None. FINDINGS: The bone mineral density of the spine and left hip was measured. There is orthopedic hardware in place on the right. The T-score for the spine is -3.3. This does indicate osteoporosis. The total T-score for the left hip is -3.1 and for the left femoral neck -3.9. These values also fall within the range of osteoporosis. AP Spine L1-L4: [BMD (g/cm2): 0.842] [T-Score: -3.3] [Z-Score: -2.2] [BMD Previous: NA] [BMD % Change: NA] LT Hip Neck: [BMD (g/cm2): 0.557] [T-Score: -3.9] [Z-Score: -2.2] LT Hip Total: [BMD (g/cm2):0.648] [T-Score:-3.1] [Z-Score: -1.9] [BMD Previous: NA] [BMD % Change: NA] RT Hip Neck: [BMD (g/cm2):NA] [T-Score:NA] [Z-Score:NA] RT Hip Total: [BMD (g/cm2):NA] [T-score:NA] [Z-Score:NA] [BMD Previous:NA] [BMD % Change:NA] *Indicates significant change from prior examination based on 95% confidence level. World Health Organization criteria for BMD interpretation classify patients as Normal (T-score at or above -1.0), Osteopenic (T-score between -1.0 and -2.5) or Osteoporotic (T-score at or below -2.5). LIMITATIONS AND MODIFICATION: None. FRACTURE RISK (FRAX SCORE): The ten year probability of (%): Major Osteoporotic Fracture: [28.6] Hip Fracture: [20.0] IMPRESSION: 1. The bone mineral density of the spine and the left hip and left femoral neck does indicate osteoporosis. 2. The bone mineral density of the right hip could not be measured due to the presence of orthopedic hardware. 3. See below National Osteoporosis Foundation guidelines on when to potentially initiate pharmacologic therapy. Based on the National Osteoporosis Foundation Guidelines, pharmacologic treatment should be initiated in any of the following, unless clinical conditions suggest otherwise: * Any patient with prior fragility fracture of the hip or vertebrae. A spine fracture indicates 5X risk for subsequent spine fracture and 2X risk for subsequent hip fracture. * Osteoporosis (T-score <-2.5). * Postmenopausal women and men age 50 and older with low bone mass/osteopenia (T-score between -1.0 and -2.5) by DXA and 10-year major osteoporotic fracture greater than 20% or a 10-year probability of hip fracture greater than 3%. These fracture risks are supplied above in the FRAX score, if applicable. * Clinician judgement and/or patient preferences may indicate treatment for people with 10-year fracture probabilities above or below these levels. Dictated by: Dictated on workstation # [id number]
== END ==
LOC: RAD 11:50
PROVIDERS: ATTEND Orthopaedic Surgery Orthopaedic Surgery of the Spine
DX: S32.040A Wedge compression fracture of fourth lumbar vertebra, initial encounter for closed fracture (principal); X58.XXXA Exposure to other specified factors, initial encounter
CPT/HCPCS: 77080

== ENCOUNTER → 2020-03-26 | Outpatient (CLI) | payer MEDICARE, OTHER ==
--- NOTE | 2020-03-26 13:08 | Diagnostic Imaging Report ---
PROCEDURE: US carotid duplex, bilateral. TECHNIQUE: Multiple real-time grayscale images were obtained over the carotid arteries in various projections, bilaterally. Additional spectral analysis and color Doppler duplex images were also obtained. INDICATION: History of hypertension. History of smoking. History of heart catheterization. Evaluate for carotid stenosis. COMPARISON: None. FINDINGS: Right carotid circulation: The right common carotid artery is normal in course and caliber. Atherosclerotic plaque is seen in the right carotid system. No hemodynamically significant stenosis is present. Left carotid circulation: The left common carotid artery is normal in course and caliber. Intimal thickening and atherosclerotic plaque is seen in the left common carotid artery. There is atherosclerotic plaque in the left carotid bulb and proximal left internal carotid artery. No hemodynamically significant stenosis is present. Flow in the bilateral vertebral arteries is antegrade. IMPRESSION: 1. Bltz-as-ddjjfqqc atherosclerosis involving the bilateral carotid systems. 2. No sonographic evidence of hemodynamically significant stenosis based on flow velocity criteria. Parameters based on the consensus panel Cooper-Scale and Doppler ultrasound criteria published January 2003, Radiology, Volume 229. DOPPLER (peak systolic velocity M/S Right Left CCA 1.20 1.09 ICA Proximal 0.78 0.74 ICA Mid 0.75 0.66 ICA Distal 0.71 0.68 RATIO 0.65 0.68 ECA 1.47 0.94 VERT 0.53 0.51 Dictated by: Dictated on workstation # [id number]
== END ==
LOC: RAD 09:27
PROVIDERS: ATTEND Otolaryngology
DX: I65.23 Occlusion and stenosis of bilateral carotid arteries (principal); K11.8 Other diseases of salivary glands
CPT/HCPCS: 93880

== ENCOUNTER → 2020-04-02 | Outpatient (CLI) | payer MEDICARE, OTHER ==
[~2020-04-02] VITALS: Ht 160 cm; Wt 63.0 kg
[~2020-04-02] MED LIST changes: +CATHETER FLUSH 10 ML SYR IV PRN; +REGADENOSON 0.4 MG/5 ML SYR (LEXISCAN) IV ONE
[2020-04-02 13:10] VITALS: BP 127/70
--- NOTE | 2020-04-03 15:04 | STRESS TEST ---
DATE OF SERVICE: 04/02/2020 RESTING AND POST REGADENOSON TECHNETIUM-99M TETROFOSMIN SPECT CT IMAGING ORDERING PHYSICIAN: Kayleen Cano APRN. PRIMARY PHYSICIAN: Dr. Lisa Ramos. CLINICAL DIAGNOSIS: Coronary artery disease. Baseline images were carried out after injection of 9.77 mCi of technetium-99m Tetrofosmin. This was followed by 0.4 mg Regadenoson and 32.4 mCi of technetium-99m Tetrofosmin for stress imaging. The electrocardiogram showed sinus rhythm at baseline and the electrocardiogram did not change significantly with the Regadenoson infusion. The patient tolerated the procedure well. Review of images at rest and following stress does not indicate any significant perfusion defects consistent with myocardial ischemia or infarction. Gated images show normal global left ventricular systolic function with a normal regional wall motion. Left ventricular ejection fraction is calculated to be 79%. Left ventricular end diastolic volume is 45 mL. TID is absent (1.03). CONCLUSIONS: 1. No evidence of any significant myocardial ischemia or infarction on this study. 2. Normal regional wall motion. 3. Normal to hyperdynamic left ventricular systolic function with a calculated ejection fraction of 79%. Job ID: [id number] DocumentID: [id number] Dictated Date: 04/03/2020 14:52:21 [employer]visor [employer] Date: 04/03/2020 15:03:09 Dictated By: MIGUEL CASTAÑEDA MD, MA, FACP, FACC,
== END ==
LOC: CARD 03-15 08:15
PROVIDERS: ATTEND Nurse Practitioner Family
DX: I25.10 Atherosclerotic heart disease of native coronary artery without angina pectoris (principal)
CPT/HCPCS: 78452; 93017; A9502

== ENCOUNTER 2020-05-23 14:39 | Emergency (ER) | payer MEDICARE, OTHER ==
[~2020-05-23] VITALS: Ht 160 cm; Wt 59.8 kg
[~2020-05-23 14:39] MED LIST changes: -CATHETER FLUSH 10 ML SYR IV PRN; -REGADENOSON 0.4 MG/5 ML SYR (LEXISCAN) IV ONE
[2020-05-23] MEDS ORDERED: NS IV 1000 ML 1,000 ML IV SCH ×2 (15:00→15:45)
[2020-05-23 15:04] LABS: BASOPHILS % (AUTO) 0 % (0-10); EOSINOPHILS % (AUTO) 0 % (0-10); HEMATOCRIT 39 % (40-54); HEMOGLOBIN 13.6 g/dL (13.3-17.7); LYMPHOCYTES # (AUTO) 1.5 10^3/uL (1.0-4.0); LYMPHOCYTES % (AUTO) 16 % (12-44); MEAN CORPUSCULAR HEMOGLOBIN 32 pg (25-34); MEAN CORPUSCULAR HGB CONC 35 g/dL (32-36); MEAN CORPUSCULAR VOLUME 91 fL (80-99); MONOCYTES # (AUTO) 1.1 10^3/uL (0.0-1.0); MONOCYTES % (AUTO) 12 % (0-12); NEUTROPHILS # (AUTO) 6.8 10^3/uL (1.8-7.8); NEUTROPHILS % (AUTO) 71 % (42-75); PLATELET COUNT 192 10^3/uL (130-400); WHITE BLOOD COUNT 9.6 10^3/uL (4.3-11.0)
[2020-05-23] MEDS ORDERED: TETANUS,DIPTH,PERTUSS P/F (BOOSTRIX) 0.5 ML VIAL IM ONE (15:15)
[2020-05-23 15:18] LABS: ALANINE AMINOTRANSFERASE 21 U/L (0-55); ALBUMIN 3.2 GM/DL (3.2-4.5); ALKALINE PHOSPHATASE 83 U/L (40-136); BILIRUBIN,TOTAL 1.7 MG/DL (0.1-1.0); BUN/CREATININE RATIO 14; CALCIUM 8.7 MG/DL (8.5-10.1); CARBON DIOXIDE 23 MMOL/L (21-32); CHLORIDE 93 MMOL/L (98-107); CREATININE SERUM 1.27 MG/DL (0.60-1.30); GFR ESTIMATED 55; GLUCOSE 95 MG/DL (70-105); MAGNESIUM 1.7 MG/DL (1.6-2.4); POTASSIUM 3.6 MMOL/L (3.6-5.0); SODIUM 128 MMOL/L (135-145); TOTAL PROTEIN 6.2 GM/DL (6.4-8.2)
--- NOTE | 2020-05-23 15:18 | ED Fall/Injury ---
General Stated Complaint: FALL History of Present Illness Date Seen by Provider: May 23, 2020 Time Seen by Provider: 15:40 Initial Comments 75-year-old male brought by EMS after falling yesterday approximately 22 times per patient report. He denies hitting his head, however his did not witness all of his falls and is unsure if there was a loss of consciousness. He denies any head pain or neck pain. He is reporting right groin pain, he had surgery for right femur fracture in the fall 2019. He has had chronic pain in this area since then. In addition he was cutting onions at 1:30 in the morning to cook a meal and caused a laceration to his left index finger. A Band-Aid was applied. He is unsure of the last time he received a tetanus vaccine. 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 He chronically drinks scotch or beer, to the point of passing out. He uses tobacco chew or smokes cigars and has a chronic cough. His and environmental educator are present and answer some of the questions for him. His daughters are DPOAs, they live in [facility]. Explained that we will not be able to do a full closure of the wound due to it being greater than 12 hours since the incident. We will close it loosely and protect him with antibiotics. The patient also has prostate cancer. Occurred: this morning Loss of Consciousness: unsure Associated Symptoms (Fall): No Abdominal Pain, No Chest Pain, No Confusion, No Dizziness, No Headache, No Lightheadedness, No Muscle Spasms, No Nausea/Vomiting, No Neck Pain, No Shortness of Air, No Slurred Speech Allergies and Home Medications Allergies Coded Allergies: Penicillins (Unverified Allergy, Unknown, 03/09/11) Sulfa (Sulfonamide Antibiotics) (Verified Allergy, Unknown, 06/07/19) Home Medications Aspirin 81 Mg Tablet.dr, 81 MG PO DAILY, (Reported) Atorvastatin Calcium 10 Mg Tablet, 10 MG PO HS, (Reported) Carvedilol 6.25 Mg Tablet, 6.25 MG PO BID, (Reported) Cephalexin 500 Mg Tablet, 500 MG PO TID Prescribed by: RAUL PEARSON on 05/23/20 1432 Escitalopram Oxalate 20 Mg Tablet, 40 MG PO DAILY, (Reported) Ibuprofen 200 Mg Tablet, 600 MG PO Q8H PRN for PAIN-MILD (1-4), (Reported) Levothyroxine Sodium 200 Mcg Tablet, 100 MCG PO DAILY, (Reported) TAKES OF A 200MCG TO EQUAL 100MCG DAILY Omeprazole 20 Mg Capsule.dr, 20 MG PO DAILY, (Reported) Oxybutynin Chloride 5 Mg Tablet, 5 MG PO BID, (Reported) Oxycodone HCl 10 Mg Tablet, 10 MG PO Q12H Prescribed by: DEWAYNE QUINN on 06/09/19 1201 Patient Home Medication List Home Medication List Reviewed: Yes Review of Systems Review of Systems Constitutional: no symptoms reported, see HPI Eyes: No Symptoms Reported, See HPI Ears, Nose, Mouth, Throat: no symptoms reported, see HPI Respiratory: see HPI, cough, phlegm Cardiovascular: no symptoms reported, see HPI; No chest pain Musculoskeletal: see HPI, joint pain (right hip) All Other Systems Reviewed Negative Unless Noted: Yes Past Zthwxhn-Hpwprn-Zicpdf Hx Past Med/Social Hx: Reviewed Nursing Past Med/Soc Hx Patient Social History Drug of Choice: RX DRUG ABUSE-OPIATES AND BENZODIAZEPINES Type Used: Cigarettes, Smokeless Tobacco Former Smoker, Quit: Jun 16, 2004 Recent Hopitalizations: No Immunizations Up To Date Date of Pneumonia Vaccine: Jan 07, 2019 Date of Influenza Vaccine: Jan 07, 2019 Past Medical History Surgeries: Yes (SEE BELOW) Cardiac, Coronary Stent, Orthopedic, Thyroidectomy Respiratory: Yes COPD Cardiac: Yes (STENT TO LAD 2010--STENT PATENT ON CATH 04/2017) Coronary Artery Disease, High Cholesterol, Hypertension Neurological: No Reproductive Disorders: No Genitourinary: Yes (INCONTINENCE) Gastrointestinal: Yes (GASTRITIS NOTED ON EGD) Diverticulosis, Hemorrhoids, Irritable Bowel Musculoskeletal: Yes (RIGHT HIP/FEMUR FRACTURE/ORIF; L1 KYPHOPLASTY; POOR AMBULATION/USES WALKER) Arthritis, Chronic Back Pain, Fractures Endocrine: Yes (RIGHT THYROIDECTOMY FOR BENIGN GOITER) Hypothyroidsim HEENT: No Cancer: No Psychosocial: Yes (POLYSUBSTANCE ABUSE) Anxiety, Depression Integumentary: Yes (REMOVAL OF SKIN LESIONS) Blood Disorders: No Family Medical History Diabetes PSH: -CARDIAC CATHS--STENT TO LAD IN 2010. LAST CATH 04/2017--PATENT STENT, NO INTERVENTION. -EGD/COLONOSCOPY 2009--GASTRITIS, DIVERTICULOSIS, HEMORRHOIDS, IBS -RIGHT HIP/FEMUR FX/ORIF--12/2018 -L1 KYPHOPLASTY -RIGHT THYROIDECTOMY FOR BENIGN GOITER -REMOVAL OF SKIN LESIONS Physical Exam Vital Signs Vital Signs - First Documented 05/23/20 05/23/20 15:43 15:45 Temp 36.8 Pulse 86 Resp 21 B/P (MAP) 77/52 (60) Pulse Ox 90 O2 Delivery Room Air O2 Flow Rate 2.00 Capillary Refill : Height, Weight, BMI Height: 5'6.00" Weight: 176lbs. 0.0oz. 79.024010qs; 24.60 BMI Method: General Appearance: WD/WN, mild distress HEENT: PERRL/EOMI, normal ENT inspection, TMs normal, pharynx normal Neck: non-tender, full range of motion, supple, normal inspection Cardiovascular: normal peripheral pulses, regular rate, rhythm Respiratory: chest non-tender, lungs clear, normal breath sounds, no respiratory distress Gastrointestinal: normal bowel sounds, non tender, soft Back: normal inspection, no CVA tenderness Extremities: normal inspection, no pedal edema, no calf tenderness, normal capillary refill, other (Limitation of motion to the right hip secondary to pain. No obvious deformity.) Neurologic/Psychiatric: no motor/sensory deficits, alert, normal mood/affect, oriented x 3 Skin: normal color, warm/dry Megha Coma Score Best Eye Response: (4) Open Spontaneously Best Verbal Response: (5) Oriented Best Motor Response: (6) Obeys Commands [place] Total: 15 Procedures/Interventions Wound Location: Upper Extremities (Left index finger) Wound Length (cm): 3 Wound's Depth, Shape: flap, sub Q Wound Explored: clean Irrigated w/ Saline (ccs): 500 Betadine Prep?: Yes Anesthesia: 1% Lidocaine Volume Anesthetic (ccs): 3 Wound Debrided: minimal Suture: Ethlion Suture Size: 5-0 Number of Sutures: 3 Sterile Dressing Applied?: Yes Progress Patient tolerated procedure well, sterile bulky dressing applied. Progress/Results/Core Measures Results/Orders Lab Results Laboratory Tests Test 05/23/20 14:58 Range/Units White Blood Count 9.6 4.3-11.0 10^3/uL Red Blood Count 4.32 4.30-5.52 10^6/uL Hemoglobin 13.6 13.3-17.7 g/dL Hematocrit 39 L 40-54 % Mean Corpuscular Volume 91 80-99 fL Mean Corpuscular Hemoglobin 32 25-34 pg Mean Corpuscular Hemoglobin Concent 35 32-36 g/dL Red Cell Distribution Width 12.7 10.0-14.5 % Platelet Count 192 130-400 10^3/uL Mean Platelet Volume 10.0 9.0-12.2 fL Immature Granulocyte % (Auto) 1 % Neutrophils (%) (Auto) 71 42-75 % Lymphocytes (%) (Auto) 16 12-44 % Monocytes (%) (Auto) 12 0-12 % Eosinophils (%) (Auto) 0 0-10 % Basophils (%) (Auto) 0 0-10 % Neutrophils # (Auto) 6.8 1.8-7.8 10^3/uL Lymphocytes # (Auto) 1.5 1.0-4.0 10^3/uL Monocytes # (Auto) 1.1 H 0.0-1.0 10^3/uL Eosinophils # (Auto) 0.0 0.0-0.3 10^3/uL Basophils # (Auto) 0.0 0.0-0.1 10^3/uL Immature Granulocyte # (Auto) 0.1 0.0-0.1 10^3/uL Prothrombin Time 15.0 H 12.2-14.7 SEC INR Comment 1.1 0.8-1.4 Activated Partial Thromboplast Time 29 24-35 SEC Sodium Level 128 L 135-145 MMOL/L Potassium Level 3.6 3.6-5.0 MMOL/L Chloride Level 93 L 98-107 MMOL/L Carbon Dioxide Level 23 21-32 MMOL/L Anion Gap 12 5-14 MMOL/L Blood Urea Nitrogen 18 7-18 MG/DL Creatinine 1.27 0.60-1.30 MG/DL Estimat Glomerular Filtration Rate 55 BUN/Creatinine Ratio 14 Glucose Level 95 70-105 MG/DL Calcium Level 8.7 8.5-10.1 MG/DL Corrected Calcium 9.3 8.5-10.1 MG/DL Magnesium Level 1.7 1.6-2.4 MG/DL Total Bilirubin 1.7 H 0.1-1.0 MG/DL Aspartate Amino Transf (AST/SGOT) 35 H 5-34 U/L Alanine Aminotransferase (ALT/SGPT) 21 0-55 U/L Alkaline Phosphatase 83 40-136 U/L Troponin I < 0.028 <0.028 NG/ML C-Reactive Protein High Sensitivity 2.84 H 0.00-0.50 MG/DL B-Type Natriuretic Peptide 39.5 <100.0 PG/ML Total Protein 6.2 L 6.4-8.2 GM/DL Albumin 3.2 3.2-4.5 GM/DL Serum Alcohol < 10 <10 MG/DL My Orders Orders - RAUL PEARSON Ct Head Wo (05/23/20 14:52) Alcohol (05/23/20 14:52) BNP (05/23/20 14:52) Cbc With Automated Diff (05/23/20 14:52) Comprehensive Metabolic Panel (05/23/20 14:52) Hs C Reactive Protein (05/23/20 14:52) Magnesium (05/23/20 14:52) Protime With Inr (05/23/20 14:52) Partial Thromboplastin Time (05/23/20 14:52) Troponin I (05/23/20 14:52) Chest 1 View, Ap/Pa Only (05/23/20 14:52) Ekg Tracing (05/23/20 14:52) Ed Iv/Invasive Line Start (05/23/20 14:52) Ns Iv 1000 Ml (Sodium Chloride 0.9%) (05/23/20 15:00) Pelvis With Right Hip 2-3views (05/23/20 14:52) Dipht,Pertuss(Acell),Tet Adult (Boostrix (05/23/20 15:15) Ed Iv/Invasive Line Start (05/23/20 15:37) Ns Iv 1000 Ml (Sodium Chloride 0.9%) (05/23/20 15:45) Medications Given in ED Current Medications Medications Dose Ordered Sig/Malcolm Route Start Time Stop Time Status Last Admin Dose Admin Diphtheria/ Tetanus/Acell Pertussis 0.5 ml ONCE ONCE IM 05/23/20 15:15 05/23/20 15:16 DC 05/23/20 16:08 0.5 ML Vital Signs/I&O 05/23/20 05/23/20 05/23/20 15:43 15:45 17:39 Temp 36.8 36.8 Pulse 86 74 Resp 21 21 B/P (MAP) 77/52 (60) 103/53 (60) Pulse Ox 90 96 98 O2 Delivery Room Air Nasal Cannula Nasal Cannula O2 Flow Rate 2.00 2.00 Progress Progress Note : Time: 15:40 Progress Note Patient seen and evaluated, will obtain CT of the head, x-ray of the chest, pelvis and right hip. Labs, patient hypotensive we will give normal saline 1 L per IV. Tetanus vaccine. Wound to left index finger soaked in Hibiclens and sterile water. 1620 X-rays show no acute findings. Patient's blood pressure has improved since normal saline IV. No complaints at this time. Patient has maintained stable status since admission to the emergency department. Patient has been unable to provide a urine sample, he reports difficulty urinating related to his prostate cancer. No requests at this time.Discharge instructions and return precautions reviewed with the patient, his and environmental educator. All questions answered. Initial ECG Impression Date: May 23, 2020 Initial ECG Impression Time: 14:59 Initial ECG Rate: 82 Initial ECG Rhythm: Normal Sinus Initial ECG Intervals: Normal Initial ECG Intervals AL 192, QRSD 90, QT 408, QTc 477. [place] P 43, QRS 55, T 33. Diagnostic Imaging Diagonstic Imaging: Xray Plain Films/CT/US/NM/MRI: pelvis, hip Comments NAME: RORO MCFARLAND MED REC#: [id number] PT STATUS: REG ER : 1945 PHYSICIAN: RAUL PEARSON ADMIT DATE: 05/23/20/ER Signed Date of Exam:05/23/20 PELVIS WITH RIGHT HIP 2-3VIEWS INDICATION: Pain COMPARISON: 06/07/2019 TECHNIQUE: 3 radiographs of the pelvis and right hip dated 05/23/2020 FINDINGS: Gamma nail is again identified within the proximal right femur, appearing stable from the prior examination without evidence of hardware complication. Heterotopic ossification and chronic fracture fragments associated with the proximal right femur are again identified, appearing stable. Moderate degenerative changes within the partially visualized lower lumbar spine. The sacroiliac joints and pubic symphysis appear intact. Mild degenerative changes within bilateral hips with mild joint space narrowing. No acute fracture or dislocation. No suspicious radiopaque foreign body. Mild background vascular calcifications. IMPRESSION: No acute osseous abnormality with degenerative, postsurgical, and chronic findings as described above. Dictated by: Dictated on workstation # [id number] Dict: 05/23/20 1547 Trans: 05/23/20 1603 [facility] [id number] Interpreted by: SONIA VELASQUEZ MD Electronically signed by: SONIA VELASQUEZ MD 05/23/20 1603 Reviewed: Reviewed by Me Diagonstic Imaging: CT Plain Films/CT/US/NM/MRI: head Comments NAME: RORO MCFARLAND [facility] REC#: [id number] PT STATUS: REG ER : 1945 PHYSICIAN: RAUL PEARSON ADMIT DATE: 05/23/20/ER Signed Date of Exam:05/23/20 CT HEAD WO PROCEDURE: CT head without contrast. TECHNIQUE: Multiple contiguous axial images were obtained through the brain without the use of intravenous contrast. Auto Exposure Controls were utilized during the CT exam to meet ALARA standards for radiation dose reduction. INDICATION: Fall. COMPARISON: Prior head CT from 06/07/2019. FINDINGS: The ventricles and sulci are consistent with the patient's age. No sulcal effacement or midline shift is identified. No acute intra-axial or extra-axial hemorrhage is detected. Cisterns are patent. Visualized paranasal sinuses are clear. IMPRESSION: No acute intracranial process is detected. Dictated by: Dictated on workstation # [id number] Dict: 05/23/20 1547 Trans: 05/23/20 1601 [facility] [id number] Interpreted by: CECILIO MAC MD Electronically signed by: CECILIO MAC MD 05/23/20 1601 Reviewed: Reviewed by Me Diagonstic Imaging: Xray Plain Films/CT/US/NM/MRI: chest Comments NAME: RORO MCFARLAND [facility] REC#: [id number] PT STATUS: REG ER : 1945 PHYSICIAN: RAUL PEARSON ADMIT DATE: 05/23/20/ER Signed Date of Exam:05/23/20 CHEST 1 VIEW, AP/PA ONLY INDICATION: Chronic cough. COMPARISON: 06/08/2019. TECHNIQUE: Single radiograph of the chest dated May 23, 2020. FINDINGS: The cardiac silhouette is within normal limits in size. No significant pulmonary vascular congestion. Calcifications within the aortic arch. The lungs are clear of focal pulmonary opacity. No pleural effusion. No pneumothorax. Chronic right-sided rib fractures. Vertebroplasty changes within the thoracolumbar spine. Scattered osseous degenerative changes. IMPRESSION: No acute cardiopulmonary abnormality with chronic and postsurgical changes as above. Dictated by: Dictated on workstation # [id number] Dict: 05/23/20 1545 Trans: 05/23/20 1604 [facility] [id number] Interpreted by: SONIA VELASQUEZ MD Electronically signed by: SONIA VELASQUEZ MD 05/23/20 1604 Departure Impression Primary Impression: Falls frequently Additional Impressions: Laceration of finger of left hand Qualified Codes: S61.211A - Laceration without foreign body of left index finger without damage to nail, initial encounter ETOH abuse Disposition: HOME, SELF-CARE Condition: Stable Departure-Patient Inst. Decision time for Depature: 16:20 Referrals: DAVID SERRANO MD, RACHEL L MD (PCP/Family) Primary Care Physician Patient Instructions: Laceration Repair With Stitches (DC), Preventing Falls Add. Discharge Instructions: Activity as tolerated. Continue home medications as prescribed. Take antibiotics as prescribed. Keep wound to left index finger clean and dry. Change dressing daily, in 1 to 2 days you can use a Band-Aid. Do not submerge the finger in standing water. Follow-up with Dr. Serrano early next week. Return to the emergency department or Dr. Serrano's office in 7 to 10 days for suture removal. Return to the emergency department for new, urgent healthcare needs. Scripts Cephalexin (Cephalexin) 500 Mg Tablet 500 MG PO TID, #15 TAB 0 Refills Prov: RAUL PEARSON 05/23/20 Copy Copies To 1: DAVID SERRANO MD, AMY ARNP May 23, 2020 15:17
[2020-05-23 15:23] LABS: INR 1.1 (0.8-1.4)
--- NOTE | 2020-05-23 15:49 | Diagnostic Imaging Report ---
INDICATION: Chronic cough. COMPARISON: 06/08/2019. TECHNIQUE: Single radiograph of the chest dated May 23, 2020. FINDINGS: The cardiac silhouette is within normal limits in size. No significant pulmonary vascular congestion. Calcifications within the aortic arch. The lungs are clear of focal pulmonary opacity. No pleural effusion. No pneumothorax. Chronic right-sided rib fractures. Vertebroplasty changes within the thoracolumbar spine. Scattered osseous degenerative changes. IMPRESSION: No acute cardiopulmonary abnormality with chronic and postsurgical changes as above. Dictated by: Dictated on workstation # [id number]
--- NOTE | 2020-05-23 15:50 | Diagnostic Imaging Report ---
PROCEDURE: CT head without contrast. TECHNIQUE: Multiple contiguous axial images were obtained through the brain without the use of intravenous contrast. Auto Exposure Controls were utilized during the CT exam to meet ALARA standards for radiation dose reduction. INDICATION: Fall. COMPARISON: Prior head CT from 06/07/2019. FINDINGS: The ventricles and sulci are consistent with the patient's age. No sulcal effacement or midline shift is identified. No acute intra-axial or extra-axial hemorrhage is detected. Cisterns are patent. Visualized paranasal sinuses are clear. IMPRESSION: No acute intracranial process is detected. Dictated by: Dictated on workstation # [id number]
--- NOTE | 2020-05-23 15:57 | Diagnostic Imaging Report ---
INDICATION: Pain COMPARISON: 06/07/2019 TECHNIQUE: 3 radiographs of the pelvis and right hip dated 05/23/2020 FINDINGS: Gamma nail is again identified within the proximal right femur, appearing stable from the prior examination without evidence of hardware complication. Heterotopic ossification and chronic fracture fragments associated with the proximal right femur are again identified, appearing stable. Moderate degenerative changes within the partially visualized lower lumbar spine. The sacroiliac joints and pubic symphysis appear intact. Mild degenerative changes within bilateral hips with mild joint space narrowing. No acute fracture or dislocation. No suspicious radiopaque foreign body. Mild background vascular calcifications. IMPRESSION: No acute osseous abnormality with degenerative, postsurgical, and chronic findings as described above. Dictated by: Dictated on workstation # [id number]
[2020-05-23] MEDS ORDERED: CEPH500T PO (16:15)
[2020-05-23 17:39] VITALS: BP 103/53
== END 2020-05-23 17:39 | disposition home or self-care (01) ==
LOC: EDUNIT# 14:39 → ER 14:40
DX: S61.211A Laceration without foreign body of left index finger without damage to nail, initial encounter (principal); R29.6 Repeated falls; F10.10 Alcohol abuse, uncomplicated; M25.551 Pain in right hip; R05 Cough; G89.18 Other acute postprocedural pain; R10.31 Right lower quadrant pain; C61 Malignant neoplasm of prostate; I10 Essential (primary) hypertension; I25.10 Atherosclerotic heart disease of native coronary artery without angina pectoris; E78.00 Pure hypercholesterolemia, unspecified; E89.0 Postprocedural hypothyroidism; F41.9 Anxiety disorder, unspecified; F32.9 Major depressive disorder, single episode, unspecified; J44.9 Chronic obstructive pulmonary disease, unspecified; Z23 Encounter for immunization; Z85.818 Personal history of malignant neoplasm of other sites of lip, oral cavity, and pharynx; Z98.890 Other specified postprocedural states; Z87.891 Personal history of nicotine dependence; Z95.5 Presence of coronary angioplasty implant and graft; Z87.81 Personal history of (healed) traumatic fracture; Z79.82 Long term (current) use of aspirin; Z79.890 Hormone replacement therapy; Z88.0 Allergy status to penicillin; Z88.2 Allergy status to sulfonamides; Z83.3 Family history of diabetes mellitus; Y90.0 Blood alcohol level of less than 20 mg/100 ml; W26.0XXA Contact with knife, initial encounter; Y93.G3 Activity, cooking and baking
CPT/HCPCS: 70450; 71045; 73502; 80053; 83735; 83880; 84484; 85025; 85610; 85730; 86141; 93005; 99284; G0480; 36415; 80320; 90715

== ENCOUNTER → 2020-07-18 | Outpatient (CLI) | payer MEDICARE, OTHER ==
[~2020-07-18] MED LIST changes: +CEPH500T PO
--- NOTE | 2020-07-18 14:24 | Diagnostic Imaging Report ---
PROCEDURE: US Venous Lower Ext Renny. TECHNIQUE: Multiple Real-time grayscale images were obtained over the lower extremities in various projections bilaterally. Additional duplex Doppler and color Doppler images were also obtained. INDICATION: Peripheral vascular disease. FINDINGS: There is no evidence of right or left lower extremity DVT. Both lower extremity deep venous systems demonstrate normal compressibility with normal response to augmentation and Valsalva. No fluid collection or mass is detected. IMPRESSION: No evidence of right or left lower extremity DVT. Dictated by: Dictated on workstation # [id number]
== END ==
LOC: RAD 12:07
PROVIDERS: ATTEND Nurse Practitioner Family
DX: I73.9 Peripheral vascular disease, unspecified (principal)
CPT/HCPCS: 93970

== ENCOUNTER 2020-08-19 13:41 | Outpatient (RCR) | payer MEDICARE, OTHER | END 2020-09-02 | disposition home or self-care (01) | LOC: ONC 13:41 | PROVIDERS: ATTEND Radiology Radiation Oncology | DX: C07 Malignant neoplasm of parotid gland (principal); K21.9 Gastro-esophageal reflux disease without esophagitis; I11.9 Hypertensive heart disease without heart failure; E03.9 Hypothyroidism, unspecified; Z98.890 Other specified postprocedural states | CPT/HCPCS: 77290; 77295; 77300; 77334; 77336; 77417; 99205 ==

== ENCOUNTER → 2020-09-04 | Outpatient (CLI) | payer MEDICARE, OTHER ==
--- NOTE | 2020-09-04 18:09 | Diagnostic Imaging Report ---
PROCEDURE: MRI lumbar spine without contrast. TECHNIQUE: Multiplanar, multisequence MRI of the lumbar spine was performed without contrast. INDICATION: Increased low back pain. Prior kyphoplasty at L2. COMPARISON: 03/01/2020. FINDINGS: 5 lumbar type vertebral bodies are visualized with the last well-formed disc space designated L5-S1. Chronic compression fracture is again noted at the L4 vertebral body with relatively stable height loss of approximately 50%. Prior kyphoplasty changes are again seen at L1. There is T2 hyperintense signal involving the posterior aspect of the L5 vertebral body. There is also a T2 hyperintense lesion involving the right lamina of L3. Additional similar-appearing lesions are seen in the inferior endplate of L1, sacrum and pelvis. The conus terminates at the L1 level. No masses are seen associated with the conus or nerve roots of the cauda equina. No epidural collections are identified. Multilevel degenerative changes are seen in the lumbar spine with disc bulges, facet hypertrophy, and buckling of the ligamentum flavum. T12-L1: No significant spinal canal or foraminal stenosis. L1-L2: Facet hypertrophy results in no significant spinal canal or foraminal stenosis. L2-L3: Facet hypertrophy results in no significant spinal canal narrowing and mild bilateral foraminal narrowing. L3-L4: Facet hypertrophy and buckling of the ligamentum flavum results in no significant spinal canal narrowing and moderate right and [id number]-sq-ihwqfh left foraminal stenosis. L4-L5: Facet hypertrophy and buckling of the ligamentum flavum results in no significant spinal canal narrowing and qpmtpuib-bb-mdzkvy right and severe left foraminal stenosis. L5-S1: Broad-based disc bulge, facet hypertrophy, and buckling of the ligamentum flavum results in mild spinal canal narrowing and chafnkbc-ak-zzfqtn right and moderate left foraminal stenosis. Paravertebral soft tissues are unremarkable. IMPRESSION: 1. Interval development of T2 hyperintense lesions involving the inferior endplate of L1, right lamina of L3, posterior aspect of the L5 vertebral body, and sacrum and pelvis. Findings are concerning for metastatic disease and further evaluation with contrast-enhanced MRI of the lumbar spine and pelvis is recommended. Alternatively, bone scan may be performed to further survey the entire axial skeleton. 2. Chronic compression fracture is again seen at the L4 vertebral body with stable height loss of 50%. Prior kyphoplasty changes are seen at L1. No evidence of acute fracture is seen in the lumbar spine. 3. Degenerative changes in the lumbar spine, greatest at L3-L4, L4-L5, and L5-S1. Dictated by: Dictated on workstation # [id number]
== END ==
LOC: RAD 15:30
PROVIDERS: ATTEND Orthopaedic Surgery Orthopaedic Surgery of the Spine
DX: M48.56XA Collapsed vertebra, not elsewhere classified, lumbar region, initial encounter for fracture (principal); M47.816 Spondylosis without myelopathy or radiculopathy, lumbar region; G95.9 Disease of spinal cord, unspecified
CPT/HCPCS: 72148

== ENCOUNTER → 2020-09-12 | Outpatient (CLI) | payer MEDICARE, OTHER ==
--- NOTE | 2020-09-12 18:59 | Diagnostic Imaging Report ---
INDICATION: Back pain and abnormal MRI of the lumbar spine. TECHNIQUE: Patient was administered 26.8 mCi technetium 99m MDP intravenously and whole body imaging was performed after three-hour delay. COMPARISON: Correlation is made with recent MRI of the lumbar spine from 09/04/2020. FINDINGS: There is uptake of activity by the axial and appendicular skeleton. There is uptake by both kidneys with excretion into the urinary bladder. There is diffuse uptake involving the lower lumbar vertebral body, likely L4, correlating with the compression fracture noted on MRI. There is some uptake involving the right posterior approximately sixth rib, indeterminate. No other suspicious uptake is identified. Long bones are unremarkable. IMPRESSION: 1. L4 compression fracture. 2. Uptake involving the right posterior approximately sixth rib, indeterminate. Dictated by: Dictated on workstation # [id number]
== END ==
LOC: CARD 11:03
PROVIDERS: ATTEND Radiology Radiation Oncology
DX: M48.56XA Collapsed vertebra, not elsewhere classified, lumbar region, initial encounter for fracture (principal)
CPT/HCPCS: 78306; A9503

== ENCOUNTER → 2020-09-17 | Outpatient (CLI) | payer MEDICARE, OTHER ==
[~2020-09-17] MED LIST changes: +GADOBUTROL 7.5 MMOL/7.5 ML (GADAVIST) VIAL IV ONE
--- NOTE | 2020-09-17 17:07 | Diagnostic Imaging Report ---
PROCEDURE: MRI lumbar spine with and without contrast. TECHNIQUE: Multiplanar, multisequence MRI of the lumbar spine was performed with and without contrast. INDICATION: Increased low back pain. History of kyphoplasty at L1. Suspicious lesion seen on prior lumbar spine. COMPARISON: 09/04/2020. FINDINGS: The previously described T2 hyperintense, T1 hypointense lesions involving the inferior endplate of L1, right lamina of L3, posterior aspect of the L5 vertebral body, and sacrum and pelvis are again visualized on today's exam and demonstrate postcontrast enhancement. Enhancing lesion is also seen involving the right lamina of L2. There is also enhancement throughout the L4 vertebral body which is favored to represent pathologic compression fracture. No abnormal enhancement is seen within the spinal canal. The remainder of the exam is unchanged since the prior MRI lumbar spine from 09/04/2020. IMPRESSION: 1. The previously visualized lesions scattered in the lumbar spine demonstrate post contrast enhancement, highly concerning for osseous metastatic disease. Recommend correlation with patient history and symptoms and follow-up as indicated. 2. Likely chronic pathologic fracture involving the L4 vertebral body with approximately 50% height loss. 3. No abnormal enhancement is seen within the spinal canal. Dictated by: Dictated on workstation # [id number]
--- NOTE | 2020-09-17 17:15 | Diagnostic Imaging Report ---
PROCEDURE: MRI pelvis with and without contrast. TECHNIQUE: Multiplanar, multisequence MRI of the pelvis was performed with and without contrast. INDICATION: Low back pain. Prior kyphoplasty. COMPARISON: Whole-body bone scan of 09/12/2020 FINDINGS: Bones: There are too numerous to count small T2 hyperintense lesions throughout the entire osseous pelvis and left proximal femur that are most compatible with skeletal metastases. The lesion in the left femur involves the head neck junction but involves less than one third of the intramedullary space and does not post a current risk for pathologic fracture. Please see lumbar spine MRI report for details of the L4 fracture. Soft tissues: No enhancing soft tissue mass within the pelvis. No extraosseous extension of metastases within the pelvis. No free pelvic fluid. No pelvic or inguinal lymphadenopathy. IMPRESSION: 1. 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 2. Please see MRI report of the lumbar spine for details of the L4 fracture. Dictated by: Dictated on workstation # [id number]
== END ==
LOC: RAD 15:30
PROVIDERS: ATTEND Physician Assistant
DX: M89.9 Disorder of bone, unspecified (principal)
CPT/HCPCS: 72158; 72197

== ENCOUNTER → 2020-09-24 | Outpatient (CLI) | payer MEDICARE, OTHER ==
[~2020-09-24] MED LIST changes: -GADOBUTROL 7.5 MMOL/7.5 ML (GADAVIST) VIAL IV ONE
--- NOTE | 2020-09-24 16:32 | Diagnostic Imaging Report ---
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 Patient has numerous osseous lesions in the lumbar spine and pelvis noted on recent MRI study. COMPARISON: Correlation is made with an outside PET/CT study from 05/16/2020 as well as prior MRI of the lumbar spine and pelvis from 09/17/2020. TECHNIQUE: Serum blood glucose level at the time of injection was 99 mg/dL. The patient was administered 10.7 mCi of F-18 FDG intravenously in the left antecubital location and PET imaging was performed from the top of the skull to the mid thighs. Noncontrast CT was also performed for attenuation correction and anatomic correlation. FINDINGS: There is symmetric activity throughout the brain. No mediastinal or hilar hypermetabolism is identified. No pulmonary parenchymal hypermetabolism is identified. There is physiologic activity throughout the GI and tracts of the abdomen and pelvis. There appear to be multiple areas of osseous hypermetabolism. Uptake in the upper thoracic spine on the left side involving the posterior element is seen. There is some uptake in the left shoulder near the acromion. Uptake involving a right posterior 7th rib is noted. There is uptake throughout the L4 vertebral body. There appears to be some uptake involving the left ischium and left femoral neck. IMPRESSION: Multifocal areas of osseous hypermetabolism suggestive of osseous metastatic disease. SUV values for osseous uptake are in 3-4 range. Dictated by: Dictated on workstation # [id number]
== END ==
LOC: RAD 09:45
PROVIDERS: ATTEND Internal Medicine Hematology & Oncology
DX: C76.0 Malignant neoplasm of head, face and neck (principal); R93.7 Abnormal findings on diagnostic imaging of other parts of musculoskeletal system; Z85.89 Personal history of malignant neoplasm of other organs and systems
CPT/HCPCS: 78815; A9552

== ENCOUNTER 2020-10-03 07:07 | Outpatient (CLI) | payer MEDICARE, OTHER ==
[2020-10-03] VITALS (12 sets, daily range): BP systolic 119–164; BP diastolic 57–83
[2020-10-03 07:50] LABS: NEUTROPHILS % (AUTO) 42 % (42-75)
[2020-10-03 07:52] LABS: BASOPHILS % (AUTO) 1 % (0-10); EOSINOPHILS # (AUTO) 0.2 10^3/uL (0.0-0.3); EOSINOPHILS % (AUTO) 5 % (0-10); HEMATOCRIT 39 % (40-54); HEMOGLOBIN 13.3 g/dL (13.3-17.7); LYMPHOCYTES # (AUTO) 1.4 10^3/uL (1.0-4.0); LYMPHOCYTES % (AUTO) 33 % (12-44); MEAN CORPUSCULAR HEMOGLOBIN 30 pg (25-34); MEAN CORPUSCULAR HGB CONC 34 g/dL (32-36); MEAN CORPUSCULAR VOLUME 88 fL (80-99); MONOCYTES # (AUTO) 0.8 10^3/uL (0.0-1.0); MONOCYTES % (AUTO) 19 % (0-12); NEUTROPHILS # (AUTO) 1.8 10^3/uL (1.8-7.8); PLATELET COUNT 148 10^3/uL (130-400); WHITE BLOOD COUNT 4.4 10^3/uL (4.3-11.0)
[2020-10-03] MEDS ORDERED: NS IV 1000 ML 1,000 ML IV STA (08:01)
[2020-10-03 08:12] LABS: INR 1.1 (0.8-1.4); PROTHROMBIN TIME PATIENT 14.3 SEC (12.2-14.7)
[2020-10-03] MEDS ORDERED: LIDOCAINE 1% INJ 20 ML 20 ML VIAL INJ ONE (08:15)
[2020-10-03] MEDS ORDERED: MIDAZOLAM 2 MG/2 ML (VERSED) VIAL IVP ONE (08:15)
[2020-10-03] MEDS ORDERED: fentaNYL INJ 100 MCG/2 ML AMP IVP ONE (08:15)
[2020-10-03 08:23] LABS: BAND NEUTROPHILS 0 %; BASOPHILS % (MANUAL) 0 %; EOSINOPHILS % (MANUAL) 4 %; LYMPHOCYTES % (MANUAL) 24 %; MONOCYTES % (MANUAL) 21 %; NEUTROPHILS % (MANUAL) 51 %; RBC MORPH NORMAL
[2020-10-03] MEDS ORDERED: HYDROcodone/APAP 5 MG/325 MG (LORTAB) TAB PO PRN (09:45)
--- NOTE | 2020-10-03 10:22 | Diagnostic Imaging Report ---
INDICATION: LEFT ISCHIAL TUBEROSITY BX TECHNIQUE: All CT scans use one or more of the following dose optimizing techniques: automated exposure control, MA and/or KvP adjustment based on patient size and exam type or iterative reconstruction. Patient was brought to the CT suite and placed on table in the prone position. Axial imaging through the pelvis was performed to evaluate appropriate entry site. The procedure was performed utilizing conscious sedation with radiology nursing and constant patient monitoring. Patient was administered 50 mcg of fentanyl intravenously and 0.5 mg of Versed intravenously. A bone marrow needle was advanced and placed with its tip along the posterior cortex of the left ischial tuberosity. The bone marrow drill was utilized to pass needle through the cortex. Inner stylet was then removed, and a core biopsy of the lytic lesion involving the left ischial tuberosity was performed. Needle was removed, and hemostasis was obtained. Follow-up imaging shows no complicating features. IMPRESSION: Successful CT-guided core biopsy of the lytic lesion within the left ischial tuberosity, utilizing conscious sedation. Pathology results are currently pending. Dictated by: Dictated on workstation # [id number]
== END 2020-10-03 11:35 | disposition home or self-care (01) ==
LOC: SDC 07:07
PROVIDERS: ATTEND Internal Medicine Hematology & Oncology
DX: C07 Malignant neoplasm of parotid gland (principal); M89.8X8 Other specified disorders of bone, other site; R79.1 Abnormal coagulation profile
CPT/HCPCS: 36415; 77012; 85007; 85027; 85610; 85730; 88307; 88311; 88341; 88342; 99156

== ENCOUNTER 2020-10-10 11:24 | Outpatient (RCR) | payer MEDICARE, OTHER ==
[2020-09-20 11:13] LABS: BASOPHILS % (AUTO) 1 % (0-10); EOSINOPHILS # (AUTO) 0.1 10^3/uL (0.0-0.3); EOSINOPHILS % (AUTO) 1 % (0-10); HEMATOCRIT 44 % (40-54); HEMOGLOBIN 14.9 g/dL (13.3-17.7); LYMPHOCYTES # (AUTO) 1.8 10^3/uL (1.0-4.0); LYMPHOCYTES % (AUTO) 27 % (12-44); MEAN CORPUSCULAR HEMOGLOBIN 30 pg (25-34); MEAN CORPUSCULAR HGB CONC 34 g/dL (32-36); MEAN CORPUSCULAR VOLUME 88 fL (80-99); MEAN PLATELET VOLUME 9.9 fL (9.0-12.2); MONOCYTES # (AUTO) 1.1 10^3/uL (0.0-1.0); MONOCYTES % (AUTO) 16 % (0-12); NEUTROPHILS # (AUTO) 3.6 10^3/uL (1.8-7.8); NEUTROPHILS % (AUTO) 54 % (42-75); PLATELET COUNT 172 10^3/uL (130-400); WHITE BLOOD COUNT 6.5 10^3/uL (4.3-11.0)
[2020-09-20 11:32] LABS: ALANINE AMINOTRANSFERASE 142 U/L (0-55); ALBUMIN 3.4 GM/DL (3.2-4.5); ALKALINE PHOSPHATASE 164 U/L (40-136); BILIRUBIN,TOTAL 0.9 MG/DL (0.1-1.0); BUN/CREATININE RATIO 6; CALCIUM 8.4 MG/DL (8.5-10.1); CARBON DIOXIDE 26 MMOL/L (21-32); CHLORIDE 98 MMOL/L (98-107); CREATININE SERUM 0.65 MG/DL (0.60-1.30); GFR ESTIMATED > 60; GLUCOSE 80 MG/DL (70-105); POTASSIUM 3.5 MMOL/L (3.6-5.0); SODIUM 135 MMOL/L (135-145); TOTAL PROTEIN 7.1 GM/DL (6.4-8.2)
[2020-10-02 06:10] LABS: URINE IMMUNOFIXATION W/ INTERP Complete
== END 2020-10-11 13:42 | disposition home or self-care (01) ==
LOC: ONC 11:24
PROVIDERS: ATTEND Internal Medicine Hematology & Oncology
DX: M89.9 Disorder of bone, unspecified (principal); K21.9 Gastro-esophageal reflux disease without esophagitis; I11.9 Hypertensive heart disease without heart failure; I25.10 Atherosclerotic heart disease of native coronary artery without angina pectoris; E03.9 Hypothyroidism, unspecified; E78.5 Hyperlipidemia, unspecified; E66.01 Morbid (severe) obesity due to excess calories; Z98.890 Other specified postprocedural states; Z85.89 Personal history of malignant neoplasm of other organs and systems; Z87.891 Personal history of nicotine dependence
CPT/HCPCS: 80053; 82784 ×3; 83883; 83970; 84165; 85025; G0463; 84155; 84166; 86335; 99213; 99214

== ENCOUNTER 2020-10-25 12:41 | Outpatient (RCR) | payer MEDICARE, OTHER | END 2021-01-12 | disposition home or self-care (01) | LOC: ONC 12:41 | PROVIDERS: ATTEND Internal Medicine Hematology & Oncology | DX: Z51.0 Encounter for antineoplastic radiation therapy (principal); C07 Malignant neoplasm of parotid gland; I10 Essential (primary) hypertension; I25.10 Atherosclerotic heart disease of native coronary artery without angina pectoris; E78.5 Hyperlipidemia, unspecified; E03.9 Hypothyroidism, unspecified; E66.01 Morbid (severe) obesity due to excess calories; K12.33 Oral mucositis (ulcerative) due to radiation; G89.3 Neoplasm related pain (acute) (chronic); R79.9 Abnormal finding of blood chemistry, unspecified; Z72.0 Tobacco use | CPT/HCPCS: 77290; G0463; 77295; 77300; 77334; 77336; 77417; 77470; 99213 ==